=== PATIENT | male | born 1960 | race Caucasian/White ===

== ENCOUNTER → 2016-05-11 | Outpatient (CLI) | payer BC ==
[~2016-05-11] MED LIST: ALL300 PO; DILT120C41 PO; DILT240C74 PO; ERGO1CAP41 PO; HYG/25 PO; INSDGIPEN SQ; LISI1TAB3 PO; NVLGIPEN SC; OXYC-57 PO; POTA-327 PO; POTA10CA28 PO
--- NOTE | 2016-05-11 12:53 | DIAGNOSTIC IMAGING REPORT ---
KUB CLINICAL HISTORY: N20.1 Ureteral [id number] nephrocalcinosis COMPARISON STUDY: 05/23/2013. CT study dated 02/03/2016 FINDINGS: Multiple left renal mid to lower pole calcifications. This is similar to the patient's prior CT study. No significant right renal nephrocalcinosis. No significant pelvic or abdominal calcifications. Nonobstructive bowel pattern. IMPRESSION: Multiple mid to lower pole left renal calcifications unchanged from the patient's prior CT study. No new or interval finding. Electronically signed by: Mendez Vallejo M.D. 05/11/2016 12:52 PM Dictated Date/Time: 05/11/2016 12:50 PM
== END | disposition home or self-care (01) ==
LOC: C.RAD 12:17
PROVIDERS: ATTEND Urology
DX: N20.1 Calculus of ureter (principal)

== ENCOUNTER → 2016-05-18 | Outpatient (CLI) | payer BC ==
[2016-05-18 13:01] LABS: BASO % 0.3 %; BASO ABS # 0.02 K/uL (0-0.2); COMPLETE YES; EOS % 2.3 %; HEMATOCRIT 47.6 % (42-52); IG% 0.3 %; LYMPH % 29.3 %; MEAN CELL VOLUME 87.8 fL (80-100); MEAN CORPUSCULAR HEMOGLOBIN 30.8 pg (25-34); MEAN CORPUSCULAR HGB CONC 35.1 g/dl (32-36); MEAN PLATELET VOLUME 10.3 fL (7.4-10.4); MONO % 4.9 %; NEUT % 62.9 %; PLATELET COUNT 166 K/uL (130-400); RED BLOOD COUNT 5.42 M/uL (4.7-6.1); WHITE BLOOD COUNT 6.15 K/uL (4.8-10.8)
--- NOTE | 2016-05-18 13:07 | DIAGNOSTIC IMAGING REPORT ---
CHEST 2 VIEWS ROUTINE CLINICAL HISTORY: Preoperative evaluation. Nephrolithiasis. COMPARISON STUDY: Chest radiograph March 05, 2015. FINDINGS: Elevation of the left hemidiaphragm is unchanged. Mild to moderate cardiomegaly is unchanged. There is no evidence of pulmonary edema. No consolidation is identified to suggest pneumonia. There is no pneumothorax or pleural effusion. IMPRESSION: 1. No acute cardiopulmonary findings. 2. Stable cardiomegaly. Electronically signed by: Mihir Naranjo M.D. 05/18/2016 1:06 PM Dictated Date/Time: 05/18/2016 1:05 PM
[2016-05-18 13:37] LABS: BLOOD UREA NITROGEN 21 mg/dl (7-18); BUN/CREATININE RATIO 13.7 (10-20); CARBON DIOXIDE 25 mmol/L (21-32); CHLORIDE 108 mmol/L (98-107); POTASSIUM 3.8 mmol/L (3.5-5.1); SODIUM 142 mmol/L (136-145)
[2016-05-18 14:44] LABS: URINE APPEARANCE CLEAR (CLEAR); URINE BILIRUBIN NEG (NEG); URINE COLOR YELLOW; URINE EPITHELIAL CELL AUTO 0-5 /lpf (0-5); URINE NITRITE NEG (NEG); URINE SPECIFIC GRAVITY 1.016 (1.000-1.030); UROBILINOGEN NEG (NEG)
[2016-05-18 14:48] LABS: MANUAL MICROSCOPIC REQUIRED? NO; REVIEW REQ? NO
== END | disposition home or self-care (01) ==
LOC: C.RAD 12:15
PROVIDERS: ATTEND Urology
DX: N20.0 Calculus of kidney (principal); I51.7 Cardiomegaly

== ENCOUNTER → 2016-05-27 | Outpatient (CLI) | payer BC ==
--- NOTE | 2016-05-27 17:47 | DIAGNOSTIC IMAGING REPORT ---
KUB CLINICAL HISTORY: N20.0 nephrocalcinosis COMPARISON STUDY: 05/11/2016 FINDINGS: Multiple mid to lower pole left renal calcifications unchanged. Right kidney remains obscured. Mild levoscoliosis of the lumbar spine. Mild degenerative change of the hips bilaterally. IMPRESSION: Left renal nephrocalcinosis unchanged. The right kidney is obscured by overlying bowel content. Electronically signed by: Mendez Vallejo M.D. 05/27/2016 5:45 PM Dictated Date/Time: 05/27/2016 5:44 PM
== END | disposition home or self-care (01) ==
LOC: C.RAD 17:22
PROVIDERS: ATTEND Urology
DX: E83.59 Other disorders of calcium metabolism (principal); N29 Other disorders of kidney and ureter in diseases classified elsewhere

== ENCOUNTER → 2016-05-28 | Day surgery (SDC) | payer BC ==
[2016-05-18 15:02] VITALS: Ht 172.7 cm; Wt 109.1 kg
[~2016-05-28] VITALS: Ht 172.7 cm; Wt 109.1 kg
[~2016-05-28] MED LIST changes: +ATROPINE SULFATE 0.1 MG/ML 5ML SYR IV PRN; +CIPROFLOXACIN 400MG / D5W IV SCH; +FENTANYL CITRATE INJ 50 MCG/1 ML 2 ML VIAL IV PRN; +FENTANYL CITRATE INJ 50 MCG/1 ML 2 ML VIAL ONE; +LABETALOL HCL IV 5 MG/ML 20ML IV PRN; +LACTATED RINGER'S 1000ML 1,000 ML IV SCH; +LIDOCAINE HCL 2% 2 ML VIAL (20MG/ML) ONE; +ONDANSETRON INJ 2 MG/ML 2 ML VIAL IV PRN; +ONDANSETRON INJ 2 MG/ML 2 ML VIAL ONE; +PROPOFOL IV EMULSION 10 MG/ML 20 ML VIAL IV ONE
--- NOTE | 2016-05-28 07:03 | History & Physical Bridge Note ---
H&P Re-Evaluation Bridge Note: I have examined the patient, reviewed the History & Physical and in the interval since the performance of the History & Physical I have noted the following changes of clinical significance: No changes noted
--- NOTE | 2016-05-28 09:05 | [facility] Post Operative Brief Note ---
Immediate Operative Summary Operative Date May 28, 2016. Pre-Operative Diagnosis Left Renal Calculi Post-Operative Diagnosis Same Procedure(s) Performed Left Extracorporeal Shock Wave Lithotripsy - Renal Surgeon Dr. Alvarez Principal Account Clerk Surgeon(s) None Estimated Blood Loss 0 mL Findings multiple left renal stones Specimens None Disposition Recovery Room / PACU
--- NOTE | 2016-05-28 09:08 | Discharge Instructions-SurgCtr ---
Discharge Instructions Visit Reason for Visit: Stones Discharge Discharge Diagnosis / Problem: post op left renal stones Discharge Goals Goal(s): Improve function, Improve disease control Activity Recommendations Activity Limitations: as noted below (no driving on narcotics) Anesthesia . Post Anesthesia Instructions: If you have had General Anesthesia or IV Sedation: * Do not drive today. * Resume driving when surgeon permits. * Do not make important decisions or sign legal documents today. * Call surgeon for: 1. Temperature elevations greater than 101 degrees F. 2. Uncontrollable pain. 3. Excessive bleeding. 4. Persistent nausea and vomiting. 5. Medication intolerance (nausea, vomiting or rash). * For nausea and vomiting use only clear liquids such as: tea, soda, bouillon until nausea subsides, then gradually increase diet as tolerated. * If you have any concerns or questions, call your surgeon's office. If physician is unavailable and it is an emergency, call 911 or go to the nearest emergency room. . Diet Recommendations Home Diet: resume previous diet Procedures Procedures Performed: Left Extracorporeal Shock Wave Lithotripsy - Renal Pending Studies Studies pending at discharge: no Medical Emergencies . Who to Call and When: Medical Emergencies: If at any time you feel your situation is an emergency, please call 911 immediately. . Non-Emergent Contact . . "Provider Documentation" section prepared by Rom Alvarez. [place] Drug Monitoring Program Drug Monitoring Findings: reviewed
[2016-05-28 09:52] VITALS: TEMP 36.5
--- NOTE | 2016-05-28 09:59 | Anesthesia Progress Nt - [facility] ---
Anesthesia Post Op Note Date & Time May 28, 2016 at 09:58 Vital Signs Pain Intensity: 0 Vital Signs Past 12 Hours Date Time Temp Pulse Resp B/P Pulse Ox O2 Delivery O2 Flow Rate FiO2 05/28/16 09:49 70 16 94 05/28/16 09:49 70 16 05/28/16 09:48 147/96 05/28/16 09:44 75 14 05/28/16 09:44 76 14 92 05/28/16 09:43 153/102 05/28/16 09:42 78 11 94 05/28/16 09:42 71 11 05/28/16 09:40 36.7 72 16 146/93 95 Room Air 05/28/16 09:40 146/93 05/28/16 09:38 144/107 05/28/16 09:37 84 16 05/28/16 09:37 84 16 93 05/28/16 09:33 142/98 05/28/16 09:32 75 16 93 05/28/16 09:32 76 16 05/28/16 09:29 136/99 05/28/16 09:27 88 26 96 05/28/16 09:27 87 26 05/28/16 09:23 122/96 05/28/16 09:22 82 15 05/28/16 09:22 82 15 98 05/28/16 09:18 139/94 05/28/16 09:17 84 17 97 05/28/16 09:17 84 17 05/28/16 09:13 139/115 05/28/16 09:12 36.4 82 16 133/96 96 Diffusion Mask 6 05/28/16 09:12 91 14 97 05/28/16 09:12 90 14 05/28/16 07:20 36.4 75 18 193/112 95 Room Air Notes Mental Status: alert / awake / arousable, participated in evaluation Pt Amnestic to Procedure: Yes Nausea / Vomiting: adequately controlled Pain: adequately controlled Airway Patency, RR, SpO2: stable & adequate BP & HR: stable & adequate Hydration State: stable & adequate Anesthetic Complications: no major complications apparent
[2016-05-28 10:17] VITALS: BP 132/84; PULSE 76; O2SAT 95
--- NOTE | 2016-05-29 02:38 | OPERATIVE REPORT ---
DATE OF OPERATION: 05/28/2016 PREOPERATIVE DIAGNOSIS: Left renal stone. POSTOPERATIVE DIAGNOSIS: Same. HISTORY OF PRESENTATION: The patient is a 55-year-old male with left renal stone who presents now for ESWL. DESCRIPTION OF THE PROCEDURE: The patient was taken to the operating room where he was placed in the supine position. He had been given preoperative antibiotics and Venodyne stockings. The stones were visualized in 2 views and he received 2500 shocks up to level 5. At the end of the procedure he was transferred to the recovery room in stable condition. I attest to the content of the Intraoperative Record and any orders documented therein. Any exceptio ns are noted below.
== END | disposition home or self-care (01) ==
LOC: X.SURG 07:00
PROVIDERS: ATTEND Urology
DX: N20.0 Calculus of kidney (principal); Z87.442 Personal history of urinary calculi; I12.9 Hypertensive chronic kidney disease with stage 1 through stage 4 chronic kidney disease, or unspecified chronic kidney disease; N18.2 Chronic kidney disease, stage 2 (mild); N25.81 Secondary hyperparathyroidism of renal origin

== ENCOUNTER → 2016-06-08 | Outpatient (CLI) | payer BC ==
[~2016-06-08] MED LIST changes: -ATROPINE SULFATE 0.1 MG/ML 5ML SYR IV PRN; -CIPROFLOXACIN 400MG / D5W IV SCH; -FENTANYL CITRATE INJ 50 MCG/1 ML 2 ML VIAL IV PRN; -FENTANYL CITRATE INJ 50 MCG/1 ML 2 ML VIAL ONE; -LABETALOL HCL IV 5 MG/ML 20ML IV PRN; -LACTATED RINGER'S 1000ML 1,000 ML IV SCH; -LIDOCAINE HCL 2% 2 ML VIAL (20MG/ML) ONE; -ONDANSETRON INJ 2 MG/ML 2 ML VIAL IV PRN; -ONDANSETRON INJ 2 MG/ML 2 ML VIAL ONE; -PROPOFOL IV EMULSION 10 MG/ML 20 ML VIAL IV ONE
--- NOTE | 2016-06-08 08:58 | DIAGNOSTIC IMAGING REPORT ---
KUB CLINICAL HISTORY: Nephrolithiasis. Recent lithotripsy. FINDINGS: An AP abdominal radiograph is compared to study dated 05/27/16. The right renal shadow is largely obscured by overlying bowel gas. There are several small nonobstructing left renal calculi measuring up to 6 mm. The stone burden appears diminished as compared to the 05/27/2016 examination. No calcifications are clearly seen projecting over the ureters. Suture material is noted in the pelvis. There is no radiographic evidence of bowel obstruction. Mild lumbar sacral spondylosis and scoliosis is observed. IMPRESSION: 1. There are numerous small nonobstructing left renal calculi, with the stone burden diminished as compared to the 05/27/2016 examination. 2. No right renal calculi are identified and the right renal shadow was largely obscured by overlying bowel gas. Electronically signed by: Catalino Markham M.D. 06/08/2016 8:56 AM Dictated Date/Time: 06/08/2016 8:54 AM
[2016-06-08 09:36] LABS: HEMATOCRIT 48.5 % (42-52); MEAN CELL VOLUME 87.1 fL (80-100); MEAN CORPUSCULAR HEMOGLOBIN 30.2 pg (25-34); MEAN CORPUSCULAR HGB CONC 34.6 g/dl (32-36); MEAN PLATELET VOLUME 10.4 fL (7.4-10.4); PLATELET COUNT 156 K/uL (130-400); RED BLOOD COUNT 5.57 M/uL (4.7-6.1); WHITE BLOOD COUNT 6.44 K/uL (4.8-10.8)
[2016-06-08 09:37] LABS: URINE APPEARANCE CLEAR (CLEAR); URINE BILIRUBIN NEG (NEG); URINE COLOR YELLOW; URINE EPITHELIAL CELL AUTO 0-5 /lpf (0-5); URINE NITRITE NEG (NEG); URINE SPECIFIC GRAVITY 1.015 (1.000-1.030); UROBILINOGEN NEG (NEG)
[2016-06-08 09:42] LABS: MANUAL MICROSCOPIC REQUIRED? NO; REVIEW REQ? NO
[2016-06-08 09:48] LABS: ALT/SGPT 40 U/L (12-78); BLOOD UREA NITROGEN 30 mg/dl (7-18); BUN/CREATININE RATIO 18.7 (10-20); CALCIUM 9.7 mg/dl (8.5-10.1); CARBON DIOXIDE 23 mmol/L (21-32); CHLORIDE 104 mmol/L (98-107); GLUCOSE 125 mg/dl (70-99); MAGNESIUM 2.2 mg/dl (1.8-2.4); SODIUM 138 mmol/L (136-145); URIC ACID 6.2 mg/dl (2.6-7.2)
[2016-06-08 09:51] LABS: ALB/GLOB RATIO 1.2 (0.9-2); ALKALINE PHOSPHATASE 103 U/L (45-117); AST/SGOT 19 U/L (15-37)
[2016-06-08 09:58] LABS: URINE PROTIEN/CREAT RATIO 0.6 (0-0.2); URINE TOTAL PROTEIN 60.4 mg/dl (0-11.9)
--- NOTE | 2016-06-14 11:01 | CODING QUERY MEDICAL NECESSITY ---
SUPPORTING DIAGNOSIS NEEDED A supporting diagnosis is required for the test/procedure performed on this patient in order for us to be reimbursed by the patient's insurance. Please provide a supporting diagnosis for the following test/procedure listed below next to the test name along with your signature. *If there is no additional diagnosis for this patient that would support the following test/procedure please document that below next to the test/procedure. Test(s)/Procedure(s) that require a supporting diagnosis: * VITAMIN D 25-HYDROXY DIAGNOSIS: * DOS: 06/08/16 Provider Signature: Date: Thank you Feli Ryan Health Information Management Once completed, please kindly fax back to [phone] For questions please call [phone]
== END | disposition home or self-care (01) ==
LOC: C.RAD 08:15
PROVIDERS: ATTEND Urology
DX: N20.0 Calculus of kidney (principal); I12.9 Hypertensive chronic kidney disease with stage 1 through stage 4 chronic kidney disease, or unspecified chronic kidney disease; N18.2 Chronic kidney disease, stage 2 (mild); E55.9 Vitamin D deficiency, unspecified

== ENCOUNTER → 2016-10-11 | Outpatient (CLI) | payer BC ==
[2016-10-11 09:51] LABS: BLOOD UREA NITROGEN 20 mg/dl (7-18); BUN/CREATININE RATIO 11.5 (10-20); CALCIUM 9.3 mg/dl (8.5-10.1); CARBON DIOXIDE 27 mmol/L (21-32); CHLORIDE 107 mmol/L (98-107); GLUCOSE 210 mg/dl (70-99); POTASSIUM 3.9 mmol/L (3.5-5.1); SODIUM 142 mmol/L (136-145)
[2016-10-11 09:52] LABS: PHOSPHORUS 2.5 mg/dl (2.5-4.9); URIC ACID 8.2 mg/dl (2.6-7.2)
== END | disposition home or self-care (01) ==
LOC: C.LAB 07:53
PROVIDERS: ATTEND Internal Medicine Nephrology
DX: N18.2 Chronic kidney disease, stage 2 (mild) (principal); N20.0 Calculus of kidney; N25.81 Secondary hyperparathyroidism of renal origin

== ENCOUNTER 2016-11-18 13:53 | Inpatient (IN) | payer BC ==
[~2016-11-18] VITALS: Ht 172.7 cm; Wt 111.0 kg
[~2016-11-18 13:53] MED LIST changes: -DILT120C41 PO; -ERGO1CAP41 PO; -HYG/25 PO; -INSDGIPEN SQ; -NVLGIPEN SC; -POTA10CA28 PO
[2016-11-18] MEDS ORDERED: SODIUM CHLORIDE 0.9% 1000ML 1,000 ML IV STA (14:09)
[2016-11-18 14:24] LABS: URINE APPEARANCE CLEAR (CLEAR); URINE BILIRUBIN NEG (NEG); URINE COLOR YELLOW; URINE NITRITE NEG (NEG); URINE PH 5.5 (4.5-7.5); URINE SPECIFIC GRAVITY 1.035 (1.000-1.030); UROBILINOGEN NEG (NEG)
[2016-11-18] MEDS ORDERED: POTA10CA28 PO (14:26)
[2016-11-18] MEDS ORDERED: DILT120C41 PO (14:26)
[2016-11-18] MEDS ORDERED: ERGO1CAP41 PO (14:26)
[2016-11-18] MEDS ORDERED: HYG/25 PO (14:26)
[2016-11-18 14:27] LABS: BASO % 0.4 %; BASO ABS # 0.03 K/uL (0-0.2); COMPLETE YES; EOS % 1.5 %; IG% 0.2 %; LYMPH % 18.3 %; LYMPH ABS # 1.55 K/uL (1.2-3.4); MEAN CELL VOLUME 86.6 fL (80-100); MEAN CORPUSCULAR HEMOGLOBIN 30.5 pg (25-34); MEAN CORPUSCULAR HGB CONC 35.2 g/dl (32-36); MEAN PLATELET VOLUME 10.9 fL (7.4-10.4); NEUT % 73.6 %; PLATELET COUNT 229 K/uL (130-400); RED BLOOD COUNT 5.31 M/uL (4.7-6.1); WHITE BLOOD COUNT 8.47 K/uL (4.8-10.8)
[2016-11-18 14:30] LABS: MANUAL MICROSCOPIC REQUIRED? NO; REVIEW REQ? NO
[2016-11-18] MEDS ORDERED: DKA GOAL RANGE 150-250 mg/dl 1 EA ONE (14:30)
[2016-11-18 14:39] LABS: ISTAT CARBON DIOXIDE 22 mEq/l (24-31); ISTAT CHLORIDE 89 mEq/L (101-112); ISTAT CREATININE 2.3 mg/dl (0.6-1.3); ISTAT HEMATOCRIT 48 % (42-52); ISTAT HEMOGLOBIN 16.3 g/dl (14.0-18.0); ISTAT IONIZED CALCIUM 1.13 mmol/l (1.12-1.32); ISTAT SODIUM 126 mEq/L (135-144)
[2016-11-18 14:56] LABS: BETA-HYDROXYBUTYRATE 1.27 mg/dL (0.2-2.81); BUN/CREATININE RATIO 11.7 (10-20); CREATININE 2.9 mg/dl (0.60-1.40)
[2016-11-18 14:59] LABS: VEN BLD GAS O2 SATURATION 86.1 %; VEN BLOOD GAS BASE EXCESS -1.9 mEq/L
[2016-11-18] MEDS ORDERED: GLUCOSE 10 TABS/TUBE PO PRN (15:00)
[2016-11-18] MEDS ORDERED: GLUCOSE 40% GEL 15 GM TUBE PO PRN (15:00)
[2016-11-18] MEDS ORDERED: DEXTROSE 50% 50 ML SYR IV PRN (15:00)
[2016-11-18] MEDS ORDERED: INSULIN HUMAN REGULAR IV BOLUS 3 UNIT in SYRINGE 0 ML IV SCH (15:00)
[2016-11-18] MEDS ORDERED: GLUCAGON FOR INJ 1 MG VIAL SQ PRN (15:00)
[2016-11-18] MEDS: INSULIN REGULAR 250 UNITS in SODIUM CHLORIDE 0.9% 250ML 250 ML IV SCH ×5 (15:06→21:51)
[2016-11-18] MEDS ORDERED: INSULIN IV INFUSION PROTOCOL STA (16:25)
[2016-11-18] MEDS ORDERED: ONDANSETRON INJ 2 MG/ML 2 ML VIAL IV PRN (16:30)
[2016-11-18] MEDS ORDERED: ACETAMINOPHEN 325 MG TAB PO PRN (16:30)
[2016-11-18] MEDS ORDERED: HHS GOAL RANGE 250-350 mg/dl ONE (16:30)
[2016-11-18] MEDS ORDERED: MAGNESIUM HYDROXIDE SUSP 30 ML UDC PO PRN (16:30)
[2016-11-18] MEDS ORDERED: POLYETHYLENE (MIRALAX) 17 GM PACK PO PRN (16:30)
[2016-11-18] MEDS ORDERED: ALUMINUM/MAGNESIUM/SIMETH (MAALOX MAX) 30 ML UDC PO PRN (16:30)
[2016-11-18] MEDS ORDERED: MODERATE STRESS LEVEL ONE (16:30)
[2016-11-18] MEDS ORDERED: ZOLPIDEM TARTRATE 5 MG TAB PO PRN (16:30)
--- NOTE | 2016-11-18 16:46 | Medical Student: [facility] ---
Med Student History & Physical Date & Time of Service: Nov 18, 2016 at 15:49 Chief Complaint: Dizzy, Dry Mouth Primary Care Physician: Alex Sol D.O. History of Present Illness Source: patient Arsen Castro is a 56 yo male, with PMHx of HTN and recurrent kidney stones, who presented to the ED referred by his PCP for abnormal blood sugar/labs complaining of feeling "jittery," increased thirst/urination and dry mouth for 4 days. Patient reports associated symptoms of double/blurry vision, some tingling in both hands, intermittent palpitations at night, and lightheadedness upon standing during this same 4 day period. He notes decreased appetite and disinterest in sugary beverages. Patient states he has had loose stool since colon polyp removal in 2009, but for last 4 days stools have been more formed/ soft. Patient denies fever, chills, room spinning dizziness, chest pain, shortness of breath, flank pain, hematuria, abdominal pain, nausea, vomiting, diarrhea, or constipation. Past Medical/Surgical History Medical Problems: -HTN -Recurrent kidney stones (9 since 2008, some needing lithotripsy) -Colon polyps removed 2009 (family history of colon cancer) Family History Father: diabetes, cancer (bone) Mother: HTN, diabetes, cancer (colon) Social History Smoking Status: Never Smoker Alcohol Use: occasionally (1 drink 1-2x a month) Drug Use: none Marital Status: single Occupational Status: employed ([employer]) Allergies Coded Allergies: No Known Allergies (Unverified , 05/28/16) Medications Allopurinol (Allopurinol), 300 MG PO QAM Chlorthalidone (Hygroton), 25 MG PO DAILY Diltiazem Hcl (Dilt-Xr), 120 MG PO DAILY Ergocalciferol (Vitamin D 91867 Unit), 50,000 UNITS PO MONTHLY Lisinopril (Zestril), 30 MG PO QAM Potassium Chloride (Micro-K Ext Rel), 20 MEQ PO TID Review of Systems Constitutional: No fever, No chills, No sweats, No weight loss Eyes: + worsening of vision (blurry), + diplopia, No eye pain, No redness ENT: No hearing loss, No nasal symptoms, No sore throat Respiratory: No cough, No sputum, No shortness of breath Cardiovascular: + palpitations, No chest pain, No edema Abdomen: + problem reported (change in stool from loose (since colon resection ) to soft/formed), No pain, No nausea, No vomiting, No diarrhea, No constipation Musculoskeletal: No joint pain, No muscle pain, No swelling Genitourinary - Male: + urinary frequency, No dysuria, No urinary incontinence Neurologic: + numbness/tingling (tingling in hands), + problem reported ( lightheaded upon standing), No memory loss, No vertigo Psychiatric: No anxiety Endocrine: + excessive thirst, + excessive urination Hematologic / Lymphatic: No abnormal bleeding/bruising, No swollen lymph nodes Integumentary: No rash, No new/changing skin lesions Physical Exam Vital Signs (24 Hours) Date Time Temp Pulse Resp B/P (MAP) Pulse Ox O2 Delivery O2 Flow Rate FiO2 11/18/16 13:56 36.8 105 18 109/69 95 Room Air General Appearance: WD/WN, no apparent distress Head: normocephalic, atraumatic Eyes: normal inspection, PERRL, EOMI ENT: normal ENT inspection, hearing grossly normal, pharynx normal, + pertinent finding (right TM normal, left TM unable to visualize secondary to wax ) Neck: supple, no adenopathy Respiratory/Chest: chest non-tender, lungs clear, normal breath sounds, no respiratory distress, no accessory muscle use Cardiovascular: regular rate, rhythm, no edema, no murmur Abdomen/GI: normal bowel sounds, non tender, soft, no organomegaly Back: normal inspection, no muscle spasm, normal range of motion Extremities/Musculoskelatal: normal inspection, no calf tenderness, no pedal edema, normal range of motion, non-tender Neurologic/Psych: no motor/sensory deficits, alert, normal mood/affect, oriented x 3 Skin: normal color, warm/dry, no rash Lymphatic: no adenopathy Diagnostics Laboratory Results Results Past 24 Hours Test 11/18/16 14:03 11/18/16 14:10 11/18/16 14:23 11/18/16 14:43 Range/Units Bedside Glucose > 600 70-99 mg/dl White Blood Count 8.47 4.8-10.8 K/uL Red Blood Count 5.31 4.7-6.1 M/uL Hemoglobin 16.2 14.0-18.0 g/dL Hematocrit 46.0 42-52 % Mean Corpuscular Volume 86.6 80-100 fL Mean Corpuscular Hemoglobin 30.5 25-34 pg Mean Corpuscular Hemoglobin Concent 35.2 32-36 g/dl Platelet Count 229 130-400 K/uL Mean Platelet Volume 10.9 7.4-10.4 fL Neutrophils (%) (Auto) 73.6 % Lymphocytes (%) (Auto) 18.3 % Monocytes (%) (Auto) 6.0 % Eosinophils (%) (Auto) 1.5 % Basophils (%) (Auto) 0.4 % Neutrophils # (Auto) 6.23 1.4-6.5 K/uL Lymphocytes # (Auto) 1.55 1.2-3.4 K/uL Monocytes # (Auto) 0.51 0.11-0.59 K/uL Eosinophils # (Auto) 0.13 0-0.5 K/uL Basophils # (Auto) 0.03 0-0.2 K/uL RDW Standard Deviation 42.3 36.4-46.3 fL RDW Coefficient of Variation 13.4 11.5-14.5 % Immature Granulocyte % (Auto) 0.2 % Immature Granulocyte # (Auto) 0.02 0.00-0.02 K/uL Urine Color YELLOW Urine Appearance CLEAR CLEAR Urine pH 5.5 4.5-7.5 Urine Specific [place] 1.035 1.000-1.030 Urine Protein NEG NEG Urine Glucose (UA) 3+ NEG Urine Ketones NEG NEG Urine Occult Blood NEG NEG Urine Nitrite NEG NEG Urine Bilirubin NEG NEG Urine Urobilinogen NEG NEG Urine Leukocyte Esterase NEG NEG Sodium Level 125 136-145 mmol/L Potassium Level 4.0 3.5-5.1 mmol/L Chloride Level 89 98-107 mmol/L Carbon Dioxide Level 23 21-32 mmol/L Anion Gap 13.0 19.0 16-25 mmol/L Blood Urea Nitrogen 34 7-18 mg/dl Creatinine 2.90 0.60-1.40 mg/dl Est Creatinine Clear Calc Drug Dose 34.8 ml/min Estimated GFR () 27.0 Estimated GFR (Non- 23.3 BUN/Creatinine Ratio 11.7 10-20 Random Glucose 757 70-99 mg/dl Calcium Level 9.0 8.5-10.1 mg/dl Beta-Hydroxybutyric Acid 1.27 0.2-2.81 mg/dL Bedside Hemoglobin 16.3 14.0-18.0 g/dl Bedside Hematocrit 48 42-52 % Bedside Sodium 126 135-144 mEq/L Bedside Potassium 4.2 3.3-5.0 mEq/L Bedside Chloride 89 101-112 mEq/L Bedside Total CO2 22 24-31 mEq/l Bedside Blood Urea Nitrogen 34 7-18 mg/dl Bedside Creatinine 2.3 0.6-1.3 mg/dl Bedside Glucose (other) > 700 70-99 mg/dl Bedside Ionized Calcium (Mary) 1.13 1.12-1.32 mmol/l Venous Blood pH 7.41 7.36-7.41 Venous Blood Partial Pressure CO2 36 38.0-50.0 mmHg Venous Blood Partial Pressure O2 53 mmHg Venous Blood HCO3 22 mmol/L Venous Blood Oxygen Saturation 86.1 % Venous Blood Base Excess -1.9 mEq/L Impression Assessment and Plan Arsen Castro is a 56 yo male with PMHx of HTN, gout, and recurrent kidney stones , presented to the ED, referred from PCP, with elevated blood sugars in the 700s. Patient had symptoms of hyperglycemia (dry mouth, excessive thirst/ urination, tingling in fingers, blurry/double vision, lightheaded, palpitations at night). Patient will be admitted overnight for treatment of high blood sugars and to monitor acute renal injury. T2DM, new onset - Initial insulin injection of (Insulin Human Regular 3 unit/Syringe) followed by insulin drip (Insulin Human Regular 250 units/Sodium Chloride at 2.5ml/hr) started in ED. 10 units of Lantus given for basal insulin. - 1 bolus IV NS fluids with potassium (with 200ml KCl in fluids, discontinue home medication: Micro-K Ext Rel (Potassium Chloride) 10 Meq Capcr 20 Meq PO TID ) - Urinalysis to look for ketones/glucose in urine - Beta hydroxybutyrate level negative, making DKA less likely - Venous blood gas showed pCO2 36, pH 7.41, pO2 53, HCO3 22 - Consult endocrinology - Consult diabetes nurse educators - Monitor insulin levels overnight to determine senior care medication treatment plan Acute kidney injury - Monitor Cr (today 2.9), BUN, Cr/BUN ratio, FeNa, electrolytes - Urinalysis shows 1.035 specific gravity, indicating patient can still concentrate urine - 1 bolus IV fluids NS - Discontinue home medications that could further damage kidney (Zestril ( Lisinopril) 30 Mg Tab 30 Mg PO QAM, Allopurinol 300 Mg Tab 300 Mg PO QAM, [place] (Chlorthalidone) 25 Mg Tab 25 Mg PO DAILY) HTN, chronic - Monitor BPs while in hospital - Continue home medication (Dilt-Xr (Diltiazem Hcl) 120 Mg Cap 120 Mg PO DAILY) Level of Care Med/Surg Resuscitation Status FULL RESUSCITATION DVT Prophylaxis unfractionated heparin SQ
--- NOTE | 2016-11-18 16:53 | History and Physical ---
History & Physical Date & Time of Service: Nov 18, 2016 at 16:30 Chief Complaint: Dizzy, Dry Mouth Primary Care Physician: Alex Sol D.O. History of Present Illness Source: patient 56 y/o M Hx HTN - pt was at his primary MDs office one day prior. Routine labs revealed an elevated glucose and he was instructed to attend the hospital the following day. He admits to some polydipsia and polyuria but was otherwise asymptomatic and did not know he was diabetic. Initial glucose registered at over 700. Labs were also notable for MERCED. Past Medical/Surgical History Medical Problems: (1) Benign hypertension Status: Chronic (2) Colon Surgery Status: Resolved (3) Kidney stone Status: Chronic (4) Lithotripsy Status: Resolved 5) Gout Family History Patient reports no known family medical history. DM, colon CA Social History Does not drink or smoke Smoking Status: Never Smoker Drug Use: none Marital Status: single Occupational Status: employed Allergies Coded Allergies: No Known Allergies (Unverified , 05/28/16) Home Medications Scheduled Allopurinol (Allopurinol), 300 MG PO QAM Chlorthalidone (Hygroton), 25 MG PO DAILY Diltiazem Hcl (Dilt-Xr), 120 MG PO DAILY Ergocalciferol (Vitamin D 32017 Unit), 50,000 UNITS PO MONTHLY Lisinopril (Zestril), 30 MG PO QAM Potassium Chloride (Micro-K Ext Rel), 20 MEQ PO TID Review of Systems Constitutional: No fever, No chills, No sweats Eyes: No worsening of vision ENT: No hearing loss, No unusual epistaxis, No nasal symptoms Respiratory: No cough, No sputum, No wheezing Cardiovascular: No chest pain, No orthopnea, No PND Abdomen: No pain, No nausea, No vomiting Musculoskeletal: No joint pain Genitourinary - Male: No hematuria, No dysuria, No urinary frequency, No urinary urgency Neurologic: No memory loss, No paralysis, No weakness Psychiatric: No depression symptoms Endocrine: + excessive thirst, + excessive urination, No fatigue Hematologic / Lymphatic: No abnormal bleeding/bruising, No clotting problems Integumentary: No rash Allergic / Immunologic: No environmental allergies Physical Exam Vital Signs Date Time Temp Pulse Resp B/P (MAP) Pulse Ox O2 Delivery O2 Flow Rate FiO2 11/18/16 16:16 87 18 135/112 95 Room Air 11/18/16 13:56 36.8 105 18 109/69 95 Room Air General Appearance: WD/WN, no apparent distress Head: normocephalic, atraumatic Eyes: normal inspection ENT: normal ENT inspection, hearing grossly normal, TMs normal, pharynx normal Neck: supple, no adenopathy, thyroid normal, no JVD Respiratory/Chest: chest non-tender, lungs clear, normal breath sounds Cardiovascular: regular rate, rhythm, no edema, no gallop, no JVD, no murmur, normal peripheral pulses Abdomen/GI: normal bowel sounds, non tender, soft Back: normal inspection, no CVA tenderness Extremities/Musculoskelatal: normal inspection, no calf tenderness, normal capillary refill, no pedal edema, normal range of motion 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, no motor/sensory deficits, alert, normal mood/affect, normal reflexes, oriented x 3 Skin: normal color, warm/dry, no rash Diagnostics Laboratory Results Results Past 24 Hours Test 11/18/16 14:03 11/18/16 14:10 11/18/16 14:23 11/18/16 14:43 Range/Units Bedside Glucose > 600 70-99 mg/dl White Blood Count 8.47 4.8-10.8 K/uL Red Blood Count 5.31 4.7-6.1 M/uL Hemoglobin 16.2 14.0-18.0 g/dL Hematocrit 46.0 42-52 % Mean Corpuscular Volume 86.6 80-100 fL Mean Corpuscular Hemoglobin 30.5 25-34 pg Mean Corpuscular Hemoglobin Concent 35.2 32-36 g/dl Platelet Count 229 130-400 K/uL Mean Platelet Volume 10.9 7.4-10.4 fL Neutrophils (%) (Auto) 73.6 % Lymphocytes (%) (Auto) 18.3 % Monocytes (%) (Auto) 6.0 % Eosinophils (%) (Auto) 1.5 % Basophils (%) (Auto) 0.4 % Neutrophils # (Auto) 6.23 1.4-6.5 K/uL Lymphocytes # (Auto) 1.55 1.2-3.4 K/uL Monocytes # (Auto) 0.51 0.11-0.59 K/uL Eosinophils # (Auto) 0.13 0-0.5 K/uL Basophils # (Auto) 0.03 0-0.2 K/uL RDW Standard Deviation 42.3 36.4-46.3 fL RDW Coefficient of Variation 13.4 11.5-14.5 % Immature Granulocyte % (Auto) 0.2 % Immature Granulocyte # (Auto) 0.02 0.00-0.02 K/uL Urine Color YELLOW Urine Appearance CLEAR CLEAR Urine pH 5.5 4.5-7.5 Urine Specific [place] 1.035 1.000-1.030 Urine Protein NEG NEG Urine Glucose (UA) 3+ NEG Urine Ketones NEG NEG Urine Occult Blood NEG NEG Urine Nitrite NEG NEG Urine Bilirubin NEG NEG Urine Urobilinogen NEG NEG Urine Leukocyte Esterase NEG NEG Sodium Level 125 136-145 mmol/L Potassium Level 4.0 3.5-5.1 mmol/L Chloride Level 89 98-107 mmol/L Carbon Dioxide Level 23 21-32 mmol/L Anion Gap 13.0 19.0 16-25 mmol/L Blood Urea Nitrogen 34 7-18 mg/dl Creatinine 2.90 0.60-1.40 mg/dl Est Creatinine Clear Calc Drug Dose 34.8 ml/min Estimated GFR () 27.0 Estimated GFR (Non- 23.3 BUN/Creatinine Ratio 11.7 10-20 Random Glucose 757 70-99 mg/dl Calcium Level 9.0 8.5-10.1 mg/dl Beta-Hydroxybutyric Acid 1.27 0.2-2.81 mg/dL Bedside Hemoglobin 16.3 14.0-18.0 g/dl Bedside Hematocrit 48 42-52 % Bedside Sodium 126 135-144 mEq/L Bedside Potassium 4.2 3.3-5.0 mEq/L Bedside Chloride 89 101-112 mEq/L Bedside Total CO2 22 24-31 mEq/l Bedside Blood Urea Nitrogen 34 7-18 mg/dl Bedside Creatinine 2.3 0.6-1.3 mg/dl Bedside Glucose (other) > 700 70-99 mg/dl Bedside Ionized Calcium (Mary) 1.13 1.12-1.32 mmol/l Venous Blood pH 7.41 7.36-7.41 Venous Blood Partial Pressure CO2 36 38.0-50.0 mmHg Venous Blood Partial Pressure O2 53 mmHg Venous Blood HCO3 22 mmol/L Venous Blood Oxygen Saturation 86.1 % Venous Blood Base Excess -1.9 mEq/L Test 11/18/16 16:01 Range/Units Bedside Glucose 490 70-99 mg/dl Impression Assessment and Plan 56 y/o M Hx HTN, gout - pt was at his primary MDs office one day prior. Routine labs revealed an elevated glucose and he was instructed to attend the hospital the following day. He admits to some polydipsia and polyuria but was otherwise asymptomatic and did not know he was diabetic. Initial glucose registered at over 700. Labs were also notable for MERCED. 1) New onset DM - no acidosis or ketosis present - pt placed on an insulin drip and initial dose of Lantus provided. We will consult endocrinology to assist with a home regimen and for outpt f/u. Diabetic teaching and nutrition consult requested. Electrolytes will be trended 2) MERCED - aggressive IVF , trend BMP , urine Na and Creat requested. 3) HTN - we have held his diuretic and GENE due to MERCED - will cont Diltiazem and provide Hydralazine as needed. 4) Gout - Allopurinol held due to MERCED - no current flare. Full code - Heparin prophylaxis Total time for this admit including review of labs, meds, records - discussion with pt and ER attending - 35 min Level of Care Med/Surg Resuscitation Status FULL RESUSCITATION VTE Prophylaxis VTE Risk Assessment Done? Y/N: Yes Risk Level: Low Given or contraindicated: Unfractionated heparin SQ
--- NOTE | 2016-11-18 17:57 | EMERGENCY ROOM VISIT NOTE ---
History Report prepared by Yvonne: Genoveva Tapia Under the Supervision of: Dr. Nikko Collins M.D. First contact with patient: 14:09 Chief Complaint: HYPERGLYCEMIA Stated Complaint: DIZZY, DRY MOUTH Nursing Triage Summary: Pt sent for BSG of 741. Dizziness, dry mouth for a couple days. Had labwork done yesterday. Denies pain. History of Present Illness 1 The patient is a 56 year old male who presents to the Emergency Room with complaints of constant hyperglycemia beginning RN FIELD. The patient states that he had been feeling dizzy for the past 5 days. He also reports a dry mouth, increased thirst, and increased urination. He saw his PCP for these symptoms and had blood work done yesterday. This blood work revealed a BSG of 741. The patient was called this morning and advised to come to the ED for further evaluation. He denies chest pain, shortness of breath, abdominal pain, nausea, and vomiting. He denies any personal history of DM. He does have a history of HTN. Source of History: patient Onset: RN FIELD Position: other (global) Symptom Intensity: BSG 741 Quality: other (hyperglycemia) Timing: constant Associated Symptoms: + urinary symptoms (increased urination), No chest pain , No SOB, No nausea, No vomiting, No abdominal pain Note: Pt notes dizziness, dry mouth, and increased thirst. Review of Systems See HPI for pertinent positives & negatives. A total of 10 systems reviewed and were otherwise negative. Past Medical & Surgical Medical Problems: (1) Benign hypertension (2) Colon Surgery (3) Hyperglycemia (4) Kidney stone (5) Lithotripsy (6) New onset type 2 diabetes mellitus Family History Patient reports no known family medical history. Social History Smoking Status: Never Smoker Alcohol Use: none Drug Use: none Marital Status: single Housing Status: lives alone Occupation Status: employed Current/Historical Medications Scheduled Allopurinol (Allopurinol), 300 MG PO QAM Chlorthalidone (Hygroton), 25 MG PO DAILY Diltiazem Hcl (Dilt-Xr), 120 MG PO DAILY Ergocalciferol (Vitamin D 36064 Unit), 50,000 UNITS PO MONTHLY Lisinopril (Zestril), 30 MG PO QAM Potassium Chloride (Micro-K Ext Rel), 20 MEQ PO TID Allergies Coded Allergies: No Known Allergies (Unverified , 05/28/16) Physical Exam Vital Signs Date Time Temp Pulse Resp B/P (MAP) Pulse Ox O2 Delivery O2 Flow Rate FiO2 11/18/16 17:33 82 18 129/77 95 Room Air 11/18/16 16:16 87 18 135/112 95 Room Air 11/18/16 13:56 36.8 105 18 109/69 95 Room Air Physical Exam Constitutional: Vital signs reviewed. Eyes: Pupils are equal round reactive to light. Conjunctiva are noninjected. ENT: Pharynx is clear without erythema or exudate. Mucous membranes are dry. Neck supple without meningeal signs. Respiratory: Clear to auscultation bilaterally. Breath sounds are equal bilaterally. Cardiovascular: Regular rate and rhythm. No rubs or gallops. GI: Soft, nondistended and nontender. Bowel sounds are present. Musculoskeletal: No peripheral edema. No lower extremity tenderness. Integumentary: No cyanosis. Neurological: The patient is awake and alert. No focal deficits. Psychiatric: Normal affect. Medical Decision & Procedures Laboratory Results 11/18/16 14:10 Red Blood Count 5.31, Mean Corpuscular Volume 86.6, Mean Corpuscular Hemoglobin 30.5, Mean Corpuscular Hemoglobin Concent 35.2, Mean Platelet Volume 10.9, Neutrophils (%) (Auto) 73.6, Lymphocytes (%) (Auto) 18.3, Monocytes (%) (Auto) 6.0, Eosinophils (%) (Auto) 1.5, Basophils (%) (Auto) 0.4, Neutrophils # (Auto) 6.23, Lymphocytes # (Auto) 1.55, Monocytes # (Auto) 0.51, Eosinophils # (Auto) 0.13, Basophils # (Auto) 0.03 11/18/16 14:10 Test 11/18/16 14:10 11/18/16 14:23 11/18/16 14:43 11/18/16 17:13 White Blood Count 8.47 K/uL (4.8-10.8) Red Blood Count 5.31 M/uL (4.7-6.1) Hemoglobin 16.2 g/dL (14.0-18.0) Hematocrit 46.0 % (42-52) Mean Corpuscular Volume 86.6 fL (80-100) Mean Corpuscular Hemoglobin 30.5 pg (25-34) Mean Corpuscular Hemoglobin Concent 35.2 g/dl (32-36) Platelet Count 229 K/uL (130-400) Mean Platelet Volume 10.9 fL (7.4-10.4) Neutrophils (%) (Auto) 73.6 % Lymphocytes (%) (Auto) 18.3 % Monocytes (%) (Auto) 6.0 % Eosinophils (%) (Auto) 1.5 % Basophils (%) (Auto) 0.4 % Neutrophils # (Auto) 6.23 K/uL (1.4-6.5) Lymphocytes # (Auto) 1.55 K/uL (1.2-3.4) Monocytes # (Auto) 0.51 K/uL (0.11-0.59) Eosinophils # (Auto) 0.13 K/uL (0-0.5) Basophils # (Auto) 0.03 K/uL (0-0.2) RDW Standard Deviation 42.3 fL (36.4-46.3) RDW Coefficient of Variation 13.4 % (11.5-14.5) Immature Granulocyte % (Auto) 0.2 % Immature Granulocyte # (Auto) 0.02 K/uL (0.00-0.02) Urine Color YELLOW Urine Appearance CLEAR (CLEAR) Urine pH 5.5 (4.5-7.5) Urine Specific [place] 1.035 (1.000-1.030) Urine Protein NEG (NEG) Urine Glucose (UA) 3+ (NEG) Urine Ketones NEG (NEG) Urine Occult Blood NEG (NEG) Urine Nitrite NEG (NEG) Urine Bilirubin NEG (NEG) Urine Urobilinogen NEG (NEG) Urine Leukocyte Esterase NEG (NEG) Est Creatinine Clear Calc Drug Dose 34.8 ml/min Estimated GFR () 27.0 Estimated GFR (Non- 23.3 BUN/Creatinine Ratio 11.7 (10-20) Calcium Level 9.0 mg/dl (8.5-10.1) Beta-Hydroxybutyric Acid 1.27 mg/dL (0.2-2.81) Bedside Hemoglobin 16.3 g/dl (14.0-18.0) Bedside Hematocrit 48 % (42-52) Bedside Sodium 126 mEq/L (135-144) Bedside Potassium 4.2 mEq/L (3.3-5.0) Bedside Chloride 89 mEq/L (101-112) Bedside Total CO2 22 mEq/l (24-31) Anion Gap 19.0 mmol/L (16-25) Bedside Blood Urea Nitrogen 34 mg/dl (7-18) Bedside Creatinine 2.3 mg/dl (0.6-1.3) Bedside Glucose (other) > 700 mg/dl (70-99) Bedside Ionized Calcium (Mary) 1.13 mmol/l (1.12-1.32) Venous Blood pH 7.41 (7.36-7.41) Venous Blood Partial Pressure CO2 36 mmHg (38.0-50.0) Venous Blood Partial Pressure O2 53 mmHg Venous Blood HCO3 22 mmol/L Venous Blood Oxygen Saturation 86.1 % Venous Blood Base Excess -1.9 mEq/L Bedside Glucose 402 mg/dl (70-99) Laboratory results as reviewed by me. Medications Administered Medications (Trade) Dose Ordered Sig/Rosalina Route Start Time Stop Time Status Last Admin Dose Admin Sodium Chloride 1,000 ml @ 999 mls/hr Q1H1M STAT IV 11/18/16 14:09 11/18/16 15:09 DC 11/18/16 14:10 999 MLS/HR Insulin Human Regular 3 unit/ Syringe 3 ml @ 1 mls/min TODAY@1500 IV 11/18/16 15:00 11/18/16 15:02 DC 11/18/16 15:04 1 MLS/MIN Insulin Human Regular 250 units/ Sodium Chloride 252.5 ml @ 0 mls/hr DAILY@1130 IV 11/18/16 15:00 11/18/16 23:59 11/18/16 17:26 3.4 MLS/HR ED Course 1408: The patient was evaluated in room A3. A complete history and physical exam was performed. 1409: NSS 1000 ml @ 999 mls/hr IV 1430: Insulin Protocol 1500: Glucagon 1 mg SQ - PRN, Dextrose 50 ml IV - PRN, Glucose 1 tabs PO - PRN, Glucose 40% Gel PO - PRN, Insulin Human Regular 350 units/Sodium Chloride IV, Insulin Human Regular 3 unit IV 1504: I spoke with Dr. Chen. We discussed the patients case. The patient will be evaluated by the [facility] for further management. 1507: I reassessed the patient at this time. He is feeling better and resting comfortably. I discussed the results and treatment plan with the patient. I answered all pertaining questions that he had. He expressed understanding and verbalized agreement. Medical Decision This is a 56-year-old male who presents with hyperglycemia. Differential diagnosis includes new onset diabetes, diabetic ketoacidosis, renal failure, hyperkalemia, dehydration. I did perform a limited focused review of portions of the patient's old chart on the electronic medical record. The patient has had no recent pertinent visits to this hospital. I did evaluate the patient as noted above. IV access was established. His bedside blood sugar was over 700.He was started on IV fluids. I also started him on insulin drip. I did order and personally review the patient's urinalysis as described above. I did order and review the patient's blood work as noted in the electronic medical record. He does have hyperkalemia. He is not acidotic. He has pseudohyponatremia. His creatinine is elevated. I did discuss the case with the hospitalist and adult protective caseworker. Medication Reconcilliation Current Medication List: was personally reviewed by me Blood Pressure Screening Patient's blood pressure: Normal blood pressure Consults Time Called: 1500 Consulting Physician: Dr. Chen Returned Call: [address] Chen. We discussed the patients case. The patient will be evaluated by the [facility] for further management. Impression Primary Impression: Diabetes mellitus, new onset Additional Impressions: Hyperglycemia Acute renal failure Scribe Attestation The scribe's documentation has been prepared under my direct and personally reviewed by me in its entirety. I confirm that the note above accurately reflects all work, treatment, procedures, and medical decision making performed by me. Departure Information Dispostion Being Evaluated By Hospitalist Referrals Alex Sol D.O. (PCP) Patient Instructions My [facility] Problem Qualifiers Additional Impressions: Acute renal failure Acute renal failure type: unspecified Qualified Codes: N17.9 - Acute kidney failure, unspecified
[2016-11-18 19:10] VITALS: BP 120/81; PULSE 76; TEMP 36.7; O2SAT 95; BMI 37.2
[2016-11-18 19:14] LABS: PROTHROMBIN TIME (PATIENT) 10.2 SECONDS (9.0-12.0)
[2016-11-18] MEDS: INSULIN ASPART 100 UNITS/ML 3 ML PEN SC SCH ×2 (19:20→21:31)
[2016-11-18] MEDS: NSS + 20MEQ KCL 1000ML 1,000 ML IV SCH (19:21)
[2016-11-18 20:41] LABS: BUN/CREATININE RATIO 13.3 (10-20); CALCIUM 8.8 mg/dl (8.5-10.1); CREATININE 2.4 mg/dl (0.60-1.40); MAGNESIUM 2.6 mg/dl (1.8-2.4); PHOSPHORUS 3.5 mg/dl (2.5-4.9); POTASSIUM 3.8 mmol/L (3.5-5.1)
[2016-11-18 20:54] LABS: BETA-HYDROXYBUTYRATE 0.99 mg/dL (0.2-2.81)
[2016-11-18] MEDS: INSULIN GLARGINE SOLOSTAR 100 UNITS/ML 3 ML PEN SQ SCH (21:30)
[2016-11-18] MEDS: HEPARIN SOD 5000 UNIT/0.5 ML CARP SQ SCH (21:31)
[2016-11-18] MEDS ORDERED: NURSING VERBAL MED ORDER ONE (22:45)
[2016-11-18 23:46] VITALS: BP 109/74; PULSE 75; TEMP 36.6; O2SAT 98
[2016-11-19 00:11] LABS: BUN/CREATININE RATIO 14.2 (10-20); CALCIUM 8.7 mg/dl (8.5-10.1); CREATININE 2.2 mg/dl (0.60-1.40); POTASSIUM 3.8 mmol/L (3.5-5.1)
[2016-11-19] MEDS: NSS + 20MEQ KCL 1000ML 1,000 ML IV SCH ×2 (02:39→08:06)
[2016-11-19 04:20] LABS: BUN/CREATININE RATIO 16.5 (10-20); CALCIUM 8.3 mg/dl (8.5-10.1); CREATININE 1.8 mg/dl (0.60-1.40); MAGNESIUM 2.4 mg/dl (1.8-2.4); PHOSPHORUS 3.2 mg/dl (2.5-4.9); POTASSIUM 3.5 mmol/L (3.5-5.1)
[2016-11-19] MEDS: HEPARIN SOD 5000 UNIT/0.5 ML CARP SQ SCH ×3 (06:07→21:12)
[2016-11-19 07:15] VITALS: BP 114/84; PULSE 68; TEMP 36.6; O2SAT 97
[2016-11-19] MEDS: DILTIAZEM HCL 120 MG ER CAP PO SCH (08:06)
[2016-11-19 08:30] VITALS: O2SAT 95
[2016-11-19] MEDS: INSULIN ASPART 100 UNITS/ML 3 ML PEN SC SCH ×4 (09:10→21:11)
[2016-11-19 09:38] LABS: CHOLESTEROL/HDL RATIO 5.6
[2016-11-19 09:56] LABS: ESTIMATED AVERAGE GLUCOSE 309 mg/dl; HA1C FLAG Normal (Normal)
[2016-11-19 12:37] VITALS: Ht 172.7 cm; Wt 111.0 kg
[2016-11-19 15:34] VITALS: BP 121/84; PULSE 77; TEMP 36.9; O2SAT 97
--- NOTE | 2016-11-19 16:11 | Progress Note ---
Subjective Date of Service: Nov 19, 2016. Subjective Pt evaluation today including: conversation w/ patient, chart review, conversation w/ planning consultant Pt is feeling much improved. No further lightheadedness or increased thirst. He has only felt unwell for the last few days. He states he was never told he had elevated BS in the past. Pt denies fever, SOB, chest pain, abd pain, n/v/c/ d, LE pain or swelling. Pt states he does eat processed foods, lots of potatoes and meat--beef specifically, his main beverage of choice is GiveGab iced tea. He does walk to work some days, which is about a mile round trip, however this will change in the winter. He works for [employer] and has access to the gym, but does not use it. Problem List Medical Problems: (1) Acute renal failure Status: Acute (2) Diabetes mellitus, new onset Status: Acute (3) Renal failure Status: Acute (4) Syncope Status: Acute Review of Systems All Other Systems: Reviewed and Negative Objective Vital Signs Date Time Temp Pulse Resp B/P (MAP) Pulse Ox O2 Delivery O2 Flow Rate FiO2 11/19/16 15:34 36.9 77 18 121/84 (96) 97 Room Air 11/19/16 08:30 95 Room Air 11/19/16 07:15 36.6 68 18 114/84 (94) 97 11/19/16 00:00 Room Air 11/18/16 23:46 36.6 75 18 109/74 (86) 98 Room Air 11/18/16 19:10 36.7 76 16 120/81 95 Room Air 11/18/16 18:03 76 18 129/70 95 Room Air 11/18/16 18:00 36.8 82 18 129/77 95 11/18/16 17:33 82 18 129/77 95 Room Air 11/18/16 16:16 87 18 135/112 95 Room Air Physical Exam General Appearance: no apparent distress, + obese Eyes: normal inspection, EOMI ENT: hearing grossly normal Neck: supple Respiratory/Chest: normal breath sounds, no respiratory distress Cardiovascular: regular rate, rhythm, no edema Abdomen: non tender, soft Extremities: non-tender, no pedal edema Neurologic/Psychiatric: alert, normal mood/affect Skin: normal color, warm/dry Laboratory Results Last 24 Hours Test 11/18/16 17:13 11/18/16 18:15 11/18/16 18:47 11/18/16 19:07 Bedside Glucose 402 mg/dl 353 mg/dl 293 mg/dl Prothrombin Time 10.2 SECONDS Prothromb Time International Ratio 1.0 Test 11/18/16 19:58 11/18/16 20:27 11/18/16 21:24 11/18/16 22:21 Sodium Level 134 mmol/L Potassium Level 3.8 mmol/L Chloride Level 99 mmol/L Carbon Dioxide Level 25 mmol/L Anion Gap 10.0 mmol/L Blood Urea Nitrogen 32 mg/dl Creatinine 2.40 mg/dl Est Creatinine Clear Calc Drug Dose 42.0 ml/min Estimated GFR () 33.9 Estimated GFR (Non- 29.3 BUN/Creatinine Ratio 13.3 Random Glucose 309 mg/dl Calcium Level 8.8 mg/dl Phosphorus Level 3.5 mg/dl Magnesium Level 2.6 mg/dl Beta-Hydroxybutyric Acid 0.99 mg/dL Bedside Glucose 300 mg/dl 225 mg/dl 200 mg/dl Test 11/18/16 23:47 11/19/16 03:51 11/19/16 07:24 11/19/16 08:53 Sodium Level 136 mmol/L 137 mmol/L Potassium Level 3.8 mmol/L 3.5 mmol/L Chloride Level 102 mmol/L 105 mmol/L Carbon Dioxide Level 25 mmol/L 25 mmol/L Anion Gap 9.0 mmol/L 7.0 mmol/L Blood Urea Nitrogen 31 mg/dl 30 mg/dl Creatinine 2.20 mg/dl 1.80 mg/dl Est Creatinine Clear Calc Drug Dose 45.8 ml/min 56.0 ml/min Estimated GFR () 37.7 48.0 Estimated GFR (Non- 32.5 41.4 BUN/Creatinine Ratio 14.2 16.5 Random Glucose 226 mg/dl 239 mg/dl Calcium Level 8.7 mg/dl 8.3 mg/dl Phosphorus Level 3.2 mg/dl Magnesium Level 2.4 mg/dl Bedside Glucose 262 mg/dl Estimated Average Glucose 309 mg/dl Hemoglobin A1c 12.4 % Triglycerides Level 529 mg/dl Cholesterol Level 158 mg/dl HDL Cholesterol 28 mg/dl LDL Cholesterol, Calculated mg/dl VLDL Cholesterol, Calculated mg/dl Cholesterol/HDL Ratio 5.6 Test 11/19/16 11:19 Bedside Glucose 240 mg/dl Assessment and Plan 56 y/o M Hx HTN, gout - pt was at his primary MDs office one day prior. Routine labs revealed an elevated glucose and he was instructed to attend the hospital the following day. He admits to some polydipsia and polyuria but was otherwise asymptomatic and did not know he was diabetic. Initial glucose registered at over 700. Labs were also notable for MERCED. New onset DM - no acidosis or ketosis present - pt placed on an insulin drip and initial dose of Lantus provided on admission Now on SSI + lantus 10 units HS and will calculate further lantus dosing based on SSI needs Diabetic teaching and nutrition consult requested Ongoing management will be somewhat limited due to pt's hx of CKD due to renal stones Metformin and newer injectables are not an option due to this Discussed with pt and advised that likely he will be started on lantus A1c is 12.4 and will likely respond better with lantus due to that Daniel discussion about prognosis with pt and the fact that given such sudden onset, he is likely able to reverse his DM with diet, exercise, and weight loss. He states he would like to pursue this angle. Given handouts on Mediterranean diet and had a lengthy discussion about nutrition and exercise changes moving forward. MERCED - with hx of CKD II and varying cr levels aggressive IVF , trend BMP , urine Na and Creat requested Hypertriglyceridemia: cannot calculate LDL Would likely benefit from a statin in the future, but will hold for now given renal function Could also likely benefit from omega 3 fish oil HTN - we have held his diuretic and GENE due to MERCED - will cont Diltiazem and provide Hydralazine as needed Resume as able Gout - Allopurinol held due to MERCED - no current flare. Full code - Heparin prophylaxis
[2016-11-19 20:00] VITALS: O2SAT 97
[2016-11-19] MEDS: INSULIN GLARGINE SOLOSTAR 100 UNITS/ML 3 ML PEN SQ SCH (21:12)
[2016-11-19 23:52] VITALS: BP 144/92; PULSE 77; TEMP 36.7; O2SAT 97
[2016-11-20] VITALS: O2SAT 97
[2016-11-20] MEDS: HEPARIN SOD 5000 UNIT/0.5 ML CARP SQ SCH (05:59)
[2016-11-20 07:33] VITALS: BP 147/93; PULSE 65; TEMP 36.6; O2SAT 96
[2016-11-20] MEDS: DILTIAZEM HCL 120 MG ER CAP PO SCH (07:54)
[2016-11-20 08:30] VITALS: O2SAT 95
[2016-11-20] MEDS: INSULIN ASPART 100 UNITS/ML 3 ML PEN SC SCH ×2 (09:12→12:42)
[2016-11-20] MEDS ORDERED: NVLGIPEN SC (10:53)
[2016-11-20] MEDS ORDERED: INSDGIPEN SQ (10:53)
--- NOTE | 2016-11-20 10:57 | Discharge Instructions ---
Discharge Instructions Date of Service Nov 20, 2016. Admission Reason for Admission: Hyperglycemia, New Onest Type 2 Diabetes Mellitus Discharge Discharge Diagnosis / Problem: New onset type 2 diabetes Discharge Goals Goal(s): Decrease discomfort, Improve function, Increase independence, Improve disease control, Improve nutritional status, Learn about illness, Diagnostic testing, Prevent Disease Progression, Specific goals Activity Recommendations Activity Limitations: resume your previous activity . Instructions / Follow-Up Instructions / Follow-Up Please follow with PCP within 7days and repeat a BMP in 2 days 11/22/16. Please send results to patient PCP Dr Sweta Johnson) Current Hospital Diet Patient's current hospital diet: AHA Diet (Heart Healthy), Diabetes Type 2 Diet Discharge Diet Recommended Diet: AHA Diet (Heart Healthy), Diabetes Type 2 Diet Procedures Procedures Performed: none Pending Studies Studies pending at discharge: no Laboratory Results Hemoglobin A1c Test 11/19/16 08:53 Range/Units Estimated Average Glucose 309 mg/dl Hemoglobin A1c 12.4 H 4.5-5.6 % Lipid Panel Test 11/19/16 08:53 Range/Units Triglycerides Level 529 H 0-150 mg/dl Cholesterol Level 158 0-200 mg/dl HDL Cholesterol 28 mg/dl Cholesterol/HDL Ratio 5.6 LDL Cholesterol, Calculated mg/dl Medical Emergencies . Who to Call and When: Medical Emergencies: If at any time you feel your situation is an emergency, please call 911 immediately. . Non-Emergent Contact Non-Emergency issues call your: Primary Care Provider Call Non-Emergent contact if: you have any medication questions . . "Provider Documentation" section prepared by Carlos South . VTE Core Measure Inpt VTE Proph given/why not?: Unfractionated heparin SQ
--- NOTE | 2016-11-20 11:16 | Discharge Summary ---
Discharge Summary Date of Service Nov 20, 2016. Discharge Summary Admission Date: Nov 18, 2016 at 16:21 Discharge Date: Nov 20, 2016 Discharge Disposition: Home Principal Diagnosis: New onset type 2 DM Problems/Secondary Diagnoses: MERCED on CKD Procedures: none Consultations: none Medication Reconciliation New Medications: Insulin Aspart (Novolog Flexpen) 100 Units/Ml Inj 5 UNITS SC TIDM for hyperglycemia for 30 Days, #1 EA 1 Refill Novalog nutritional 5 units three times with meals plus correctional scale as below. If Blood Sugars less than 140 : 0 unit If Blood sugars 141-180 : 1 unit If blood suagar 181-220 : 2 unit If Blood Sugar 221-260 : 3 units If Blood sugars 261-320 : 4 units If blood sugars 321-360 : 5 units If Blood sugars 361-420 : 6 units If blood sugar greater than 421 give 7 units and call PCP or go to Er Insulin Glargine (Lantus Solostar) 100 Unit/Ml Inj 10 UNITS SQ HS for hyperglycemia for 30 Days, #1 1 Refill Continued Medications: Allopurinol (Allopurinol) 300 Mg Tab 300 MG PO QAM Chlorthalidone (Hygroton) 25 Mg Tab 25 MG PO DAILY Diltiazem Hcl (Dilt-Xr) 120 Mg Cap 120 MG PO DAILY Ergocalciferol (Vitamin D 71941 Unit) 50,000 Unit Cap 17116 UNITS PO MONTHLY Potassium Chloride (Micro-K Ext Rel) 10 Meq Capcr 20 MEQ PO TID, CAP Discontinued Medications: Lisinopril (Zestril) 30 Mg Tab 30 MG PO QAM Referrals At Discharge Follow up Referrals: Family Practice Referral - Within 1 Week with Alex Sol D.O. Discharge Exam Review of Systems: Constitutional: No fever, No chills, No sweats, No weakness Respiratory: No cough, No sputum, No wheezing, No shortness of breath, No dyspnea on exertion, No dyspnea at rest Cardiovascular: No chest pain, No edema Abdomen: No pain, No nausea, No vomiting, No diarrhea Musculoskeletal: No joint pain, No muscle pain Neurologic: No memory loss, No paralysis, No weakness Endocrine: No fatigue, No excessive thirst Integumentary: No rash Physical Exam: General Appearance: WD/WN, no apparent distress, + obese Neck: supple, no adenopathy Respiratory/Chest: chest non-tender, lungs clear, normal breath sounds, no respiratory distress Cardiovascular: regular rate, rhythm, no edema, no gallop, no JVD Abdomen / GI: normal bowel sounds, non tender, soft, no organomegaly, no pulsatile mass Extremities: normal inspection, no calf tenderness, no pedal edema, normal range of motion Neurologic/Psychiatric: alert, normal mood/affect, normal reflexes, oriented x 3 Skin: no rash Lymphatic: no adenopathy Hospital Course 56 y/o M Hx HTN, gout - pt was at his primary MDs office one day prior. Routine labs revealed an elevated glucose and he was instructed to attend the hospital the following day. He admits to some polydipsia and polyuria but was otherwise asymptomatic and did not know he was diabetic. Initial glucose registered at over 700. Labs were also notable for MERCED. New onset DM - no acidosis or ketosis present - pt placed on an insulin drip and initial dose of Lantus provided on admission Now on SSI + lantus 10 units HS and will calculate further lantus dosing based on SSI needs Diabetic teaching and nutrition consult requested Ongoing management will be somewhat limited due to pt's hx of CKD due to renal stones Metformin and newer injectables are not an option due to this Discussed with pt and advised that likely he will be started on lantus A1c is 12.4 and will likely respond better with lantus due to that Daniel discussion about prognosis with pt and the fact that given such sudden onset, he is likely able to reverse his DM with diet, exercise, and weight loss. He states he would like to pursue this angle. Given handouts on Mediterranean diet and had a lengthy discussion about nutrition and exercise changes moving forward. 11/20/16 New onset Type 2 diabetes: Pt was started on long acting insulin and FBG trended downward, however pt requires nutritional insulin to cover his meal as well as correctional insulin scale. We advise pt to inject lantus 10 units sc Hs, as well Novolog 5 units TID with meals, with correctional (sliding scale). Pt was given a hand written correctional scale. Metformin is not option in setting of MERCED on CKD, current creatinine is 1.8 advise to repeat BMP in 2 days. However GLP agonist such as Victoza will be a good option since its also has Cardiovascular benefit as well as weight loss, and no renal dosage adjustment needed. MERCED - with hx of CKD II and varying cr levels aggressive IVF , trend BMP , urine Na and Creat requested Hypertriglyceridemia: cannot calculate LDL Would likely benefit from a statin in the future, but will hold for now given renal function Could also likely benefit from omega 3 fish oil HTN - we have held his diuretic and GENE due to MERCED - will cont Diltiazem and provide Hydralazine as needed Resume as able Gout - Allopurinol held due to MERCED - no current flare. Total Time Spent: Greater than 30 minutes This includes examination of the patient, discharge planning, medication reconciliation, and communication with other providers. Discharge Instructions Please refer to the electronic Patient Visit Report (Discharge Instructions) for additional information. Follow-Up With In 1 week BMP on 11/22/16 to see the trend of creatinine Additional Copies To Alex Sol D.O.
[2016-11-20 11:34] VITALS: BP 147/93; PULSE 65; TEMP 36.6; O2SAT 95
== END 2016-11-20 13:00 | disposition home or self-care (01) | DRG 638 ==
LOC: C.EDB 13:54 → C.4E 16:21 → CANRESERV 16:50 → ENRESERV 16:50
PROVIDERS: ADMIT Internal Medicine; ATTEND Internal Medicine
DX: E11.65 Type 2 diabetes mellitus with hyperglycemia (principal); N17.9 Acute kidney failure, unspecified; N18.2 Chronic kidney disease, stage 2 (mild); E78.1 Pure hyperglyceridemia; I12.9 Hypertensive chronic kidney disease with stage 1 through stage 4 chronic kidney disease, or unspecified chronic kidney disease; M10.9 Gout, unspecified; E66.9 Obesity, unspecified; Z68.37 Body mass index [BMI] 37.0-37.9, adult; Z83.3 Family history of diabetes mellitus; Z80.0 Family history of malignant neoplasm of digestive organs

== ENCOUNTER → 2017-03-15 | Outpatient (CLI) | payer BC ==
[~2017-03-15] MED LIST changes: +DILT120C41 PO; -DILT240C74 PO; +ERGO500011 PO; +HYG/25 PO; +INSDGIPEN SQ; -LISI1TAB3 PO; +NVLGIPEN SC; -OXYC-57 PO; -POTA-327 PO; +POTA10CA28 PO
[2017-03-15 10:12] LABS: BLOOD UREA NITROGEN 18 mg/dl (7-18); CALCIUM 9.3 mg/dl (8.5-10.1); CARBON DIOXIDE 27 mmol/L (21-32); CHLORIDE 109 mmol/L (98-107); CREATININE 1.48 mg/dl (0.60-1.40); GLUCOSE 87 mg/dl (70-99); PHOSPHORUS 2.7 mg/dl (2.5-4.9); POTASSIUM 3.8 mmol/L (3.5-5.1); SODIUM 141 mmol/L (136-145)
== END | disposition home or self-care (01) ==
LOC: C.LAB1850 06:49
PROVIDERS: ATTEND Internal Medicine Nephrology
DX: N20.0 Calculus of kidney (principal); I10 Essential (primary) hypertension; N25.81 Secondary hyperparathyroidism of renal origin; N18.3 Chronic kidney disease, stage 3 (moderate)

== ENCOUNTER → 2017-03-18 | Outpatient (CLI) | payer BC ==
[2017-03-18 09:36] LABS: HEMATOCRIT 50.7 % (42-52); MEAN CELL VOLUME 89.9 fL (80-100); MEAN CORPUSCULAR HEMOGLOBIN 30.3 pg (25-34); MEAN CORPUSCULAR HGB CONC 33.7 g/dl (32-36); MEAN PLATELET VOLUME 10.9 fL (7.4-10.4); PLATELET COUNT 146 K/uL (130-400); RED BLOOD COUNT 5.64 M/uL (4.7-6.1); WHITE BLOOD COUNT 4.57 K/uL (4.8-10.8)
[2017-03-18 09:58] LABS: ALT/SGPT 37 U/L (12-78); AST/SGOT 17 U/L (15-37); BLOOD UREA NITROGEN 18 mg/dl (7-18); BUN/CREATININE RATIO 11.9 (10-20); CALCIUM 9.3 mg/dl (8.5-10.1); CARBON DIOXIDE 27 mmol/L (21-32); CHLORIDE 111 mmol/L (98-107); CREATININE 1.49 mg/dl (0.60-1.40); GLUCOSE 85 mg/dl (70-99); POTASSIUM 3.8 mmol/L (3.5-5.1); SODIUM 143 mmol/L (136-145)
[2017-03-18 10:00] LABS: ALB/GLOB RATIO 1.3 (0.9-2); ALKALINE PHOSPHATASE 80 U/L (45-117); ESTIMATED AVERAGE GLUCOSE 120 mg/dl; HA1C FLAG Normal (Normal)
[2017-03-18 10:14] LABS: RATIO 44.4 mcg/mg (0-30.0)
--- NOTE | 2017-03-31 14:16 | CODING QUERY NO DIAGNOSIS ---
TREATMENT RENDERED WITHOUT A DIAGNOSIS To promote full compliance with coding requirements relating to patient care, physician participation is requested in all cases of back closer uncertainty. Please assist us with providing a diagnosis/symptom for the test(s) below: A diagnosis/symptom was not documented on your Order. A valid diagnosis/symptom is required to bill all insurances. Please remember that we are unable to code a diagnosis of rule out, probable, possible, questionable, or suspected. Tests that require a diagnosis for date of service 03/18/17: * MICROALBUM/CREAT RATION RANDOM DIAGNOSIS: * HEMOGLOBIN A1C DIAGNOSIS: * COMPREHENSIVE METABOLIC PANEL DIAGNOSIS: * CBC W/O DIFF DIAGNOSIS: Provider Signature: Date: Thank you Damari Johnson Health Information Management Once completed, please kindly fax back to [phone] For questions please call [phone]
== END | disposition home or self-care (01) ==
LOC: C.LAB1850 06:51
PROVIDERS: ATTEND Family Medicine
DX: E11.22 Type 2 diabetes mellitus with diabetic chronic kidney disease (principal); N18.9 Chronic kidney disease, unspecified

== ENCOUNTER → 2017-07-30 | Outpatient (CLI) | payer OTHER ==
[2017-07-30 09:50] LABS: HEMATOCRIT 50.5 % (42-52); HEMOGLOBIN 17.2 g/dL (14.0-18.0); MEAN CELL VOLUME 87.7 fL (80-100); MEAN CORPUSCULAR HEMOGLOBIN 29.9 pg (25-34); MEAN CORPUSCULAR HGB CONC 34.1 g/dl (32-36); PLATELET COUNT 147 K/uL (130-400); RED CELL DISTRIBUTION WIDTH CV 13.4 % (11.5-14.5); WHITE BLOOD COUNT 5.86 K/uL (4.8-10.8)
[2017-07-30 10:24] LABS: BLOOD UREA NITROGEN 13 mg/dl (7-18); CALCIUM 9.3 mg/dl (8.5-10.1); CARBON DIOXIDE 29 mmol/L (21-32); GLUCOSE 98 mg/dl (70-99); POTASSIUM 3.5 mmol/L (3.5-5.1); SODIUM 142 mmol/L (136-145)
[2017-07-30 10:25] LABS: PHOSPHORUS 2.9 mg/dl (2.5-4.9)
== END ==
LOC: C.LAB 09:12
PROVIDERS: ATTEND Internal Medicine Nephrology
DX: N20.0 Calculus of kidney (principal); I12.9 Hypertensive chronic kidney disease with stage 1 through stage 4 chronic kidney disease, or unspecified chronic kidney disease; N25.81 Secondary hyperparathyroidism of renal origin; N18.3 Chronic kidney disease, stage 3 (moderate)

== ENCOUNTER 2018-08-23 11:52 | Inpatient (IN) ==
--- OUTSIDE RECORDS SUMMARY | 2018-08-23 11:56 | External Medical Summary | Continuity of Care Document ---
:1960 Author Name Amaris Cole, Provider Address Unavailable Unavailable , Care Team Providers Name Role Phone Gissell Cole, Josesito Melgar Unavailable [email or web address] [email or web address] Unavailable Unavailable Unavailable Unavailable Unavailable Problems Renal Insufficiency (593.9) Ureteral stone (592.1) (N20.1) Hypertension (401.9) (I10) Chronic renal failure, stage 3 (moderate) (585.3) (N18.3) Nephrolithiasis (592.0) (N20.0) Secondary hyperparathyroidism (588.81) (N25.81) Hypokalemia (276.8) (E87.6) Allergies and Adverse Reactions No Known Drug Allergies (Allergy) Medications Potassium Citrate ER 15 MEQ (1620 MG) Or al Tablet Extended Release; TAKE 1 TABLET 3 times daily Douglas Borrero Start: 09-Dec-2017 Quantity: 90 Refills: 5 Chlorthalidone 25 MG Oral Tablet; Take one tablet each morning. Douglas Borrero Start: 01-Aug-2017 Quantity: 30 Refills: 5 Dilt-XR 240 MG Oral Capsule Extended Rel ease 24 Hour; take 1 capsule by mouth once daily Refills: 0 Vitamin D (Ergocalciferol) 99919 UNIT Or al Capsule; take 1 capsule by mouth MONTHLY Douglas Borrero Start: 27-Nov-2014 Quantity: 12 Refills: 0 Procedures History of Renal Lithotripsy Status: Com pleted History of Colon Surgery Status: Complet ed Immunizations Immunizations not documented Family History Unknown Family Member Family history of Colon Cancer (V16.0) Status: Active C omments: Family History Father No pertinent family history (V49.89) (Z78.9) Status: Active Social History - Smoking Status Never smoker Plan of Treatment Planned Encounters Appointment; Josesito Borrero M.D. Start: 28-Aug-2018 15:00 Request Planned Observations Planned Goals not documented Results No Known Results Results not documented Encounters Appointment; Josesito Borrero M.D. 15-Mar-2018 13:45 Encounter Diagnosis: Problem not documented Appointment; Josesito Borrero M.D. 09-Dec-2017 14:15 Encounter Diagnosis: Problem not documented Appointment; Josesito Borrero M.D. 01-Aug-2017 15:15 Encounter Diagnosis: Problem not documented Appointment; Josesito Borrero M.D. 17-Mar-2017 15:30 Encounter Diagnosis: Problem not documented Appointment; Josesito Borrero M.D. 11-Feb-2017 14:45 Encounter Diagnosis: Problem not documented Appointment; Josesito Borrero M.D. 15-Oct-2016 8:45 Encounter Diagnosis: Problem not documented Appointment; Josesito Borrero M.D. 28-Aug-2018 15:00 Encounter Diagnosis: Problem not documented
[2018-08-23 12:57] LABS: Hematocrit (blood only) 49.4 % (42-52); Hemoglobin 17.3 g/dL (14.0-18.0); Mean Corpuscular Volume 86.8 fL (80-100); Mean Platelet Volume 10.5 fL (7.4-10.4); Platelet Count 155 K/uL (130-400); RDW Coefficient of Variation 13.2 % (11.5-14.5); RDW Standard Deviation 41.6 fL (36.4-46.3); Red Blood Count 5.69 M/uL (4.7-6.1); White Blood Count 8.83 K/uL (4.8-10.8)
--- NOTE | 2018-08-23 13:04 | XRay Report ---
XR chest 1V portable CLINICAL HISTORY: CHEST HEAVINESS dyspnea COMPARISON STUDY: 03/05/2015 FINDINGS: The bones soft tissues and hemidiaphragms are normal. The cardiomediastinal silhouette is n ormal. The lungs are clear. The pulmonary vasculature is normal. IMPRESSION: Negative chest. The above report was generated using voice recognition software. It may contain grammatical, syntax or spelling errors. Electronically signed by: Mendez Vallejo M.D. 08/23/2018 1:02 PM
[2018-08-23 13:05] LABS: Calcium 9.1 mg/dl (8.5-10.1); Creatinine Clr Calc Pharmacy 39.3 ml/min; Est GFR (African American) 41.2; Est GFR (Non-African American) 35.6; Potassium 2.9 mmol/L (3.5-5.1)
--- NOTE | 2018-08-23 13:21 | Emergency Department Note ---
History of Present Illness General Chief complaint: Cardiac Assessment Time Seen by Provider: 08/23/18 12:31 History of Present Illness Patient is a 57-year-old male with past medical history significant for hyper tension who was referred to the emergency department from his primary care provider's office for evaluation of chest discomfort and apparent EKG changes. Patient reports that yesterday around 1:00 in the afternoon, he began to feel like his heart was beating irregularly and heavy, and he had a funny sensation in his chest. He denies that it was frankly painful, but states that it was heaviness. It was fairly persistent for about an hour while he was seated in the meeting. There is no associated shortness of breath, dizziness, lightheadedness sweats or nausea. No heartburn or indigestion. He states that it went away slightly, but remained persistent throughout the entire evening, kept him from sleeping overnight, and was still persistent when he woke up this morning. He went to the [facility] and saw Dr. Sol. He had an EKG performed and was referred to the emergency department. He is still symptomatic, stating that he still has some pressure heaviness in his chest and that his "heartbeat is heavy." He did not take any medication or perform any interventions for his symptoms. He says his pain is a 0/10. He has a history of hypertension, but has been out of his diltiazem for about 1 to 2 months, has been taking chlorthalidone. He was admitted for hyperglycemia and diagnosed with diabetes in November 2016, but states that he was able to turn this around with dietary changes, and is no longer on any insulin or oral glycemic agents. He has never had pain similar to this previously. He has never undergone a cardiac work-up. He reports that he exercises 3 times a week at a gym, and works out with a assistive technology trainer. He has lost 30 pounds in the last year. He does not get any pain with exertion. There is no family history of heart diseas e or early [place]. Home Medications Home Medications Medication Instructions Recorded Confirmed Type diltiazem HCl [DILT-XR] 240 mg PO DAILY 08/23/18 08/23/18 History Allergies Allergy/AdvReac Type Severity Reaction Status Date / Time No Known Allergies Allergy Mild Unverified 08/23/18 12:51 Past Med/Surg History Medical History Colon cancer (Resolved) Diabetes mellitus type 2, diet-controlled (Chronic) Gout (Chronic) Chronic kidney disease (Chronic) Dyslipidemia (Chronic) Kidney stones (Chronic) Hypertension (Chronic) Hyperglycemia (Resolved) Surgical History H/O total colectomy (Resolved) History of lithotripsy (Resolved) Social History Preferred Language: Pashto [employer] Required: No Beliefs That Will Affect Care: None Current Living Situation: Alone current occupational status: employed Other Information That Helps Us Care for You: No Feels Safe at Home: No Is there a partner from a previous relationship who is making you feel unsafe now?: No Any Concerns about Your Family Situation: No Would You Like to Speak to Someone About Your Situation: No Safety Concerns: Feels Safe At This Time Smoking Status: Never smoker Review of Systems A total of 10 systems reviewed and were otherwise negative Physical Exam Vital Signs Vital Signs - 24 hr 08/23/18 11:59 08/23/18 13:35 08/23/18 14:59 Temperature 36.6 C Temperature Source Oral Sepsis Recent Fever Within 48 Hours No Sepsis New/Unexplained Change in Mental Status No Sepsis Action Taken by Nursing No Action Required Pulse Rate 88 Pulse Rate [Apical] 78 82 Respiratory Rate 20 16 16 Blood Pressure 160/99 H Blood Pressure [Right Arm] 146/98 H 139/84 Blood Pressure Mean 119 Blood Pressure Mean [Right Arm] 114 102 Pulse Oximetry 96 Oxygen Delivery Method Room Air CONSTITUTIONAL: Patient is a pleasant, well-appearing 57-year-old male who is awake and alert and in no acute distress. EYES: Pupils equal, round, reactive to light and accommodation. EOMs intact without nystagmus. Sclera are anicteric. ENT: Tympanic membranes intact, with normal landmarks. External canals are clear. Oral and nasopharynx are clear. Mucous membranes are moist, no lesions, tongue and gums appear normal. NECK: No bruits auscultated. Supple without lymphadenopathy. No thyromegaly. No meningeal signs. Full active range of motion without discomfort. CARDIOVASCULAR: Regular rate and rhythm, with normal S1 and S2, no murmur or gallop or rub is heard. No carotid bruits auscultated. No JVD. Peripheral pulses easy to palpable. RESPIRATORY: Breath sounds equal and clear to auscultation without wheezes, rales, or rhonchi heard. Full and equal chest expansion without accessory muscle use or retractions. GI: Bowel sounds are present. Abdomen is soft, nontender, nondistended. No organomegaly. No pulsatile masses. No guarding or rebound. MUSCULOSKELETAL: Full range of motion of extremities x 4 with good strength. No cyanosis, edema, joint tenderness or swelling. No deformity. INTEGUMENTARY: No lesions or rash, normal skin turgor. NEUROLOGICAL: Alert, oriented, and cooperative. Cranial nerves, sensation and strength grossly intact. Pupils round, equal, and react to light, EOMs are full. LYMPH: No lymphadenopathy. Course The patient was seen and assessed as above. Old records were reviewed. EKG from his primary care provider's office which accompany him were also reviewed. Repeat EKG was performed here in the emergency department noted sinus rhythm with first-degree AV block, DE interval 230 ms. Nonspecific T wave abnormality, with flattened T waves in the lateral leads, but no corby T wave inversions, no ST segment elevation. The patient was placed on a surveillance system monitor. IV access was obtained. Chest x-ray was performed. CBC with differential, BMP, CK, CK-MB and troponin were collected. I was contacted by nursing staff that the patient's troponin came back significantly elevated at 79. Patient was immediately reviewed with Dr. yao. EKG and laboratory studies were discussed with her. Cardiology consultation was placed with Dr. Aquino, who recommended aspirin, and heparinization, and nitroglycerin to see if the patient's symptoms could be completely resolved. He also ordered a bedside transthoracic echo, with plans to assess the patient in the emergency department. The patient's chest x-ray was reviewed and was unremarkable. Laboratory studies noted a white count of 8800, H&H is 17 and 49, platelet count 155,000. Coags are normal. He is hypokalemic with a potassium of 2.9. Slight elevation of his creatinine from baseline at 2.03. He does have an element of chronic kidney disease, baseline creatinine tends to run around 1.5. His total CK was also elevated at 1363 CK-MB 101.2. The patient was reviewed with the [facility], Dr. Pimentel for admission. Dr. Aquino presented to the emergency department and assessed the patient. He asked that the patient be given additional sublingual nitroglycerin and Nitropaste be placed. These orders were placed by Dr. Yao. As the patient continued to have persistent symptoms despite nitroglycerin, ultimately the decision was made by Dr. Aquino to take him to the [facility]. Please refer to his cardiology consultation for further information. After the [facility], he was admitted to the medical service for further care and management. The patient remained stable while in the emergency department. Administered Medications Atorvastatin Calcium (Lipitor) 80 mg PO QAM JANETH Stop: 09/22/18 15:59 Last Admin: 08/23/18 18:56 Dose: 80 mg Documented by: [id number] Potassium Chloride/Sodium Chloride (Normal Saline W/20 Meq Kcl) 20 meq in 1,000 mls @ 100 mls/hr IV .Q10H JANETH Stop: 09/22/18 16:29 Last Admin: 08/23/18 17:00 Dose: 100 mls/hr Documented by: [id number] Insulin Aspart (Novolog Flexpen) 0 units SC ACHS JANETH Stop: 09/22/18 16:29 Last Admin: 08/23/18 18:57 Dose: Not Given Documented by: [id number] Cosigned by: [id number] Discontinued Medications Aspirin (Aspirin Chew) 324 mg PO NOW STA Stop: 08/23/18 13:47 Last Admin: 08/23/18 13:57 Dose: 324 mg Documented by: [id number] Fentanyl Citrate (Fentanyl Citrate) Confirm Administered Dose 100 mcg .ROUTE .STK-MED ONE Stop: 08/23/18 16:13 Last Increment: 08/23/18 16:59 Dose: 50 mcg Documented by: [id number] Heparin Sodium (Porcine) (Heparin Iv Bolus) Confirm Administered Dose 10,000 units .ROUTE .STK-MED ONE Stop: 08/23/18 14:57 Last Admin: 08/23/18 15:01 Dose: 4,000 units Documented by: [id number] Cosigned by: [id number] Heparin Sodium/Dextrose () 1 ea IV NOW STA Stop: 08/23/18 13:58 Last Admin: 08/23/18 15:03 Dose: Not Given Documented by: [id number] Heparin Sodium/Dextrose (Heparin Sodium/Dextrose) Confirm Administered Dose 25,000 units IV .STK-MED ONE Stop: 08/23/18 14:57 Last Admin: 08/23/18 15:02 Dose: 850 units Documented by: [id number] Cosigned by: [id number] Heparin Sodium/Dextrose () 1 ea IV Q15M JANETH; Protocol Stop: 08/23/18 17:12 Last Admin: 08/23/18 19:19 Dose: Not Given Documented by: [id number] Admin: 08/23/18 19:19 Dose: Not Given Documented by: [id number] Heparin Sodium/Sodium Chloride (Heparin/Nss 1000 Unit/500ml Flush Bag) Confirm Administered Dose 3,000 units IV .STK-MED ONE Stop: 08/23/18 16:12 Last Admin: 08/23/18 16:50 Dose: 3,000 units Documented by: [id number] Sodium Chloride (Nss 1000ml) 1,000 mls @ 999 mls/hr IV .Q1H1M [facility] Stop: 08/23/18 14:48 Last Infusion: 08/23/18 15:01 Dose: 0 mls/hr Documented by: [id number] Admin: 08/23/18 13:57 Dose: 999 mls/hr Documented by: [id number] Potassium Chloride (K Peter / Wtr) 10 meq in 100 mls @ 100 mls/hr IV Q1H [facility] Stop: 08/23/18 16:44 Last Admin: 08/23/18 18:51 Dose: Not Given Documented by: [id number] Infusion: 08/23/18 18:47 Dose: 0 mls/hr Documented by: [id number] Admin: 08/23/18 15:28 Dose: 100 mls/hr Documented by: [id number] Midazolam HCl (Versed) Confirm Administered Dose 2 mg .ROUTE .STK-MED ONE Stop: 08/23/18 16:13 Last Admin: 08/23/18 16:59 Dose: 2 mg Documented by: [id number] Midazolam HCl (Versed) Confirm Administered Dose 2 mg .ROUTE .STK-MED ONE Stop: 08/23/18 16:45 Last Increment: 08/23/18 17:00 Dose: 1 mg Documented by: [id number] Nicardipine HCl (Cardene) Confirm Administered Dose 25 mg .ROUTE .STK-MED ONE Stop: 08/23/18 16:12 Last Admin: 08/23/18 16:50 Dose: 25 mg Documented by: [id number] Nitroglycerin (Nitrostat) 0.4 mg SL NOW STA Stop: 08/23/18 13:47 Last Admin: 08/23/18 13:57 Dose: 0.4 mg Documented by: [id number] Nitroglycerin (Nitro-Bid 2%) 1 inch EXT NOW STA Stop: 08/23/18 14:57 Last Admin: 08/23/18 15:28 Dose: 1 inch Documented by: [id number] Nitroglycerin/Dextrose (Nitroglycerin/D5w 100 Mcg/Ml 20ml Syringe) Confirm Administered Dose 2,000 mcg .ROUTE .STK-MED ONE Stop: 08/23/18 16:13 Last Admin: 08/23/18 16:51 Dose: 2,000 mcg Documented by: [id number] Ticagrelor (Brilinta) 180 mg PO ONE ONE Stop: 08/23/18 16:20 Last Admin: 08/23/18 16:51 Dose: 180 mg Documented by: [id number] Ticagrelor (Brilinta) Confirm Administered Dose 180 mg PO .STK-MED ONE Stop: 08/23/18 16:37 Last Admin: 08/23/18 18:58 Dose: 180 mg Documented by: [id number] Medical Decision Making Differential Diagnosis Differential diagnosis includes acute myocardial infarction, acute coronary syndrome, myocarditis, pericarditis, pericardial effusions/tamponade, esophageal perforation, pulmonary embolism, pneumonia, pneumothorax, cardiomyopathy, congestive heart failure, anemia, COPD/asthma exacerbation, musculoskeletal, anxiety, costochondritis, among others. Medical Records Attestation: I reviewed the patient's medical records. Home Medications Current Medication List: was personally reviewed by me Laboratory Data Attestation: I reviewed the patient's lab results. Result diagrams: 08/23/18 12:11 08/23/18 12:11 Lab Results 08/23/18 08/23/18 08/23/18 Range/Units 12:11 12:11 12:11 WBC 8.83 (4.8-10.8) K/uL RBC 5.69 (4.7-6.1) M/uL Hgb 17.3 (14.0-18.0) g/dL Hct 49.4 (42-52) % MCV 86.8 (80-100) fL MCH 30.4 (25-34) pg MCHC 35.0 (32-36) g/dL RDW Std Deviation 41.6 (36.4-46.3) fL RDW Coeff of Karla 13.2 (11.5-14.5) % Plt Count 155 (130-400) K/uL MPV 10.5 H (7.4-10.4) fL PT 10.3 (9.0-12.0) Seconds INR 1.0 (0.9-1.1) APTT 26.2 (21.0-31.0) Seconds PTT Ratio 1.0 Sodium 138 (136-145) mmol/L Potassium 2.9 L (3.5-5.1) mmol/L Chloride 103 (98-107) mmol/L Carbon Dioxide 27 (21-32) mmol/L Anion Gap 8.0 (3-11) BUN 33 H (7-18) mg/dl Creatinine 2.03 H (0.6-1.4) mg/dl Est Cr Clr Drug Dosing 39.3 ml/min Est GFR ( Amer) 41.2 Est GFR (Non-Af Amer) 35.6 BUN/Creatinine Ratio 16.0 (10-20) Glucose 97 (70-99) mg/dl Calcium 9.1 (8.5-10.1) mg/dl Total Creatine Kinase 1363 H (39-308) U/L CK-MB (CK-2) 101.2 H (0.5-3.6) ng/ml CK/CKMB % Calc 7.4 H (0-3.0) Troponin I 79.000 H* (0-0.045) ng/ml Imaging Data Attestation: I personally reviewed and interpreted this imaging study as follows: Radiologist's Impression: XR chest 1V portable CLINICAL HISTORY: CHEST HEAVINESS dyspnea COMPARISON STUDY: 03/05/2015 FINDINGS: The bones soft tissues and hemidiaphragms are normal. The cardiomediastinal silhouette is normal. The lungs are clear. The pulmonary vasculature is normal. IMPRESSION: Negative chest. ECG Data Attestation: I personally reviewed and interpreted this ECG as follows: Indication: chest pain Rate (beats per minute): 76 Rhythm: normal sinus Findings: + other (Nonspecific T wave abnormality in the lateral leads.) and + 1st degree AV block; no acute ischemic change Comparison ECG Date: from (05/18/2016) Change: no significant change Blood Pressure Blood Pressure Findings: Elevated blood pressure Blood Pressure Disposition: further management by hospitalist MDM Narrative See ED course. Impression & Plan Non-ST elevated myocardial infarction (non-STEMI) Critical Care Time I have personally spent greater than 30 minutes of critical care time in the direct management of this patient. This includes bedside care, interpretation of diagnostic studies, and testing, discussion with consultants, patient, and family members, and other required patient management activities. This 30 mi nutes is in excess of all separately billable procedures. Critical Care Time: Yes Total Critical Care Time: 35 Discharge Plan Visit Data *Final* Discharge Date/Time: 08/23/18 16:22 Chief Complaint: Cardiac Assessment ED Provider: Lori Yao ED Midlevel Provider: Siri Benjamin Discharge Problem: Non-ST elevated myocardial infarction (non-STEMI) Patient Disposition: Admitted As Inpatient Discharge Instructions Interventions: ED Discharge Assessment Last Done: 08/23/18 16:22
[2018-08-23 13:33] LABS: Creatine Kinase MB 101.2 ng/ml (0.5-3.6)
[2018-08-23] MEDS ORDERED: ASPIRIN 81 MG CHEW PO STA (13:46)
[2018-08-23] MEDS ORDERED: NITROGLYCERIN SL 0.4 MG/TAB TAB SL STA (13:46)
[2018-08-23] MEDS ORDERED: SODIUM CHLORIDE 0.9% 1000ML 1,000 ML IV SCH ×2 (13:48→15:00)
[2018-08-23] MEDS ORDERED: Heparin IV Low Dose WITH Bolus IV STA (13:57)
[2018-08-23 14:13] LABS: Partial Thromboplastin Time 26.2 Seconds (21.0-31.0); Prothrombin Time 10.3 Seconds (9.0-12.0)
[2018-08-23] MEDS ORDERED: HEPARIN SOD (PORCINE) 1000 UNIT/ML 10 ML VIAL ONE (14:56)
[2018-08-23] MEDS ORDERED: HEPARIN 25000 UNIT/500 ML D5W IV ONE (14:56)
[2018-08-23] MEDS ORDERED: NITROGLYCERIN 2% OINTMENT 30GM TUBE EXT STA (14:56)
[2018-08-23] MEDS ORDERED: ALUMINUM/MAGNESIUM SUSP 30 ML UDC PO PRN (15:06)
[2018-08-23] MEDS ORDERED: DEXTROSE 50% 50 ML SYRINGE IV PRN (15:06)
[2018-08-23] MEDS ORDERED: GLUCOSE 10 TABS/TUBE PO PRN (15:06)
[2018-08-23] MEDS ORDERED: POLYETHYLENE (MIRALAX) 17 GM PACK PO PRN (15:06)
[2018-08-23] MEDS ORDERED: MoRPHine SULFATE 2 MG/ML CARP IV PRN (15:06)
[2018-08-23] MEDS ORDERED: ACETAMINOPHEN 325 MG TAB PO PRN (15:06)
[2018-08-23] MEDS ORDERED: MAGNESIUM HYDROXIDE SUSP 30 ML UDC PO PRN (15:06)
[2018-08-23] MEDS ORDERED: ONDANSETRON INJ 2 MG/ML 2 ML VIAL IV PRN (15:06)
[2018-08-23] MEDS ORDERED: GLUCOSE 40% GEL 15 GM TUBE PO PRN (15:06)
[2018-08-23] MEDS ORDERED: GLUCAGON FOR INJ 1 MG VIAL SQ PRN (15:06)
[2018-08-23] MEDS ORDERED: CARBOHYDRATES FOR HYPOGLYCEMIA PO PRN (15:06)
[2018-08-23] MEDS ORDERED: NITROGLYCERIN SL 0.4 MG/TAB TAB SL PRN (15:06)
[2018-08-23] MEDS: POTASSIUM CHLORIDE / WTR 10 MEQ/100 ML PLCT IV SCH ×2 (15:28→18:51)
[2018-08-23] MEDS ORDERED: HydrALAZINE HCL 20 MG/ML VIAL IV PRN (16:06)
--- NOTE | 2018-08-23 16:07 | History & Physical Report ---
Date of Service August 23, 2018 Assessment & Plan (1) NSTEMI (non-ST elevated myocardial infarction): 57 yo M with pMHx HTN, HLD, diet controlled DM, and colon cancer s/p total colectomy in 2009 referred to ED by PCP for CP and t wave inversion on EKG, and admitted with NSTEMI and elevated troponin 79.0 NSTEMI Cardiology consulted in ED, recs appreciated. - Monitor in telemetry - Serial troponin q6h - Check A1c and fasting lipids - Initiate mx: aspirin, atorvastatin, metoprolol, Brillinta, heparin drip. Lisinopril not initiated in view of creatinine - Formal echo not ordered at present, as beside echo was performed by Dr. Aquino in ED - Nitro SL, nitro paste, IV morphine and EKG PRN chest pain - For cardiac catheterization Elevated serum creatinine on bkgd of CKD III Follows Dr. Borrero as outpatient. Baseline creatinine ~1.5, admission creatinine 2.03 - IVF NSS with KCl 20mEq @ 100cc/hr - Hold/avoid nephrotoxic meds - Check BMP in AM Hypokalemia Possibly related to chlorthalidone use vs chronic GI loss 2/2 colectomy with intermittent diarrheal episodes - Check magnesium level now - Replete (2 K riders in ED + IVF with KCl overnight) and check BMP in AM HTN - Stop home meds chlorthalidone 25mg daily (possible cause of increased creatinine) and diltiazem XR 240mg daily - Metoprolol 12.5mg ordered BID - will consider titration in AM if vitals remain adequate. - PRN IV hydralazine if BP >165/100mmHg for now, hold for HR <60mmHg HLD Nov 2017: chol 178, LDL 114, HDL 44, TG 101 - Will initiate high dose atorvastatin 80mg tonight - Will check fasting lipids in AM DMII, diet controlled Jan 2018: A1c 5.2, not on medications, very active with recent intentional 20lb weight loss over last year - Will check A1c - BSG ac/hs with ISS while in hospital VTE ppx - currently anticoagulated as above Status: FULL CODE (2) Elevated serum creatinine: (3) Hypokalemia: (4) Chronic kidney disease: (5) Hypertension: (6) Dyslipidemia: (7) Diabetes mellitus type 2, diet-controlled: History of Present Illness Chief Complaint: Chest heaviness Primary Care Provider: Alex Sol, DO 57 yo M with pMHx HTN, HLD, diet controlled DM, and colon cancer s/p total colectomy in 2009 referred to ED by PCP for CP and t wave inversion on EKG, and found to have elevated troponin 79.0 Patient notes he was at a meeting at work yesterday at 1pm when the pain started. Describes the pain as a heaviness and thumping (NOT pain) in the sternal region without radiation into the neck, jaw or back. He denies associated dyspnea, nausea, diaphoresis, dizziness, headache, but rates the intolerability as 8/10. Symptoms subsided to 3-4/10, but did not resolve in ~1hour. As they did not match symptoms of UT as googled, patient did not act on symptoms - he denies any acute (or chronic) OTC analgesic use. Patient tolerated dinner, and did not note exacerbation of symptoms with position or ambulation, but notes poor sleep due to persistent chest discomfort. At baseline, patient is very active and frequents the gym 3x/week, and has never had similar symptoms. He denies syncope or presyncopal episodes, PND, orthopnea, history of GERD, or decrease in exercise tolerance. In fact, he has been exerciseing/doing more and has had intentional weight loss of 20lb over the last year. Of note, patient is only on 2 antihypertensives meds, chlorthalidone and diltiazem - he had run out of the diltiazem and was only taking the chlorthalidone over the last month. Up until yesterday, patient has been in good health and denies recent URI sx, reports good water intake, denies constitutional symptoms, abdominal pain, urinary symptoms, or changes in skin/rashes. In the ED, the patient received ASA 325mg, NG x 2 (which completely resolved cardiac symptoms), IVF NSS 1L, K rider x 2. Cardiology was consulted and performed bedside echo. PMHx: HTN, diet controlled DM, CKDIII, HLD, PSHx: Total colectomy 2009, multiple lithotripsy for kidney stones, hernia repair FHx: HTN and colon cancer in mom, and renal cancer in dad. He denies FHx of UT/CVA. SHx: Lives alone. No kids. Never smoker. Rare EtOH use. No recreational drug use. Allergies Allergy/AdvReac Type Severity Reaction Status Date / Time No Known Allergies Allergy Mild Unverified 08/23/18 12:51 Home Medications Home Medications Medication Instructions Recorded Confirmed Type diltiazem HCl [DILT-XR] 240 mg PO DAILY 08/23/18 08/23/18 History Past Med/Surg History Medical History Colon cancer (Resolved) Diabetes mellitus type 2, diet-controlled (Chronic) Gout (Chronic) Chronic kidney disease (Chronic) Dyslipidemia (Chronic) Kidney stones (Chronic) Hypertension (Chronic) Hyperglycemia (Resolved) Surgical History H/O total colectomy (Resolved) History of lithotripsy (Resolved) Social History Preferred Language: Greenlandic 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 Required: No Beliefs That Will Affect Care: None Current Living Situation: Alone current occupational status: employed Other Information That Helps Us Care for You: No Feels Safe at Home: No Is there a partner from a previous relationship who is making you feel unsafe now?: No Any Concerns about Your Family Situation: No Would You Like to Speak to Someone About Your Situation: No Safety Concerns: Feels Safe At This Time Smoking Status: Never smoker Review of Systems Review of Systems: All systems reviewed & are unremarkable except as noted in HPI & below Physical Exam Constitutional: WD/WN, vitals as above average body habitus; no acute distress and not ill appearing Eyes: no conjunctival abnormality and no scleral abnormality ENMT: external ear and nose normal, oropharynx normal Neck: trachea midline, no thyromegaly Respiratory: normal respiratory effort, lungs clear to auscultation no cough Auscultation: no crackles and no wheezes Cardiovascular: RRR, no murmur, no edema Heart Sounds: normal S1 and normal S2; no murmur Vessels: normal peripheral pulses; no JVD and no carotid bruit Extremities: normal capillary refill; no calf tenderness, no edema and no varicosities Chest (Breasts): Chest: normal inspection of chest Gastrointestinal (Abdomen): normal bowel sounds, soft, nontender, no hepatosplenomegaly Percussion/Palpation: no guarding and abdomen not rigid Musculoskeletal: Head/Neck/Chest: normocephalic, head atraumatic and neck supple Extremities: extremities normal to inspection Skin: no rashes, warm and dry Neurologic: normal touch/pain/proprioception, CN's II-XI intact bilaterally and moves all extremities; no focal motor deficits Psychiatric: A+Ox3, euthymic affect Insight: good insight Lymphatic: no cervical lymphadenopathy Results & Data Vital Signs (Past 12 Hours) Vital Signs Temp Pulse Pulse Resp BP BP Pulse Ox 08/23/18 14:59 82 16 139/84 08/23/18 13:35 78 16 146/98 H 08/23/18 11:59 36.6 C 88 20 160/99 H 96 Laboratory Results Laboratory Results - last 24 hr 08/23/18 08/23/18 08/23/18 12:11 12:11 12:11 WBC 8.83 RBC 5.69 Hgb 17.3 Hct 49.4 MCV 86.8 MCH 30.4 MCHC 35.0 RDW Std Deviation 41.6 RDW Coeff of Karla 13.2 Plt Count 155 MPV 10.5 H PT 10.3 INR 1.0 APTT 26.2 PTT Ratio 1.0 Sodium 138 Potassium 2.9 L Chloride 103 Carbon Dioxide 27 Anion Gap 8.0 BUN 33 H Creatinine 2.03 H Est Cr Clr Drug Dosing 39.3 Est GFR ( Amer) 41.2 Est GFR (Non-Af Amer) 35.6 BUN/Creatinine Ratio 16.0 Glucose 97 Calcium 9.1 Magnesium Total Creatine Kinase 1363 H CK-MB (CK-2) 101.2 H CK/CKMB % Calc 7.4 H Troponin I 79.000 H* 08/23/18 15:27 WBC RBC Hgb Hct MCV MCH MCHC RDW Std Deviation RDW Coeff of Karla Plt Count MPV PT INR APTT PTT Ratio Sodium Potassium Chloride Carbon Dioxide Anion Gap BUN Creatinine Est Cr Clr Drug Dosing Est GFR ( Amer) Est GFR (Non-Af Amer) BUN/Creatinine Ratio Glucose Calcium Magnesium 1.8 Total Creatine Kinase CK-MB (CK-2) CK/CKMB % Calc Troponin I 61.600 H* Code Status & VTE Plan Code Status FULL CODE VTE Prophylaxis Plan VTE Prophylaxis will be ordered: Yes Supervising Physician Co-Signing Physician Notes I personally examined the patient and verified all villarreal points of history and exam, discussed case, and agree with decision making with Dr Leos. Patient seen post cath, feeling good no chest pressure. Cath noted. Vitals noted, in general he is awake and alert pleasant no distress. HEENT normocephalic atraumatic mucous membranes moist. Breathing is unlabored no accessory muscle use good effort. Skin shows no rashes no pallor or icterus. MIappears to have had a non-ST elevation UT probably yesterday when he was feeling his chest pressure. Fortunately does not appear to have ongoing damage. Post-cath. Med management, secondary risk reduction. Resident Activity Tracking Resident Involvement: Resident Care Provided Care Provided: Adult Hospital Medicine
[2018-08-23] MEDS ORDERED: NiCARDipine HCL INJ 2.5 MG/ML 10 ML AMP ONE (16:11)
[2018-08-23] MEDS ORDERED: MIDAZOLAM HCL 1 MG/ML 2ML VIAL ONE ×2 (16:12→16:44)
[2018-08-23] MEDS ORDERED: NITROGLYCERIN/D5W 100MCG/ML 20ML SYR ONE (16:12)
[2018-08-23] MEDS ORDERED: fentaNYL citrate 100 MCG/2 ML VIAL ONE (16:12)
[2018-08-23 16:13] LABS: Magnesium 1.8 mg/dl (1.8-2.4); Troponin I 61.6 ng/ml (0-0.045)
--- NOTE | 2018-08-23 16:14 | Pre Anesthesia Assessment ---
Date of Service August 23, 2018 Pre Sedation Assessment Vital Signs Temp Pulse Pulse Resp BP BP Pulse Ox 08/23/18 14:59 82 16 139/84 08/23/18 13:35 78 16 146/98 H 08/23/18 11:59 36.6 C 88 20 160/99 H 96 Cardiovascular RRR, no murmur, no edema Respiratory normal respiratory effort, lungs clear to auscultation Pre-Sedation Airway Assessment Smoking Status: Never smoker Mallampati Class: III ASA: ASA3 NPO Status Date of Last Intake of Fluids: 08/23/18 Time of Last Intake of Fluids: 08:00 Date of Last Intake of Solid Food: 08/23/18 Time of Last Intake of Solid Foods: 08:00 Procedure Planning Contraindications for Sedation: none Current Medications Reviewed: Yes Notes The planned sedation has been discussed with the patient. Informed Consent was obtained. I have identified the patient, determined the appropriateness of sedation and have assessed the patient immediately prior to the procedure. All medicine(s) and interventions are by my order.
[2018-08-23] MEDS ORDERED: TICAGRELOR 90 MG TAB PO ONE (16:19)
--- NOTE | 2018-08-23 16:21 | Cardiology Consultation ---
Date of Consultation August 23, 2018 Assessment & Plan (1) NSTEMI (non-ST elevated myocardial infarction): Presented with significantly elevated troponin with wall motion abnormalities suggesting circumflex territory. He was having ongoing symptoms that were improving with nitroglycerin. Given ongoing symptoms, significantly elevated troponin, and risk factors for coronary artery disease and wall motion abnormalities on echo, the decision was made to take him to the cardiac catheterization lab on more of an urgent basis for concern of an occluded circumflex or branch vessel. Risks and benefits were discussed with him in detail. He was made aware that CT surgery is not available at this facility. He was agreeable to undergo cardiac catheterization. Recommended aspirin 325 mg, Brilinta 180 mg x1, high-intensity statin therapy, oral beta-yonatan therapy, nitroglycerin paste, and high-intensity statin therapy. (2) Chronic kidney disease: Given chronic kidney disease with evidence of acute worsening since last labs a few months ago, recommend normal saline 150 mL for 5 hours following cardiac catheterization. Fluids were also recommended in the emergency department in anticipation of coronary angiography. Will try to conserve co ntrast. He was made aware of increased risk of worsening renal function, including the potential need for dialysis if significant injury. Monitor renal function. Replete electrolytes as appropriate. Chlorthalidone has been placed on hold by admitting service. (3) Left ventricular hypertrophy: Severe left ventricular hypertrophy on echo. Aggressive blood pressure control recommended. If renal function improves to his baseline, consider GENE- inhibitor given LVH and NY. (4) Angina at rest: Coronary angiography as above. Optimize medical therapy as above. (5) Hypertension: Blood pressure elevated in the ER. Diltiazem can be replaced by beta- yonatna therapy. Consider GENE-inhibitor given NY, LVH, and hypertension, if renal function allows. Chlorthalidone being held by primary service given worsening renal function. Disposition: Cardiology will continue to follow. Highly complex medical issues. Plan of care communicated with primary hospitalist service, Dr. Leos and Dr. Ennis. Patient care also discussed with Dr. Tucker of the emergency department. Thank you for allowing me to participate in the care of your patient. Please call for any other questions or concerns. Sincerely, Herminio Aquino M.D. History of Present Illness Reason for Consultation: NSTEMI Requesting Physician: Dr. Tucker Attending Physician: Mark Ennis, DO History of Present Illness Mr. Castro is a very pleasant 57-year-old gentleman with a history significant for chronic kidney disease followed by Dr. Borrero, hypertension, and diet- controlled type 2 diabetes. He was referred to the emergency department from his PCPs office, Dr. Sol, due to chest pain. Yesterday at approximately 1:00 p.m. while walking at work to a meeting he developed substernal chest tightness that did not radiate. There is no associated shortness of breath, diaphoresis, or other associated symptom. This lasted for approximately 1 hour before resolving but then he had a residual sensation in his substernal area that he describes as a pounding sensation or as though his heart is working harder. He states that he never had pain but rather tightness and then this pounding/working hard sensation. This sensation has persisted since yesterday afternoon. When he arrived to the ER, he had an ECG, which demonstrated sinus rhythm with first-degree AV block and inferolateral T- wave abnormality. ECG was then repeated and demonstrated inferolateral T-wave inversion. He continued to have this sensation when I arrived at the bedside. Nitroglycerin 0.4 mg was requested and it improved his Symptoms, but they persisted. further nitroglycerin and nitroglycerin paste was requested. Metoprolol p.o. was requested. Aspirin and heparin was requested. He denied any further tightness. He denies shortness of breath, syncope, near- syncope, palpitations, edema, bleeding, such as melena, hematochezia, hematuria. He has not had any recent fever, chill, diarrhea, abdominal pain, nausea, vomiting, or other symptoms. He admits that he has not had any anginal symptoms prior to yesterday. Review of systems: As above. Review of systems otherwise negative/unremarkable. Social history: Denies tobacco or drug abuse. Rare alcohol. He lives alone. He has not been . No children. His next of kin is a cousin. He has no siblings. Both parents have . He works at [employer]. He is unaccompanied. Family history: No known premature CAD. There is a family history of cancer. Allergies Allergy/AdvReac Type Severity Reaction Status Date / Time No Known Allergies Allergy Mild Unverified 08/23/18 12:51 Home Medications Home Medications Medication Instructions Recorded Confirmed Type diltiazem HCl [DILT-XR] 240 mg PO DAILY 08/23/18 08/23/18 History Patient History Medical History Colon cancer (Resolved) Diabetes mellitus type 2, diet-controlled Gout (Chronic) Chronic kidney disease (Chronic) Dyslipidemia (Chronic) Kidney stones (Chronic) Hypertension (Chronic) Hyperglycemia (Resolved) Surgical History H/O total colectomy History of lithotripsy (Resolved) Social History Current Living Situation: Alone current occupational status: employed Feels Safe at Home: Yes Smoking Status: Never smoker Physical Exam Physical Exam: Gen.: No acute distress. Alert and oriented. HEENT: Anicteric sclera. Neck: No JVD. No bruits. Normal carotid upstrokes bilaterally. Cardiac: PMI was nondisplaced. No ventricular heave. Regular rate and rhythm. Normal S1-S2. No murmurs, rubs, or gallops. Pulmonary: Clear to auscultation bilaterally without wheezes, rales, or rhonchi. Abdomen: Soft, nontender, nondistended, with normoactive bowel sounds. No bruits noted. Extremities: 2+ radial pulses bilaterally. 2+ posterior tibialis pulses bilaterally. No edema or cyanosis. No palpable cords. Psychiatric: Affect appears appropriate. Chest: Nontender. Results & Data Vital Signs (Past 12 Hours) Vital Signs Temp Pulse Pulse Resp BP BP Pulse Ox 08/23/18 14:59 82 16 139/84 08/23/18 13:35 78 16 146/98 H 08/23/18 11:59 36.6 C 88 20 160/99 H 96 Laboratory Results Laboratory Results - last 24 hr 08/23/18 08/23/18 08/23/18 12:11 12:11 12:11 WBC 8.83 RBC 5.69 Hgb 17.3 Hct 49.4 MCV 86.8 MCH 30.4 MCHC 35.0 RDW Std Deviation 41.6 RDW Coeff of Karla 13.2 Plt Count 155 MPV 10.5 H PT 10.3 INR 1.0 APTT 26.2 PTT Ratio 1.0 Sodium 138 Potassium 2.9 L Chloride 103 Carbon Dioxide 27 Anion Gap 8.0 BUN 33 H Creatinine 2.03 H Est Cr Clr Drug Dosing 39.3 Est GFR ( Amer) 41.2 Est GFR (Non-Af Amer) 35.6 BUN/Creatinine Ratio 16.0 Glucose 97 Calcium 9.1 Magnesium Total Creatine Kinase 1363 H CK-MB (CK-2) 101.2 H CK/CKMB % Calc 7.4 H Troponin I 79.000 H* 08/23/18 15:27 WBC RBC Hgb Hct MCV MCH MCHC RDW Std Deviation RDW Coeff of Karla Plt Count MPV PT INR APTT PTT Ratio Sodium Potassium Chloride Carbon Dioxide Anion Gap BUN Creatinine Est Cr Clr Drug Dosing Est GFR ( Amer) Est GFR (Non-Af Amer) BUN/Creatinine Ratio Glucose Calcium Magnesium 1.8 Total Creatine Kinase CK-MB (CK-2) CK/CKMB % Calc Troponin I 61.600 H* Diagnostic Findings ECGs personally reviewed as noted above in HPI. Echo 08/23/2018 personally reviewed: Normal LV systolic function. Inferolateral hypokinesis. Mild MR. Mild left atrial dilation. Normal RVSP. Medications Administered Current Inpatient Medications Acetaminophen (Tylenol) 650 mg PO Q4H PRN PRN Reason: Pain or Fever Stop: 09/22/18 15:05 Al Hydrox/Mg Hydrox/Simethicone (Maalox) 15 ml PO Q4H PRN PRN Reason: Dyspepsia Stop: 09/22/18 15:05 Aspirin (Ecotrin Ectab) 81 mg PO QAM [facility] Stop: 09/23/18 08:59 Atorvastatin Calcium (Lipitor) [facility] [place] Stop: 09/22/18 15:59 Dextrose (Dextrose 50%) 25 - 50 ml IV UD PRN; Protocol PRN Reason: Hypoglycemia Protocol Stop: 09/22/18 15:05 Glucagon (Glucagen) 1 mg SQ UD PRN; Protocol PRN Reason: Hypoglycemia Protocol Stop: 09/22/18 15:05 Glucose (Dex4 Glucose) 4 - 8 tabs PO UD PRN; Protocol PRN Reason: Hypoglycemia Protocol Stop: 09/22/18 15:05 Glucose (Glucose 40%) 15 - 30 gm PO UD PRN; Protocol PRN Reason: Hypoglycemia Protocol Stop: 09/22/18 15:05 Heparin Sodium/Dextrose () 1 ea IV Q15M JANETH; Protocol Stop: 08/23/18 17:12 Hydralazine HCl (Hydralazine Hcl) 10 mg IV Q8H PRN PRN Reason: HTN >165/100mmHg Stop: 09/22/18 16:05 Potassium Chloride (K Peter / Wtr) 10 meq in 100 mls @ 100 mls/hr IV Q1H JANETH Stop: 08/23/18 16:44 Last Admin: 08/23/18 15:28 Dose: 100 mls/hr Documented by: Sodium Chloride (Nss 1000ml) 1,000 mls @ 250 mls/hr IV .Q4H JANETH Stop: 09/22/18 14:59 Potassium Chloride/Sodium Chloride (Normal Saline W/20 Meq Kcl) 20 meq in 1,000 mls @ 100 mls/hr IV .Q10H JANETH Stop: 09/22/18 16:29 Insulin Aspart (Novolog Flexpen) 0 units SC ACHS JANETH Stop: 09/22/18 16:29 Magnesium Hydroxide (Milk Of Magnesia) 30 ml PO Q12H PRN PRN Reason: Constipation Stop: 09/22/18 15:05 Miscellaneous (Carbohydrates For Hypoglycemia) 15 - 30 gm PO UD PRN PRN Reason: Hypoglycemia Treatment Stop: 09/22/18 15:05 Morphine Sulfate (Morphine Sulfate) 2 mg IV Q30M PRN PRN Reason: Chest Pain Stop: 09/06/18 15:05 Nitroglycerin (Nitro-Bid 2%) 1 inch EXT Q6 JANETH Stop: 09/23/18 00:00 Nitroglycerin (Nitrostat) 0.4 mg SL UD PRN PRN Reason: Chest Pain Stop: 09/22/18 15:05 Ondansetron HCl (Zofran) 4 mg IV Q6H PRN PRN Reason: Nausea Stop: 09/22/18 15:05 Polyethylene Glycol (Miralax Powder Packet) 17 gm PO DAILY PRN PRN Reason: Constipation Stop: 09/22/18 15:05
[2018-08-23] MEDS: NSS + 20MEQ KCL 20 MEQ/1,000 ML BAG IV SCH (17:00)
--- NOTE | 2018-08-23 17:07 | Post Operative Brief Note ---
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 Dominant RCA. Faint left to left collaterals suggesting occluded OM branch but origin of the vessel not visualized. See cath report for full details after formal review. Complications none
--- NOTE | 2018-08-23 17:40 | Post Anesthesia Assessment ---
Date of Service August 23, 2018 Post Sedation Assessment Vital Signs Temp Pulse Pulse Resp BP BP Pulse Ox 08/23/18 14:59 82 16 139/84 08/23/18 13:35 78 16 146/98 H 08/23/18 11:59 36.6 C 88 20 160/99 H 96 Recovery Score Activity: Moves 4 extremities Respiration: Deep Breath/Cough Circulation: +/-20% PreAnes Value Consciousness: Fully Awake Post Sedation Plan On clinical assessment, the patient appears to have tolerated the sedation without complications. Patient is recovering as anticipated. Patient will continue to be monitored by nursing and may be discharged when sedation discharge criteria are met per below protocol. Upon Completions of procedure and additional 15 minutes continue every 5 minute vital signs and the P.A.R. score; then discharge to a Phase I or Fast Track to Phase II per the following guidelines: * Discharge Patient to appropriate Phase II area if PAR is 8 or greater or return to pre- procedure baseline. The post - procedure orders will be as directed. * If PAR score is less than 8 or not return to pre-procedure baseline then berenice ent will follow Phase I monitoring till PAR is reached for Phase II. The Phase I may be done in procedure room or may call to secure a Phase I area. * If naloxone or flumazenil are used for reversal, hold in Phase I for continued monitoring from when last reversal dose was given for a minimum of 60 minutes or longer pending the nurse and/or physician discretion of patient condition before discharge to Phase II. Please call the Sedation Physician to re-evaluate and complete post-note for discharge to Phase II area. Do NOT discharge from procedure sedation or Phase 1 until post- sedation e valuation note is complete by procedure /sedation MD Sedation Discharge Instructions to be given to the patient at discharge to home.
--- NOTE | 2018-08-23 17:50 | Cardiac Catheterization ---
Cardiac Cath Procedure Full Procedure Date August 23, 2018 Pre-Procedure Diagnosis Pre-Procedure Diagnosis: Non STEMI and Acute Coronary Syndrome AUC Score AUC Score: 9 Post-Procedure Diagnosis Post-Procedure Diagnosis: Moderate CAD and Normal Intracardiac Pressures Procedure(s) Performed Procedure(s) Performed: Coronary Angiography and Left Heart Cath Linen Tech Jose A Aquino MD Date Pitter(s) Lian Diaz Estimated Blood Loss Estimated Blood Loss: < 25 ml Medication(s) Medication(s): Fentanyl, Heparin, Lidocaine 1%, Nicardipine and Versed Summary of Findings Coronary angiography: 1. Left main coronary artery: The LMCA is large in caliber. No significant CAD. 2. Left anterior descending: The LAD is a large caliber vessel that extends to the apex. Mid LAD tapers to approximately 50% narrowing just proximal to origin of D2. Distal LAD 20%. CAITLIN 3 flow. Large D1 without significant CAD. Medium caliber D2 with focal mild dilation in the mid segment. 3. Circumflex: Large caliber vessel proximally to mid vessel and then distally extends as a small caliber vessel. Very large caliber OM1 with proximal 50% stenosis. Medium caliber OM2 with proximal 20% stenosis. CAITLIN 3 flow. Faint [id number] collateral, possibly to occluded marginal branch. 4. Right coronary artery: The RCA is a very large caliber, dominant vessel. It originates superiorly and anteriorly. Distal RCA 30%. Large PDA and large branching PL branch without significant CAD. Left heart catheterization: 1. Left ventriculography was not performed. 2. No significant aortic stenosis. 3. Normal LVEDP; 12mmHg. 4. Tracings are difficult due to frequent ventricular ectopy. Sedation start time: 4:37 p.m. Sedation end time: 5:04 p.m. Impression: 1. Possible occluded marginal branch given faint [id number] collaterals. 2. Otherwise, mild and moderate nonobstructive CAD involving the LAD, circumflex, and RCA systems. 3. Normal LVEDP. 4. No aortic stenosis. Plan: 1. Optimize medical therapy including daily aspirin 81 mg daily, Plavix 75 mg daily for 1 year if no contraindications, beta-yonatan, high-intensity statin therapy. 2. Consider GENE-inhibitor if renal function allows. 3. Monitor renal function closely. 4. Cardiac rehab. 5. Monitor on telemetry. Hemodynamics Rest Ao:: 120/73 Final Ao: 117/70 LV: 112/0/12 Recommendations Recommendations: Medical Therapy and/or Counseling Specimens Specimens: None Radiation Exposure (mGy) 1461 mGy. Fluoro time 6.5 min. 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 Cardiac Status Clinical evaluation leading to the procedure CAD Presenation: Non STEMI and Unstable angina Anginal Classification: CCS IV Heart Failure: No Cardiogenic Shock within 24 Hours: No Cardiac Arrest within 24 Hours: No Imaging Studies Past 6 Months: Yes Stress Studies Past 6 Months: No Standard Exercise Test: No Stress Echocardiogram: No Stress Testing w/SPECT MPI: No Cardiac CTA: No Coronary Anatomy Dominant: Right Left Main (% Stenosis): Normal LAD (% Stenosis): Mid (50%) and Distal (20%) D1 (% Stenosis): Normal D2 (% Stenosis): Mid (mild focal dilation) Circumflex (% Stenosis): Normal OM1 (% Stenosis): Proximal (50%) OM2 (% Stenosis): Proximal (20%) RCA (% Stenosis): Distal (30%) R PDA (% Stenosis): Normal R PL1 (% Stenosis): Normal Left Ventricular Angiography EF (%): n/a Diagnostic Physicians Name: Jose A Aquino MD Status: Urgent Closure Device Percutaneous Entry Location: Radial Closure Device: Radial Band Recommendations: Medical Therapy and/or Counseling
[2018-08-23] MEDS: ATORVASTATIN 40 MG TAB PO SCH (18:56)
[2018-08-23] MEDS: INSULIN ASPART 100 UNITS/ML 3 ML PEN SC SCH ×2 (18:57→21:28)
[2018-08-23] MEDS: TICAGRELOR 90 MG TAB PO ONE ×2 (18:58→19:43)
[2018-08-23] MEDS: Heparin IV Standard *NO* Bolus IV SCH ×4 (19:19→19:44)
[2018-08-23] MEDS: METOPROLOL TARTRATE 25 MG TAB PO SCH (21:46)
[2018-08-24] MEDS: NITROGLYCERIN 2% OINTMENT 30GM TUBE EXT SCH ×5 (01:11→23:59)
[2018-08-24] MEDS: NSS + 20MEQ KCL 20 MEQ/1,000 ML BAG IV SCH ×3 (03:11→21:39)
[2018-08-24 03:19] LABS: Basophils # (auto) 0.01 K/uL (0-0.2); Basophils % (auto) 0.1 %; Eosinophils # (auto) 0.11 K/uL (0-0.5); Eosinophils % (auto) 1.6 %; Hematocrit (blood only) 43.9 % (42-52); Hemoglobin 15.2 g/dL (14.0-18.0); Immature Granulocytes # (auto) 0.02 K/uL (0.00-0.02); Immature Granulocytes % (auto) 0.3 %; Lymphocytes # (auto) 1.27 K/uL (1.2-3.4); Mean Corpuscular Hgb Conc 34.6 g/dL (32-36); Mean Corpuscular Volume 86.2 fL (80-100); Monocytes # (auto) 0.56 K/uL (0.11-0.59); Monocytes % (auto) 8.4 %; Neutrophils # (auto) 4.71 K/uL (1.4-6.5); Neutrophils % (auto) 70.6 %; Platelet Count 142 K/uL (130-400); RDW Coefficient of Variation 13.3 % (11.5-14.5); Red Blood Count 5.09 M/uL (4.7-6.1); White Blood Count 6.68 K/uL (4.8-10.8)
[2018-08-24 03:44] LABS: BUN Creatinine Ratio 15.9 (10-20); Calcium 8.6 mg/dl (8.5-10.1); Est GFR (African American) 64.6; Est GFR (Non-African American) 55.8; Potassium 2.9 mmol/L (3.5-5.1)
[2018-08-24 03:51] LABS: Troponin I 27.3 ng/ml (0-0.045)
[2018-08-24] MEDS ORDERED: POTASSIUM CITRATE 10 MEQ TAB PO ONE (05:55)
[2018-08-24 06:00] LABS: Estimated Average Glucose 111 mg/dl; Hemoglobin A1C 5.5 % (4.5-5.6)
[2018-08-24] MEDS: INSULIN ASPART 100 UNITS/ML 3 ML PEN SC SCH ×4 (07:53→21:46)
[2018-08-24] MEDS: METOPROLOL TARTRATE 25 MG TAB PO SCH ×2 (08:34→21:35)
[2018-08-24] MEDS: LISINOPRIL 10 MG TAB PO SCH (08:35)
[2018-08-24] MEDS: ATORVASTATIN 40 MG TAB PO SCH (08:35)
[2018-08-24] MEDS: ASPIRIN 81 MG ECTAB PO SCH (08:35)
[2018-08-24] MEDS ORDERED: TICAGRELOR 90 MG TAB PO SCH (09:00)
[2018-08-24] MEDS: Heparin Adult STANDARD Wt-Based Dextrose 5% 25,000 units/500 mL IV SCH (09:59)
[2018-08-24] MEDS: CLOPIDOGREL BISULFATE 75 MG TAB PO SCH (09:59)
[2018-08-24] MEDS ORDERED: HEPARIN IV BOLUS 6,000 UNITS in SYRINGE 0 ML IV ONE (10:15)
--- NOTE | 2018-08-24 10:59 | Family Medicine Progress Note ---
Date of Service August 24, 2018 Assessment & Plan (1) NSTEMI (non-ST elevated myocardial infarction): 57 yo M with pMHx HTN, HLD, diet controlled DM, and colon cancer s/p total colectomy in 2009 referred to ED by PCP for CP and t wave inversion on EKG, and admitted with NSTEMI and elevated troponin 79.0 NSTEMI Cardiology consulted in ED, recs appreciated. - Beside echo was performed by Dr. Aquino in ED: regional wall motion abnormality, ++LVH - Cardiac cath revealed non-obstructive CAD, nl LVEDP, no - Monitor in telemetry for total of 48 hours with heparin drip - Nitro SL, nitro paste, IV morphine and EKG PRN chest pain - Serial troponins downtrended - A1c of 5.5, fasting lipids: Tri 112, Tchol 145 LDL 77, HDL 46 - Med mgmt: aspirin 81, plavix 75 x 1 year, atorvastatin 80, metoprolol succ 50qAM, lisinopril 10 (with now improved creatinine) - Discussed Mediterranean diet, cardiac rehab - If no CP on exertion, may be DCd on 08/25 after 48 hours on heparin Elevated serum creatinine on bkgd of CKD III Follows Dr. Borrero as outpatient. Baseline creatinine ~1.5, admission creatinine 2.03 -After IVF, Cr returned to below baseline at 1.4. -Continue to monitor, on outpatient as well. Hypokalemia Possibly related to chlorthalidone use vs chronic GI loss 2/2 colectomy with intermittent diarrheal episodes - Magnesium level of 1.8; given one time supplement for goal >2.0 - Replete prn, monitor as outpatient with goal >4.0 HTN - Stop home meds (chlorthalidone 25mg daily and diltiazem XR 240mg daily) - Metoprolol succinate 50mg qAM - PRN IV hydralazine if BP >165/100mmHg for now, hold for HR <60mmHg HLD Nov 2017: chol 178, LDL 114, HDL 44, TG 101 This visit: chol 145, LDL 77, HDL 46, TG 112 - Initiated high dose atorvastatin 80mg DMII, diet controlled Jan 2018: A1c 5.2, not on medications, very active with recent intentional 20lb weight loss over last year - A1C this visit: 5.5. - BSG ac/hs with ISS while in hospital VTE ppx - Heparin drip x 24 more hours Status: FULL CODE (2) Elevated serum creatinine: (3) Hypokalemia: (4) Chronic kidney disease: (5) Hypertension: (6) Dyslipidemia: (7) Diabetes mellitus type 2, diet-controlled: Supervising Physician Co-Signing Physician Notes I personally examined the patient and verified all villarreal points of history and exam, discussed case, and agree with decision making with Dr Stafford. Feeling good. No chest pain. Vitals noted, in general he is awake and alert pleasant no distress. HEENT normocephalic atraumatic mucous membranes moist. Breathing unlabored no accessory muscle use good effort. Skin shows no rashes no pallor or icterus. NSTEMIsecondary risk reduction, med management, discussed meds and lifestyle change. Stable. Continue to follow into tomorrow. Hopefully home tomorrow. Subjective patient in good spirits this am. Eager to treat condition. Denies CP, diaphoresis, n/v, no new bleeding, no ankle swelling. Review of Systems Review of Systems: All systems reviewed & are unremarkable except as noted in HPI & below Constitutional: no fever, no chills, no fatigue and no weakness Respiratory: no cough, no chest congestion, no dyspnea and no dyspnea on exertion Cardiovascular: no chest pain, no chest pain at rest, no radiating jaw, neck or arm pain, no dyspnea, no orthopnea, no palpitations, no lightheadedness and no edema Gastrointestinal: no abdominal pain, no nausea and no vomiting Integumentary: no bleeding lesions Neurologic: no tingling and no numbness Physical Exam Constitutional: WD/WN, vitals as above average body habitus; no acute distress and not ill appearing Eyes: no conjunctival abnormality and no scleral abnormality Neck: trachea midline, no thyromegaly Respiratory: normal respiratory effort, lungs clear to auscultation no cough Auscultation: no crackles and no wheezes Cardiovascular: RRR, no murmur, no edema Heart Sounds: normal S1 and normal S2; no murmur Vessels: normal peripheral pulses; no JVD and no carotid bruit Extremities: normal capillary refill; no calf tenderness, no edema and no varicosities Chest (Breasts): Chest: normal inspection of chest Gastrointestinal (Abdomen): normal bowel sounds, soft, nontender, no hepatosplenomegaly Percussion/Palpation: no guarding and abdomen not rigid Musculoskeletal: Head/Neck/Chest: normocephalic and head atraumatic Extremities: extremities normal to inspection Skin: no rashes, warm and dry Neurologic: CN's II-XI intact bilaterally and moves all extremities; no focal motor deficits Psychiatric: A+Ox3, euthymic affect Insight: good insight Results & Data Vital Signs (Past 12 Hours) Vital Signs Temp Pulse Pulse Resp BP BP Pulse Ox 08/24/18 08:00 69 08/24/18 07:20 36.9 C 61 20 142/80 H 95 08/24/18 03:17 36.6 C 65 16 124/78 95 08/23/18 23:48 36.8 C 58 L 18 136/82 95 Laboratory Results 08/24/18 08/24/18 08/24/18 Range/Units 07:13 06:42 02:58 WBC (4.8-10.8) K/uL RBC (4.7-6.1) M/uL Hgb (14.0-18.0) g/dL Hct (42-52) % MCV (80-100) fL MCH (25-34) pg MCHC (32-36) g/dL RDW Std Deviation (36.4-46.3) fL RDW Coeff of Karla (11.5-14.5) % Plt Count (130-400) K/uL MPV (7.4-10.4) fL Immature Gran % (Auto) % Neut % (Auto) % Lymph % (Auto) % [place] % (Auto) % Eos % (Auto) % Baso % (Auto) % Immature Gran # (Auto) (0.00-0.02) K/uL Neut # (Auto) (1.4-6.5) K/uL Lymph # (Auto) (1.2-3.4) K/uL [place] # (Auto) (0.11-0.59) K/uL Eos # (Auto) (0-0.5) K/uL Baso # (Auto) (0-0.2) K/uL PT (9.0-12.0) Seconds INR (0.9-1.1) APTT (21.0-31.0) Seconds PTT Ratio Activ Coag Time Kaolin (94-140) SECONDS Sodium (136-145) mmol/L Potassium (3.5-5.1) mmol/L Chloride (98-107) mmol/L Carbon Dioxide (21-32) mmol/L Anion Gap (3-11) BUN (7-18) mg/dl Creatinine (0.6-1.4) mg/dl Est Cr Clr Drug Dosing ml/min Est GFR ( Amer) Est GFR (Non-Af Amer) BUN/Creatinine Ratio (10-20) Glucose (70-99) mg/dl POC Glucose 105 H (70-99) Estimat Average Glucose 111 mg/dl Hemoglobin A1c 5.5 (4.5-5.6) % Calcium (8.5-10.1) mg/dl Magnesium (1.8-2.4) mg/dl Total Creatine Kinase (39-308) U/L CK-MB (CK-2) (0.5-3.6) ng/ml CK/CKMB % Calc (0-3.0) Troponin I 21.800 H* (0-0.045) ng/ml Triglycerides (0-150) mg/dl Cholesterol (0-200) mg/dl LDL Cholesterol, Calc mg/dl VLDL Cholesterol, Calc mg/dl HDL Cholesterol mg/dl Cholesterol/HDL Ratio Hepatitis C Ab Screen (Neg) 08/24/18 08/24/18 08/23/18 Range/Units 02:58 02:58 21:20 WBC 6.68 (4.8-10.8) K/uL RBC 5.09 (4.7-6.1) M/uL Hgb 15.2 (14.0-18.0) g/dL Hct 43.9 (42-52) % MCV 86.2 (80-100) fL MCH 29.9 (25-34) pg MCHC 34.6 (32-36) g/dL RDW Std Deviation 42.0 (36.4-46.3) fL RDW Coeff of Karla 13.3 (11.5-14.5) % Plt Count 142 (130-400) K/uL MPV 10.0 (7.4-10.4) fL Immature Gran % (Auto) 0.3 % Neut % (Auto) 70.6 % Lymph % (Auto) 19.0 % [place] % (Auto) 8.4 % Eos % (Auto) 1.6 % Baso % (Auto) 0.1 % Immature Gran # (Auto) 0.02 (0.00-0.02) K/uL Neut # (Auto) 4.71 (1.4-6.5) K/uL Lymph # (Auto) 1.27 (1.2-3.4) K/uL [place] # (Auto) 0.56 (0.11-0.59) K/uL Eos # (Auto) 0.11 (0-0.5) K/uL Baso # (Auto) 0.01 (0-0.2) K/uL PT (9.0-12.0) Seconds INR (0.9-1.1) APTT (21.0-31.0) Seconds PTT Ratio Activ Coag Time Kaolin (94-140) SECONDS Sodium 140 (136-145) mmol/L Potassium 2.9 L (3.5-5.1) mmol/L Chloride 107 (98-107) mmol/L Carbon Dioxide 27 (21-32) mmol/L Anion Gap 6.0 (3-11) BUN 22 H (7-18) mg/dl Creatinine 1.40 D (0.6-1.4) mg/dl Est Cr Clr Drug Dosing 57.0 ml/min Est GFR ( Amer) 64.6 Est GFR (Non-Af Amer) 55.8 BUN/Creatinine Ratio 15.9 (10-20) Glucose 99 (70-99) mg/dl POC Glucose (70-99) Estimat Average Glucose mg/dl Hemoglobin A1c (4.5-5.6) % Calcium 8.6 (8.5-10.1) mg/dl Magnesium (1.8-2.4) mg/dl Total Creatine Kinase (39-308) U/L CK-MB (CK-2) (0.5-3.6) ng/ml CK/CKMB % Calc (0-3.0) Troponin I 27.300 H* (0-0.045) ng/ml Triglycerides 112 (0-150) mg/dl Cholesterol 145 (0-200) mg/dl LDL Cholesterol, Calc 77 mg/dl VLDL Cholesterol, Calc 22 mg/dl HDL Cholesterol 46 mg/dl Cholesterol/HDL Ratio 3 Hepatitis C Ab Screen Neg (Neg) 08/23/18 08/23/18 08/23/18 Range/Units 21:20 20:01 18:01 WBC (4.8-10.8) K/uL RBC (4.7-6.1) M/uL Hgb (14.0-18.0) g/dL Hct (42-52) % MCV (80-100) fL MCH (25-34) pg MCHC (32-36) g/dL RDW Std Deviation (36.4-46.3) fL RDW Coeff of Karla (11.5-14.5) % Plt Count (130-400) K/uL MPV (7.4-10.4) fL Immature Gran % (Auto) % Neut % (Auto) % Lymph % (Auto) % [place] % (Auto) % Eos % (Auto) % Baso % (Auto) % Immature Gran # (Auto) (0.00-0.02) K/uL Neut # (Auto) (1.4-6.5) K/uL Lymph # (Auto) (1.2-3.4) K/uL [place] # (Auto) (0.11-0.59) K/uL Eos # (Auto) (0-0.5) K/uL Baso # (Auto) (0-0.2) K/uL PT (9.0-12.0) Seconds INR (0.9-1.1) APTT (21.0-31.0) Seconds PTT Ratio Activ Coag Time Kaolin (94-140) SECONDS Sodium (136-145) mmol/L Potassium (3.5-5.1) mmol/L Chloride (98-107) mmol/L Carbon Dioxide (21-32) mmol/L Anion Gap (3-11) BUN (7-18) mg/dl Creatinine (0.6-1.4) mg/dl Est Cr Clr Drug Dosing ml/min Est GFR ( Amer) Est GFR (Non-Af Amer) BUN/Creatinine Ratio (10-20) Glucose (70-99) mg/dl POC Glucose 126 H 97 (70-99) Estimat Average Glucose mg/dl Hemoglobin A1c (4.5-5.6) % Calcium (8.5-10.1) mg/dl Magnesium (1.8-2.4) mg/dl Total Creatine Kinase (39-308) U/L CK-MB (CK-2) (0.5-3.6) ng/ml CK/CKMB % Calc (0-3.0) Troponin I 34.400 H* (0-0.045) ng/ml Triglycerides (0-150) mg/dl Cholesterol (0-200) mg/dl LDL Cholesterol, Calc mg/dl VLDL Cholesterol, Calc mg/dl HDL Cholesterol mg/dl Cholesterol/HDL Ratio Hepatitis C Ab Screen (Neg) 08/23/18 08/23/18 08/23/18 Range/Units 16:46 15:27 12:11 WBC (4.8-10.8) K/uL RBC (4.7-6.1) M/uL Hgb (14.0-18.0) g/dL Hct (42-52) % MCV (80-100) fL MCH (25-34) pg MCHC (32-36) g/dL RDW Std Deviation (36.4-46.3) fL RDW Coeff of Karla (11.5-14.5) % Plt Count (130-400) K/uL MPV (7.4-10.4) fL Immature Gran % (Auto) % Neut % (Auto) % Lymph % (Auto) % [place] % (Auto) % Eos % (Auto) % Baso % (Auto) % Immature Gran # (Auto) (0.00-0.02) K/uL Neut # (Auto) (1.4-6.5) K/uL Lymph # (Auto) (1.2-3.4) K/uL [place] # (Auto) (0.11-0.59) K/uL Eos # (Auto) (0-0.5) K/uL Baso # (Auto) (0-0.2) K/uL PT 10.3 (9.0-12.0) Seconds INR 1.0 (0.9-1.1) APTT 26.2 (21.0-31.0) Seconds PTT Ratio 1.0 Activ Coag Time Kaolin 147 H (94-140) SECONDS Sodium (136-145) mmol/L Potassium (3.5-5.1) mmol/L Chloride (98-107) mmol/L Carbon Dioxide (21-32) mmol/L Anion Gap (3-11) BUN (7-18) mg/dl Creatinine (0.6-1.4) mg/dl Est Cr Clr Drug Dosing ml/min Est GFR ( Amer) Est GFR (Non-Af Amer) BUN/Creatinine Ratio (10-20) Glucose (70-99) mg/dl POC Glucose (70-99) Estimat Average Glucose mg/dl Hemoglobin A1c (4.5-5.6) % Calcium (8.5-10.1) mg/dl Magnesium 1.8 (1.8-2.4) mg/dl Total Creatine Kinase (39-308) U/L CK-MB (CK-2) (0.5-3.6) ng/ml CK/CKMB % Calc (0-3.0) Troponin I 61.600 H* (0-0.045) ng/ml Triglycerides (0-150) mg/dl Cholesterol (0-200) mg/dl LDL Cholesterol, Calc mg/dl VLDL Cholesterol, Calc mg/dl HDL Cholesterol mg/dl Cholesterol/HDL Ratio Hepatitis C Ab Screen (Neg) 08/23/18 08/23/18 Range/Units 12:11 12:11 WBC 8.83 (4.8-10.8) K/uL RBC 5.69 (4.7-6.1) M/uL Hgb 17.3 (14.0-18.0) g/dL Hct 49.4 (42-52) % MCV 86.8 (80-100) fL MCH 30.4 (25-34) pg MCHC 35.0 (32-36) g/dL RDW Std Deviation 41.6 (36.4-46.3) fL RDW Coeff of Karla 13.2 (11.5-14.5) % Plt Count 155 (130-400) K/uL MPV 10.5 H (7.4-10.4) fL Immature Gran % (Auto) % Neut % (Auto) % Lymph % (Auto) % [place] % (Auto) % Eos % (Auto) % Baso % (Auto) % Immature Gran # (Auto) (0.00-0.02) K/uL Neut # (Auto) (1.4-6.5) K/uL Lymph # (Auto) (1.2-3.4) K/uL [place] # (Auto) (0.11-0.59) K/uL Eos # (Auto) (0-0.5) K/uL Baso # (Auto) (0-0.2) K/uL PT (9.0-12.0) Seconds INR (0.9-1.1) APTT (21.0-31.0) Seconds PTT Ratio Activ Coag Time Kaolin (94-140) SECONDS Sodium 138 (136-145) mmol/L Potassium 2.9 L (3.5-5.1) mmol/L Chloride 103 (98-107) mmol/L Carbon Dioxide 27 (21-32) mmol/L Anion Gap 8.0 (3-11) BUN 33 H (7-18) mg/dl Creatinine 2.03 H (0.6-1.4) mg/dl Est Cr Clr Drug Dosing 39.3 ml/min Est GFR ( Amer) 41.2 Est GFR (Non-Af Amer) 35.6 BUN/Creatinine Ratio 16.0 (10-20) Glucose 97 (70-99) mg/dl POC Glucose (70-99) Estimat Average Glucose mg/dl Hemoglobin A1c (4.5-5.6) % Calcium 9.1 (8.5-10.1) mg/dl Magnesium (1.8-2.4) mg/dl Total Creatine Kinase 1363 H (39-308) U/L CK-MB (CK-2) 101.2 H (0.5-3.6) ng/ml CK/CKMB % Calc 7.4 H (0-3.0) Troponin I 79.000 H* (0-0.045) ng/ml Triglycerides (0-150) mg/dl Cholesterol (0-200) mg/dl LDL Cholesterol, Calc mg/dl VLDL Cholesterol, Calc mg/dl HDL Cholesterol mg/dl Cholesterol/HDL Ratio Hepatitis C Ab Screen (Neg) Medications Administered Current Inpatient Medications Acetaminophen (Tylenol) 650 mg PO Q4H PRN PRN Reason: Pain or Fever Stop: 09/22/18 15:05 Al Hydrox/Mg Hydrox/Simethicone (Maalox) 15 ml PO Q4H PRN PRN Reason: Dyspepsia Stop: 09/22/18 15:05 Aspirin (Ecotrin Ectab) 81 mg PO [facility] Stop: 09/23/18 08:59 Last Admin: 08/24/18 08:35 Dose: 81 mg Documented by: Atorvastatin Calcium (Lipitor) 80 mg PO [facility] Stop: 09/22/18 15:59 Last Admin: 08/24/18 08:35 Dose: 80 mg Documented by: Clopidogrel Bisulfate (Plavix) 75 mg PO [facility] Stop: 09/23/18 08:59 Last Admin: 08/24/18 09:59 Dose: 75 mg Documented by: Dextrose (Dextrose 50%) 25 - 50 ml IV UD PRN; Protocol PRN Reason: Hypoglycemia Protocol Stop: 09/22/18 15:05 Glucagon (Glucagen) 1 mg SQ UD PRN; Protocol PRN Reason: Hypoglycemia Protocol Stop: 09/22/18 15:05 Glucose (Dex4 Glucose) 4 - 8 tabs PO UD PRN; Protocol PRN Reason: Hypoglycemia Protocol Stop: 09/22/18 15:05 Glucose (Glucose 40%) 15 - 30 gm PO UD PRN; Protocol PRN Reason: Hypoglycemia Protocol Stop: 09/22/18 15:05 Hydralazine HCl (Hydralazine Hcl) 10 mg IV Q8H PRN PRN Reason: HTN >165/100mmHg Stop: 09/22/18 16:05 Potassium Chloride/Sodium Chloride (Normal Saline W/20 Meq Kcl) 20 meq in 1,000 mls @ 100 mls/hr IV .Q10H [facility] Stop: 09/22/18 16:29 Last Admin: 08/24/18 03:11 Dose: 100 mls/hr Documented by: Heparin Sodium/Dextrose (Heparin Sodium/Dextrose) 25,000 units in 500 mls @ 26 mls/hr IV .[id number] [facility]; Protocol Stop: 09/23/18 09:59 Last Admin: 08/24/18 09:59 Dose: 1,300 units/hr, 26 mls/hr Documented by: Insulin Aspart (Novolog Flexpen) [facility] Stop: 09/22/18 16:29 Last Admin: 08/24/18 07:53 Dose: Not Given Documented by: Lisinopril (Zestril) 10 mg PO [facility] Stop: 09/23/18 08:59 Last Admin: 08/24/18 08:35 Dose: 10 mg Documented by: Magnesium Hydroxide (Milk Of Magnesia) 30 ml PO Q12H PRN PRN Reason: Constipation Stop: 09/22/18 15:05 Metoprolol Tartrate (Lopressor) 12.5 mg PO BID [facility] Stop: 09/22/18 20:59 Last Admin: 08/24/18 08:34 Dose: 12.5 mg Documented by: Miscellaneous (Carbohydrates For Hypoglycemia) 15 - 30 gm PO UD PRN PRN Reason: Hypoglycemia Treatment Stop: 09/22/18 15:05 Morphine Sulfate (Morphine Sulfate) 2 mg IV Q30M PRN PRN Reason: Chest Pain Stop: 09/06/18 15:05 Nitroglycerin (Nitro-Bid 2%) 1 inch EXT Q6 [facility] Stop: 09/23/18 00:00 Last Admin: 08/24/18 06:07 Dose: 1 inch Documented by: Nitroglycerin (Nitrostat) 0.4 mg SL UD PRN PRN Reason: Chest Pain Stop: 09/22/18 15:05 Ondansetron HCl (Zofran) 4 mg IV Q6H PRN PRN Reason: Nausea Stop: 09/22/18 15:05 Polyethylene Glycol (Miralax Powder Packet) 17 gm PO DAILY PRN PRN Reason: Constipation Stop: 09/22/18 15:05 Resident Activity Tracking Resident Involvement: Resident Care Provided Care Provided: Adult Hospital Medicine
--- NOTE | 2018-08-24 13:50 | Cardiology Progress Note ---
Date of Service August 24, 2018 Assessment & Plan (1) NSTEMI (non-ST elevated myocardial infarction): There was no residual severe stenosis requiring PCI yesterday during cardiac catheterization. There were some faint [id number]-[id number] collaterals, suggesting occluded marginal branch. He has not had any further anginal symptoms. Continue medical therapy. Heparin drip until discharged as part of medical therapy. Will change Brilinta to Plavix 75 mg daily. Continue aspirin 81 mg daily. Continue Plavix 75 mg daily for 1 year if no contraindication. Continue beta-yonatan and high-intensity statin therapy. Continue GENE- inhibitor. Cardiac rehabilitation recommended and discussed with him today. (2) CAD (coronary artery disease), [place] coronary artery: Residual CAD was nonobstructive. There were eyso-li-xovi collaterals that were of small/faint as noted above. Continue medical therapy as outlined above. (3) Chronic kidney disease: Creatinine has improved following hydration. Continue to follow with Nephrology. (4) Left ventricular hypertrophy: Severe left ventricular hypertrophy on echo. Blood pressure has been better controlled. Continue GENE-inhibitor. Continue beta-yonatan. (5) Angina at rest: Resolved. Continue medical therapy. (6) Hypertension: Blood pressure has mostly been normotensive since admission. Continue GENE-inhibitor and beta-yonatan. Disposition: Would recommend hospitalization for a total of 48 hours from presentation as he was still symptomatic at that time. If no adverse events, would be okay from a cardiology perspective to discharge tomorrow on metoprolol, aspirin 81 mg daily, Plavix 75 mg daily, GENE-inhibitor, high-intensity statin therapy, and p.r.n. nitroglycerin. Cardiac rehabilitation recommended. Follow- up in the cardiology office in the next 1-2 weeks. Patient care discussed with primary service, Dr. March. Subjective He has not had any further chest discomfort. He denies syncope, near-syncope, shortness of breath, palpitations, edema, or bleeding. His right radial cath site has not had any issues and is not painful. Review of systems: As above. Physical Exam Physical Exam: Gen.: No acute distress. Alert and oriented. HEENT: Anicteric sclera. Neck: No JVD. Cardiac: Regular. Normal S1-S2. No murmurs, rubs, or gallops. Pulmonary: Clear to auscultation bilaterally without wheezes, rales, or rhonchi. Abdomen: Soft, nontender, nondistended, with normoactive bowel sounds. No bruits noted. Extremities: Right radial cath site is clean, dry, and intact without erythema or discharge. 2+ right radial pulse. No edema or cyanosis. Psychiatric: Affect appears appropriate. Results & Data Vital Signs (Past 12 Hours) Vital Signs Temp Pulse Pulse Resp BP BP Pulse Ox 08/24/18 11:21 36.8 C 65 18 130/85 96 08/24/18 08:00 69 08/24/18 07:20 36.9 C 61 20 142/80 H 95 08/24/18 03:17 36.6 C 65 16 124/78 95 Laboratory Results Laboratory Results - last 24 hr 08/23/18 08/23/18 08/23/18 12:11 15:27 16:46 WBC RBC Hgb Hct MCV MCH MCHC RDW Std Deviation RDW Coeff of Karla Plt Count MPV Immature Gran % (Auto) Neut % (Auto) Lymph % (Auto) [place] % (Auto) Eos % (Auto) Baso % (Auto) Immature Gran # (Auto) Neut # (Auto) Lymph # (Auto) [place] # (Auto) Eos # (Auto) Baso # (Auto) PT 10.3 INR 1.0 APTT 26.2 PTT Ratio 1.0 Activ Coag Time Kaolin 147 H Sodium Potassium Chloride Carbon Dioxide Anion Gap BUN Creatinine Est Cr Clr Drug Dosing Est GFR ( Amer) Est GFR (Non-Af Amer) BUN/Creatinine Ratio Glucose POC Glucose Estimat Average Glucose Hemoglobin A1c Calcium Magnesium 1.8 Troponin I 61.600 H* Triglycerides Cholesterol LDL Cholesterol, Calc VLDL Cholesterol, Calc HDL Cholesterol Cholesterol/HDL Ratio Hepatitis C Ab Screen 08/23/18 08/23/18 08/23/18 18:01 20:01 21:20 WBC RBC Hgb Hct MCV MCH MCHC RDW Std Deviation RDW Coeff of Karla Plt Count MPV Immature Gran % (Auto) Neut % (Auto) Lymph % (Auto) [place] % (Auto) Eos % (Auto) Baso % (Auto) Immature Gran # (Auto) Neut # (Auto) Lymph # (Auto) [place] # (Auto) Eos # (Auto) Baso # (Auto) PT INR APTT PTT Ratio Activ Coag Time Kaolin Sodium Potassium Chloride Carbon Dioxide Anion Gap BUN Creatinine Est Cr Clr Drug Dosing Est GFR ( Amer) Est GFR (Non-Af Amer) BUN/Creatinine Ratio Glucose POC Glucose 97 126 H Estimat Average Glucose Hemoglobin A1c Calcium Magnesium Troponin I 34.400 H* Triglycerides Cholesterol LDL Cholesterol, Calc VLDL Cholesterol, Calc HDL Cholesterol Cholesterol/HDL Ratio Hepatitis C Ab Screen 08/23/18 08/24/18 08/24/18 21:20 02:58 02:58 WBC 6.68 RBC 5.09 Hgb 15.2 Hct 43.9 MCV 86.2 MCH 29.9 MCHC 34.6 RDW Std Deviation 42.0 RDW Coeff of Karla 13.3 Plt Count 142 MPV 10.0 Immature Gran % (Auto) 0.3 Neut % (Auto) 70.6 Lymph % (Auto) 19.0 [place] % (Auto) 8.4 Eos % (Auto) 1.6 Baso % (Auto) 0.1 Immature Gran # (Auto) 0.02 Neut # (Auto) 4.71 Lymph # (Auto) 1.27 [place] # (Auto) 0.56 Eos # (Auto) 0.11 Baso # (Auto) 0.01 PT INR APTT PTT Ratio Activ Coag Time Kaolin Sodium 140 Potassium 2.9 L Chloride 107 Carbon Dioxide 27 Anion Gap 6.0 BUN 22 H Creatinine 1.40 D Est Cr Clr Drug Dosing 57.0 Est GFR ( Amer) 64.6 Est GFR (Non-Af Amer) 55.8 BUN/Creatinine Ratio 15.9 Glucose 99 POC Glucose Estimat Average Glucose Hemoglobin A1c Calcium 8.6 Magnesium Troponin I 27.300 H* Triglycerides 112 Cholesterol 145 LDL Cholesterol, Calc 77 VLDL Cholesterol, Calc 22 HDL Cholesterol 46 Cholesterol/HDL Ratio 3 Hepatitis C Ab Screen Neg 08/24/18 08/24/18 08/24/18 02:58 06:42 07:13 WBC RBC Hgb Hct MCV MCH MCHC RDW Std Deviation RDW Coeff of Karla Plt Count MPV Immature Gran % (Auto) Neut % (Auto) Lymph % (Auto) [place] % (Auto) Eos % (Auto) Baso % (Auto) Immature Gran # (Auto) Neut # (Auto) Lymph # (Auto) [place] # (Auto) Eos # (Auto) Baso # (Auto) PT INR APTT PTT Ratio Activ Coag Time Kaolin Sodium Potassium Chloride Carbon Dioxide Anion Gap BUN Creatinine Est Cr Clr Drug Dosing Est GFR ( Amer) Est GFR (Non-Af Amer) BUN/Creatinine Ratio Glucose POC Glucose 105 H Estimat Average Glucose 111 Hemoglobin A1c 5.5 Calcium Magnesium Troponin I 21.800 H* Triglycerides Cholesterol LDL Cholesterol, Calc VLDL Cholesterol, Calc HDL Cholesterol Cholesterol/HDL Ratio Hepatitis C Ab Screen 08/24/18 11:05 WBC RBC Hgb Hct MCV MCH MCHC RDW Std Deviation RDW Coeff of Karla Plt Count MPV Immature Gran % (Auto) Neut % (Auto) Lymph % (Auto) [place] % (Auto) Eos % (Auto) Baso % (Auto) Immature Gran # (Auto) Neut # (Auto) Lymph # (Auto) [place] # (Auto) Eos # (Auto) Baso # (Auto) PT INR APTT PTT Ratio Activ Coag Time Kaolin Sodium Potassium Chloride Carbon Dioxide Anion Gap BUN Creatinine Est Cr Clr Drug Dosing Est GFR ( Amer) Est GFR (Non-Af Amer) BUN/Creatinine Ratio Glucose POC Glucose 119 H Estimat Average Glucose Hemoglobin A1c Calcium Magnesium Troponin I Triglycerides Cholesterol LDL Cholesterol, Calc VLDL Cholesterol, Calc HDL Cholesterol Cholesterol/HDL Ratio Hepatitis C Ab Screen Diagnostic Findings Telemetry personally reviewed: Sinus rhythm. ECG personally reviewed: ECG 08/24/2018: Sinus rhythm 64 bpm. First-degree AV block. Inferolateral T- wave abnormality. LVH. Cardiac catheterization 08/23/2018: 1. Left main coronary artery: The LMCA is large in caliber. No significant CAD. 2. Left anterior descending: The LAD is a large caliber vessel that extends to the apex. Mid LAD tapers to approximately 50% narrowing just proximal to origin of D2. Distal LAD 20%. CAITLIN 3 flow. Large D1 without significant CAD. Medium caliber D2 with focal mild dilation in the mid segment. 3. Circumflex: Large caliber vessel proximally to mid vessel and then distally extends as a small caliber vessel. Very large caliber OM1 with proximal 50% stenosis. Medium caliber OM2 with proximal 20% stenosis. CAITLIN 3 flow. Faint gysw-ys-lvhr collateral, possibly to occluded marginal branch. 4. Right coronary artery: The RCA is a very large caliber, dominant vessel. It originates superiorly and anteriorly. Distal RCA 30%. Large PDA and large branching PL branch without significant CAD. Medications Administered Current Inpatient Medications Acetaminophen (Tylenol) 650 mg PO Q4H PRN PRN Reason: Pain or Fever Stop: 09/22/18 15:05 Al Hydrox/Mg Hydrox/Simethicone (Maalox) 15 ml PO Q4H PRN PRN Reason: Dyspepsia Stop: 09/22/18 15:05 Aspirin (Ecotrin Ectab) 81 mg PO [facility] Stop: 09/23/18 08:59 Last Admin: 08/24/18 08:35 Dose: 81 mg Documented by: Atorvastatin Calcium (Lipitor) 80 mg PO [facility] Stop: 09/22/18 15:59 Last Admin: 08/24/18 08:35 Dose: 80 mg Documented by: Clopidogrel Bisulfate (Plavix) 75 mg PO [facility] Stop: 09/23/18 08:59 Last Admin: 08/24/18 09:59 Dose: 75 mg Documented by: Dextrose (Dextrose 50%) 25 - 50 ml IV UD PRN; Protocol PRN Reason: Hypoglycemia Protocol Stop: 09/22/18 15:05 Glucagon (Glucagen) 1 mg SQ UD PRN; Protocol PRN Reason: Hypoglycemia Protocol Stop: 09/22/18 15:05 Glucose (Dex4 Glucose) 4 - 8 tabs PO UD PRN; Protocol PRN Reason: Hypoglycemia Protocol Stop: 09/22/18 15:05 Glucose (Glucose 40%) 15 - 30 gm PO UD PRN; Protocol PRN Reason: Hypoglycemia Protocol Stop: 09/22/18 15:05 Hydralazine HCl (Hydralazine Hcl) 10 mg IV Q8H PRN PRN Reason: HTN >165/100mmHg Stop: 09/22/18 16:05 Potassium Chloride/Sodium Chloride (Normal Saline W/20 Meq Kcl) 20 meq in 1,000 mls @ 100 mls/hr IV .Q10H [facility] Stop: 09/22/18 16:29 Last Admin: 08/24/18 12:12 Dose: 100 mls/hr Documented by: Heparin Sodium/Dextrose (Heparin Sodium/Dextrose) 25,000 units in 500 mls @ 26 mls/hr IV .[id number] [facility]; Protocol Stop: 09/23/18 09:59 Last Admin: 08/24/18 09:59 Dose: 1,300 units/hr, 26 mls/hr Documented by: Insulin Aspart (Novolog Flexpen) 0 units SC [facility] Stop: 09/22/18 16:29 Last Admin: 08/24/18 12:25 Dose: 2 units Documented by: Lisinopril (Zestril) 10 mg PO QAM [facility] Stop: 09/23/18 08:59 Last Admin: 08/24/18 08:35 Dose: 10 mg Documented by: Magnesium Hydroxide (Milk Of Magnesia) 30 ml PO Q12H PRN PRN Reason: Constipation Stop: 09/22/18 15:05 Metoprolol Tartrate (Lopressor) 12.5 mg PO BID [facility] Stop: 09/22/18 20:59 Last Admin: 08/24/18 08:34 Dose: 12.5 mg Documented by: Miscellaneous (Carbohydrates For Hypoglycemia) 15 - 30 gm PO UD PRN PRN Reason: Hypoglycemia Treatment Stop: 09/22/18 15:05 Morphine Sulfate (Morphine Sulfate) 2 mg IV Q30M PRN PRN Reason: Chest Pain Stop: 09/06/18 15:05 Nitroglycerin (Nitro-Bid 2%) 1 inch EXT Q6 [facility] Stop: 09/23/18 00:00 Last Admin: 08/24/18 12:16 Dose: 1 inch Documented by: Nitroglycerin (Nitrostat) 0.4 mg SL UD PRN PRN Reason: Chest Pain Stop: 09/22/18 15:05 Ondansetron HCl (Zofran) 4 mg IV Q6H PRN PRN Reason: Nausea Stop: 09/22/18 15:05 Polyethylene Glycol (Miralax Powder Packet) 17 gm PO DAILY PRN PRN Reason: Constipation Stop: 09/22/18 15:05
[2018-08-24] MEDS ORDERED: POTASSIUM CHLORIDE 20 MEQ TABCR PO STA (15:15)
[2018-08-24] MEDS ORDERED: MAGNESIUM OXIDE 400 MG TAB PO ONE (15:20)
[2018-08-24 16:37] LABS: Partial Thromboplastin Ratio 1.6; Partial Thromboplastin Time 42.7 Seconds (21.0-31.0)
[2018-08-24] MEDS ORDERED: HEPARIN SOD (PORCINE) 1000 UNIT/ML 10 ML VIAL IV ONE (18:20)
[2018-08-24] MEDS ORDERED: HEPARIN IV BOLUS 3,000 UNITS in SYRINGE 0 ML IV ONE (18:45)
[2018-08-25] MEDS: Heparin Adult STANDARD Wt-Based Dextrose 5% 25,000 units/500 mL IV SCH (01:19)
[2018-08-25 02:01] LABS: Partial Thromboplastin Ratio 1.9
[2018-08-25 02:07] LABS: Partial Thromboplastin Time 52.1 Seconds (21.0-31.0)
[2018-08-25] MEDS: NITROGLYCERIN 2% OINTMENT 30GM TUBE EXT SCH (05:34)
[2018-08-25 06:03] LABS: Partial Thromboplastin Ratio 1.8
[2018-08-25 06:05] LABS: Partial Thromboplastin Time 49.2 Seconds (21.0-31.0)
[2018-08-25 06:34] LABS: BUN Creatinine Ratio 12.5 (10-20); Calcium 8.5 mg/dl (8.5-10.1); Creatinine Clr Calc Pharmacy 67.8 ml/min; Est GFR (African American) 66.9; Est GFR (Non-African American) 57.8; Potassium 3.6 mmol/L (3.5-5.1)
[2018-08-25] MEDS: NSS + 20MEQ KCL 20 MEQ/1,000 ML BAG IV SCH (07:41)
[2018-08-25] MEDS: ASPIRIN 81 MG ECTAB PO SCH (08:05)
[2018-08-25] MEDS: INSULIN ASPART 100 UNITS/ML 3 ML PEN SC SCH (08:06)
[2018-08-25] MEDS: ATORVASTATIN 40 MG TAB PO SCH (08:06)
[2018-08-25] MEDS: LISINOPRIL 10 MG TAB PO SCH (08:06)
[2018-08-25] MEDS: CLOPIDOGREL BISULFATE 75 MG TAB PO SCH (08:06)
[2018-08-25] MEDS ORDERED: METOPROLOL SUCC 50MG EXT REL TAB PO SCH (09:00)
--- NOTE | 2018-08-25 11:26 | Discharge Summary ---
Date of Service August 25, 2018 Admission HPI Per Admitting Provider 57 yo M with pMHx HTN, HLD, diet controlled DM, and colon cancer s/p total colectomy in 2009 referred to ED by PCP for CP and t wave inversion on EKG, and found to have elevated troponin 79.0 Patient notes he was at a meeting at work yesterday at 1pm when the pain started. Describes the pain as a heaviness and thumping (NOT pain) in the sternal region without radiation into the neck, jaw or back. He denies associated dyspnea, nausea, diaphoresis, dizziness, headache, but rates the intolerability as 8/10. Symptoms subsided to 3-4/10, but did not resolve in ~1hour. As they did not match symptoms of AK as googled, patient did not act on symptoms - he denies any acute (or chronic) OTC analgesic use. Patient tolerated dinner, and did not note exacerbation of symptoms with position or ambulation, but notes poor sleep due to persistent chest discomfort. At baseline, patient is very active and frequents the gym 3x/week, and has never had similar symptoms. He denies syncope or presyncopal episodes, PND, orthopnea, history of GERD, or decrease in exercise tolerance. In fact, he has been exerciseing/doing more and has had intentional weight loss of 20lb over the last year. Of note, patient is only on 2 antihypertensives meds, chlorthalidone and diltiazem - he had run out of the diltiazem and was only taking the chlorthalidone over the last month. Up until yesterday, patient has been in good health and denies recent URI sx, reports good water intake, denies constitutional symptoms, abdominal pain, urinary symptoms, or changes in skin/rashes. In the ED, the patient received ASA 325mg, NG x 2 (which completely resolved cardiac symptoms), IVF NSS 1L, K rider x 2. Cardiology was consulted and performed bedside echo. PMHx: HTN, diet controlled DM, CKDIII, HLD, PSHx: Total colectomy 2009, multiple lithotripsy for kidney stones, hernia repair FHx: HTN and colon cancer in mom, and renal cancer in dad. He denies FHx of AK/CVA. SHx: Lives alone. No kids. Never smoker. Rare EtOH use. No recreational drug use. Principal Diagnosis NSTEMI Discharge Exam Constitutional WD/WN, vitals as above average body habitus; no acute distress and not ill appearing Eyes no conjunctival abnormality and no scleral abnormality ENMT external ear and nose normal, oropharynx normal Neck trachea midline, no thyromegaly Respiratory normal respiratory effort, lungs clear to auscultation no cough Auscultation: no crackles and no wheezes Cardiovascular RRR, no murmur, no edema Heart Sounds: normal S1 and normal S2; no murmur Vessels: normal peripheral pulses; no JVD and no carotid bruit Extremities: normal capillary refill; no calf tenderness, no edema and no varicosities Chest (Breasts) Chest: normal inspection of chest Gastrointestinal (Abdomen) normal bowel sounds, soft, nontender, no hepatosplenomegaly Percussion/Palpation: no guarding and abdomen not rigid Musculoskeletal Head/Neck/Chest: normocephalic, head atraumatic and neck supple Extremities: extremities normal to inspection Skin no rashes, warm and dry Neurologic normal touch/pain/proprioception, CN's II-XI intact bilaterally and moves all extremities; no focal motor deficits Psychiatric A+Ox3, euthymic affect Insight: good insight Lymphatic no cervical lymphadenopathy Discharge Data Allergies Allergy/AdvReac Type Severity Reaction Status Date / Time No Known Allergies Allergy Mild Unverified 08/23/18 12:51 Consultations 08/23/18 14:31 ED Decision to Admit Stat 08/23/18 15:06 Consult Cardiology Routine 08/23/18 15:09 Consult Case Management - Discharge Planning Routine 08/23/18 17:09 Consult Cardiac Rehabilitation Routine Procedures Performed Operation Date: 08/23/18 16:00 Actual Procedures p Cath, Left with Cors and Vent - Jose A Aquino MD s Cineradiography w/Routine Exam - Jose A Aquino MD Ordered Studies 08/23/18 16:15 CL Cath Imgs for PACS use only Urgent Hospital Course (1) NSTEMI (non-ST elevated myocardial infarction): 57 yo M with pMHx HTN, HLD, diet controlled DM, and colon cancer s/p total colectomy in 2009 referred to ED by PCP for CP and t wave inversion on EKG, and admitted with NSTEMI and elevated troponin 79.0 NSTEMI Echo regional wall motion abnormality, ++LVH Cardiac cath revealed non-obstructive CAD, nl LVEDP, no Discharged with once daily meds: aspirin 81mg, clopidogrel 75mg x 1 year, atorvastatin 80mg, metoprolol succ 50mg, lisinopril 10mg, and PRN nitro SL Recommend cardiac rehab Elevated serum creatinine on bkgd of CKD III Baseline creatinine ~1.5, admission creatinine 2.03 Resolved to baseline with IVF Hypokalemia Possibly related to chlorthalidone use vs chronic GI loss 2/2 colectomy with i ntermittent diarrheal episodes - Check BMP to monitor with goal >4.0 HTN - Stop home meds (chlorthalidone 25mg daily and diltiazem XR 240mg daily) - Titrate metoprolol and lisinopril as appropriate HLD Nov 2017: chol 178, LDL 114, HDL 44, TG 101 This visit: chol 145, LDL 77, HDL 46, TG 112 - Initiated high dose atorvastatin 80mg DMII, diet controlled A1C this visit: 5.5. - Mediteranian diet discussed Status: FULL CODE (2) Elevated serum creatinine: (3) Hypokalemia: (4) Chronic kidney disease: (5) Hypertension: (6) Dyslipidemia: (7) Diabetes mellitus type 2, diet-controlled: Total Time Total Time Spent Total Time Spent (In Minutes): Less than 30 Discharge Plan Discharge Items Patient Disposition: Home - Self-Care Reason For Visit: NSTEMI Discharge Diagnosis: Heart attack Condition: Good Discharge Goals: Improve disease control and Improve function Activity: Per 'Additional Instructions' section Non-emergency contact: Primary Care Provider and Transmitter Chief Call non-emergency contact if: you have any medication questions and your symptoms worsen Follow-up/Referrals: Jose A Aquino MD [Physician] - 09/11/18 11:00 am (Please, follow up at [facility] Cardiology Office with Dr. Herminio Aquino on TuesdaySeptember 11 at 11:00 am. *The office is located in [address] of [facility]. This is the big building located next to this hospital. If you need to change this appointment, call the office at [phone].) Alex Sol, [Primary Care Provider] - 08/28/18 12:50 pm (NOTE THE LOCATION OF THE PHYSICIAN'S OFFICE Please, follow up with Dr. Sol's associate, Dr. Uziel Conner, on TuesdayAugust 28 at 12:50 pm. THE OFFICE IS LOCATED IN THE [facility]. THE ADDRESS IS [address] [place] [address] [place]. If you need to change this appointment, call the office at [phone].) Diet: Carb Consistent or DM2 and Heart Healthy Addtl Provider Instructions: After a heart attack, we do everything we can to avoid a second one. This includes medications and lifestyle modifications: Medications: 1) Baby aspirin 81mg daily - let your PCP know if you have any tummy pain or dark stools as aspirin can sometimes irritate some people's stomach. 2) Clopidogrel (Plavix) 75 mg daily - the hope will be to discontinue this after 1 year, as long as there is no reason to stop sooner or prolong usage. 3) Metoprolol succinate 50mg daily and lisinopril 10mg daily for blood pressure control - stop your previous medications (diltiazem and chlorthalidone) - follow up with your PCP/tour operator to help determine if medication doses need to be adjusted. 4) Atorvastatin 80mg daily - this is for plaque stabilization and risk optimization 5) Sublingual nitroglycerin - Take for recurrent chest discomfort symptoms, can take a second dose in 5min, and if still no resolution of symptoms, or even if symptoms resolves, recommend seeking medical attention if noticing increased need for this med Lifestyle: 1) Diet - recommend Mediterranean diet, as discussed. Lots of vegetables, limit processed foods/refined sugars 2) Exercise - Take it easy for the next week or so, participate in cardiac rehabilitation before resuming your previous exercise regimen Follow ups with your PCP and cardiology as arranged for you. Follow with nephrology also recommended non-urgently. Thank you for allowing us to participate in your care. ACTIVITY RECOMMENDATIONS: Excess manipulation of the wrist should be avoided for the next 24-48 hours. * No lifting over 2 pounds (approximately a 1/2 gallon of milk) with the utilized arm for 24 hours. * No strenuous activity such as bowling or tennis for 3 days. * Keep the site of the procedure covered with a bandage for 24 hours. *You may shower the day after the procedure. Do not take a tub bath or submerge the puncture site in water for the next 3 days. *Do not operate any motorized equipment for 3 days. SPECIAL CARE INSTRUCTIONS: The site may be slightly bruised and sore following your procedure. Should any of the following occur, contact the Dr. who performed your procedure. 1. Redness/inflammation, swelling, chills, or fever, or colored drainage at procedure site within 3-7 days after your procedure. 2. Coldness, discoloration, ongoing numbness, severe pain, or swelling. Expect mild tingling of hand and tenderness at the puncture site for up to three days. If this persists beyond three days, or other symptoms develop, notify the Dr. who performed your procedure. BLEEDING: If the procedure site on your wrist begins to bleed, do not panic 1. Place 1 or 2 fingers firmly just slightly above the insertion site to stop the bleeding. You may be able to feel your pulse as you hold pressure. 2. Lift your finger after 5 minutes to see if the bleeding has stopped. 3. Once the bleeding has stopped, gently wipe the wrist area clean with a bandage. * If the bleeding from your wrist does not stop after 10 minutes, or if there is a large amount of bleeding or spurting, call 911 (do not drive yourself to the hospital). SKIN IRRITATION: * You may experience some redness and/or swelling in the area where radiation was administered. If any skin irritation occurs, please contact your family physician. FOLLOW UP VISIT: Keep any scheduled doctor appointments. Prescriptions: New atorvastatin 40 mg Tablet 80 mg PO QAM Qty: 30 RF: 0 metoprolol succinate 50 mg Tablet Extended Release 24 Hr 50 mg PO QAM Qty: 30 RF: 0 clopidogrel 75 mg Tablet 75 mg PO QAM Qty: 30 RF: 0 lisinopril 10 mg Tablet 10 mg PO QAM Qty: 30 RF: 0 nitroglycerin [Nitrostat] 0.4 mg Tablet, Sublingual 0.4 mg sublingual UD PRN (Reason: chest pain) Qty: 30 RF: 0 aspirin [Ecotrin Low Strength] 81 mg Tablet,Delayed Release (Dr/Ec) 81 mg PO QAM Qty: 30 RF: 0 Discontinued diltiazem HCl [DILT-XR] 240 mg capsule,ext.rel 24h degradable 240 mg PO DAILY RF: 0 Stand-Alone Forms: [facility] Discharge Orders: Discharge Order (Routine); Ordered 08/25/18 Ordered By: Lara Leos Admission Data Admit Date/Time: 08/23/18 15:07 Attending Provider: Mark Ennis Admit Provider: Lara Leos Primary Care Provider: Alex Sol Other Providers: Jose A Aquino ; Alia Pimentel Service: Telemetry Other Interventions: Discharge Summary Assessment (RN) Last Done: 08/25/18 11:53 DC Date/Time DO NOT enter until pt leaves facility: 08/25/18 12:37 Supervising Physician Co-Signing Physician Notes I personally examined the patient and verified all villarreal points of history and exam, discussed case, and agree with decision making with Dr Leos. Feeling better. Feeling up to going home. Reiterated medications and lifestyle. He offered good understanding. Vitals noted, in general he is awake and alert pleasant no distress. HEENT normal cephalic atraumatic mucous members moist. Breathing unlabored no accessory muscle use good effort. Skin shows no rashes no pallor or icterus. NSTEMIstable for home. Med management lifestyle changes above. Resident Activity Tracking Resident Involvement: Resident Care Provided Care Provided: Adult Hospital Medicine
== END 2018-08-25 12:37 | disposition home or self-care (01) | DRG 282 ==
LOC: ED 11:52 → 2S 15:07

== ENCOUNTER 2018-08-28 15:08 | Inpatient (IN) ==
[2018-08-28] MEDS ORDERED: SODIUM CHLORIDE 0.9% 500 ML IV SCH (15:30)
[2018-08-28 15:39] LABS: Basophils # (auto) 0.02 K/uL (0-0.2); Basophils % (auto) 0.2 %; Eosinophils # (auto) 0.08 K/uL (0-0.5); Eosinophils % (auto) 0.7 %; Hematocrit (blood only) 53.7 % (42-52); Hemoglobin 19.2 g/dL (14.0-18.0); Immature Granulocytes # (auto) 0.03 K/uL (0.00-0.02); Immature Granulocytes % (auto) 0.3 %; Lymphocytes # (auto) 1.33 K/uL (1.2-3.4); Lymphocytes % (auto) 11.6 %; Mean Corpuscular Hgb Conc 35.8 g/dL (32-36); Mean Corpuscular Volume 86.9 fL (80-100); Mean Platelet Volume 10.5 fL (7.4-10.4); Monocytes # (auto) 0.51 K/uL (0.11-0.59); Monocytes % (auto) 4.5 %; Neutrophils # (auto) 9.45 K/uL (1.4-6.5); Neutrophils % (auto) 82.7 %; Platelet Count 219 K/uL (130-400); RDW Coefficient of Variation 14.1 % (11.5-14.5); RDW Standard Deviation 44.4 fL (36.4-46.3); Red Blood Count 6.18 M/uL (4.7-6.1); White Blood Count 11.42 K/uL (4.8-10.8)
[2018-08-28 15:48] LABS: BUN Creatinine Ratio 19.3 (10-20); Calcium 9.5 mg/dl (8.5-10.1); Creatinine Clr Calc Pharmacy 32.3 ml/min; Est GFR (African American) 26.8; Est GFR (Non-African American) 23.1; Potassium 4.3 mmol/L (3.5-5.1)
[2018-08-28 16:01] LABS: Bilirubin,Total 1.2 mg/dl (0.2-1); Total Protein 7.3 gm/dl (6.4-8.2); Troponin I 1.96 ng/ml (0-0.045)
[2018-08-28 16:02] LABS: Albumin Globulin Ratio 1.2 (0.9-2); Globulin 3.3 gm/dl (2.5-4.0)
--- NOTE | 2018-08-28 16:04 | XRay Report ---
XR chest 1V portable CLINICAL HISTORY: 57 years-old Male presenting with low BP, syncope. TECHNIQUE: Portable upright AP view of the chest was obtained. COMPARISON: 08/23/2018. FINDINGS: Atherosclerosis of the aortic arch. Cardiac silhouette mildly enlarged. No focal opacity. No large ef fusion or pneumothorax. Degenerative changes of the thoracic spine. Upper abdomen normal. IMPRESSION: 1. Mild cardiomegaly. No other convincing evidence of acute cardiopulmonary disease. Electronically signed by: Reinaldo Lora M.D. 08/28/2018 4:03 PM
[2018-08-28] MEDS ORDERED: SODIUM CHLORIDE 0.9% 250 ML IV ONE (17:31)
--- NOTE | 2018-08-28 20:12 | History & Physical Report ---
Date of Service August 28, 2018 Assessment & Plan (1) Hypotension: Patient with hypotension on arrival, BP 90/59, +dizziness reported with positional changes. Most likely secondary to medication effects as well as dehydration. -Observation to medical floor -Hold Metoprolol and Lisinopril -Check orthostatic VS -NSS at 125mL/hr x 2 liters -Consider resuming medications at a lower dose Present on Admission?: Yes (2) Acute kidney injury: BUN=56, Cr=2.9 up from 17 and 1.36, respectively. Patient reports making adequate amount of clear yellow urine. MERCED most likely multifactorial, underlying CKD +dehydration +medication effects -Observation to medical floor -Check urine Na and Cr to calculate FeNa -Check CK total - patient recently started on statin -Check UA -NSS 125mL/hr x 2 liters -Repeat BMP in AM -Avoid nephrotoxic agents, renal dosing where appropriate for CrCl of 32 Present on Admission?: Yes (3) Dehydration: Patient with hemoconcentration on CBC, dehydration -NSS as above -CBC in AM Present on Admission?: Yes (4) CAD (coronary artery disease), [place] coronary artery: CAD s/p NSTEMI 5 days ago. Patient presently CP free, no EKG evidence of acute ischemia. Elevated troponin=1.94, most likely resolving from prior NSTEMI -Continue ASA and Plavix -Continue Atorvastatin -Holding Metoprolol in setting of hypotension -Holding Lisinopril in setting of MERCED Present on Admission?: Yes (5) Diabetes mellitus type 2, diet-controlled: Blood sugar presently 129. TlO0g=8.5 -CC diet as tolerated Present on Admission?: Yes (6) Dyslipidemia: Chronic -Continue Atorvastatin -Check CK (7) Hypertension: Patient presently hypotensive -Holding BP meds as above -Continue to monitor F/E/N - NSS at 125mL/hr x 2 liters, monitor electrolytes and replete as needed, CC/Heart healthy diet as tolerated Ppx - Low risk for DVT, encourage ambulation Code - Full per discussion Dispo - Observation to medical floor History of Present Illness Chief Complaint: Syncope, MERCED Primary Care Provider: Alex Sol DO Mr. Castro is a 57yo C male with history of DM, HTN, HLP and colon cancer s/p resection in 2009. He was recently admitted on 08/23 with an NSTEMI. He had a cardiac catheterization performed which revealed nonobstructive CAD. He was discharged home on 08/25/18 on ASA, Plavix, Atorvastatin, Metoprolol and Lisinopril. He reports compliance with his medications and overall feeling well. Today he had a followup appointment with his PCP. He felt well during the appointment but as he was checking out he became dizzy and passed out. He laid down to rest in the office but continued to feel dizzy upon standing so he was sent to the ER. Patient with mildly low BP in the ER, 98/72. Laboratory workup revealed elevated BUN and Cr, 56 and 2.9, respectively. Patient presently with no additional complaints. Reports adequate oral intake. He de nies CP/palpitations/SOB/cough/orthopnea/fevers/chills. Denies abdominal pain/nausea/vomiting/diarrhea or constipation. ER Course: NSS Allergies Allergy/AdvReac Type Severity Reaction Status Date / Time No Known Allergies Allergy Verified 08/28/18 15:46 Home Medications Home Medications Medication Instructions Recorded Confirmed Type aspirin [Ecotrin Low Strength] 81 mg PO QAM #30 tab 08/25/18 08/28/18 Rx atorvastatin 80 mg PO QAM #30 tab 08/25/18 08/28/18 Rx clopidogrel 75 mg PO QAM #30 tab 08/25/18 08/28/18 Rx lisinopril 10 mg PO QAM #30 tab 08/25/18 08/28/18 Rx metoprolol succinate 50 mg PO QAM #30 tab 08/25/18 08/28/18 Rx nitroglycerin [Nitrostat] 0.4 mg SUBLINGUAL UD PRN #30 tab 08/25/18 08/28/18 Rx Past Med/Surg History Medical History Colon cancer (Resolved) Diabetes mellitus type 2, diet-controlled (Chronic) Gout (Chronic) Chronic kidney disease (Chronic) Dyslipidemia (Chronic) Kidney stones (Chronic) Hypertension (Chronic) Surgical History H/O total colectomy (Resolved) History of lithotripsy (Resolved) History of hernia repair Family History Other Cancer Social History Preferred Language: Stateless Communication Ability: Effective Beliefs That Will Affect Care: None marital status: Single Current Living Situation: Alone current occupational status: employed Feels Safe at Home: Yes Smoking Status: Never smoker Review of Systems Review of Systems: All systems reviewed & are unremarkable except as noted in HPI & below Physical Exam Physical Exam: General: patient resting comfortably, NAD, non-toxic in appearance, AA&O x 4 Skin: warm, dry, intact, no rashes or lesions HEENT: NC/AT, PERRL, EOMI, anicteric sclera, conjunctiva without injection, external ear normal to inspection and nontender, nares patent, moist mucus membranes, dentition intact, no oropharyngeal lesions, neck supple, trachea midline, no LAD, no thyromegaly, no JVD Heart: +S1/S2, regular, no m/r/g Lungs: equal air entry bilaterally, no rales/rhonchi/wheezes Abd: +BS, soft, NT/ND, no masses/organomegaly/ascites Ext: warm, 2+ pulses in UE/LE bilaterally, no clubbing/cyanosis or edema Neuro: nonfocal, patient AA&O x 4, speech intact, no facial droop, moving all extremities on command with equal strength 5/5 Results & Data Vital Signs (Past 12 Hours) Vital Signs Temp Pulse Pulse Resp BP BP Pulse Ox 08/28/18 18:33 74 20 98/72 L 97 08/28/18 17:46 75 25 H 105/61 95 08/28/18 17:11 75 24 95/67 L 96 08/28/18 17:10 65 21 90/59 L 97 08/28/18 15:05 36.6 C 67 19 95/61 L 98 Laboratory Results Lab Results 08/28/18 08/28/18 Range/Units 15:24 15:24 WBC 11.42 H (4.8-10.8) K/uL RBC 6.18 H (4.7-6.1) M/uL Hgb 19.2 H (14.0-18.0) g/dL Hct 53.7 H (42-52) % MCV 86.9 (80-100) fL MCH 31.1 (25-34) pg MCHC 35.8 (32-36) g/dL RDW Std Deviation 44.4 (36.4-46.3) fL RDW Coeff of Karla 14.1 (11.5-14.5) % Plt Count 219 (130-400) K/uL MPV 10.5 H (7.4-10.4) fL Immature Gran % (Auto) 0.3 % Neut % (Auto) 82.7 % Lymph % (Auto) 11.6 % [place] % (Auto) 4.5 % Eos % (Auto) 0.7 % Baso % (Auto) 0.2 % Immature Gran # (Auto) 0.03 H (0.00-0.02) K/uL Neut # (Auto) 9.45 H (1.4-6.5) K/uL Lymph # (Auto) 1.33 (1.2-3.4) K/uL [place] # (Auto) 0.51 (0.11-0.59) K/uL Eos # (Auto) 0.08 (0-0.5) K/uL Baso # (Auto) 0.02 (0-0.2) K/uL Sodium 141 (136-145) mmol/L Potassium 4.3 (3.5-5.1) mmol/L Chloride 108 H (98-107) mmol/L Carbon Dioxide 25 (21-32) mmol/L Anion Gap 8.0 (3-11) BUN 56 H (7-18) mg/dl Creatinine 2.90 H (0.6-1.4) mg/dl Est Cr Clr Drug Dosing 32.3 ml/min Est GFR ( Amer) 26.8 Est GFR (Non-Af Amer) 23.1 BUN/Creatinine Ratio 19.3 (10-20) Glucose 129 H (70-99) mg/dl Calcium 9.5 (8.5-10.1) mg/dl Total Bilirubin 1.2 H (0.2-1) mg/dl AST 21 (15-37) U/L ALT 41 (12-78) U/L Alkaline Phosphatase 96 (45-117) U/L Troponin I 1.960 H* (0-0.045) ng/ml Total Protein 7.3 (6.4-8.2) gm/dl Albumin 4.0 (3.4-5.0) gm/dl Globulin 3.3 (2.5-4.0) gm/dl Albumin/Globulin Ratio 1.2 (0.9-2) Diagnostic Findings XR chest 1V portable CLINICAL HISTORY: 57 years-old Male presenting with low BP, syncope. TECHNIQUE: Portable upright AP view of the chest was obtained. COMPARISON: 08/23/2018. FINDINGS: Atherosclerosis of the aortic arch. Cardiac silhouette mildly enlarged. No focal opacity. No large effusion or pneumothorax. Degenerative changes of the thoracic spine. Upper abdomen normal. IMPRESSION: 1. Mild cardiomegaly. No other convincing evidence of acute cardiopulmonary disease. Electronically signed by: Reinaldo Lora M.D. 08/28/2018 4:03 PM Dictated: 08/28/18 1602 Transcribed: 08/28/18 1602 ECG Additional Comments: The study shows NSR at 69bpm, left axis deviation, XR=502, FMD=899, QHo=014, LVH, no acute ischemic changes, no change from prior Code Status & VTE Plan Code Status FULL VTE Prophylaxis Plan VTE Prophylaxis will be ordered: No Critical Care Time Critical Care Time: No (1) Hypotension Hypotension type: orthostatic hypotension Qualified Code(s): I95.1 - Orthostatic hypotension (2) CAD (coronary artery disease), [place] coronary artery [place] vs. transplanted heart: [place] heart Associated angina: without angina Qualified Code(s): I25.10 - Atherosclerotic heart disease of [place] coronary artery without angina pectoris (3) Hypertension Hypertension type: essential hypertension Qualified Code(s): I10 - Essential (primary) hypertension
[2018-08-28] MEDS: SODIUM CHLORIDE 0.9% 1000ML 1,000 ML IV SCH (21:07)
[2018-08-28 21:45] LABS: BUN Creatinine Ratio 23.9 (10-20); Calcium 9.5 mg/dl (8.5-10.1); Creatinine Clr Calc Pharmacy 41.1 ml/min; Est GFR (African American) 35.8; Est GFR (Non-African American) 30.9; Magnesium 2.2 mg/dl (1.8-2.4); Potassium 3.9 mmol/L (3.5-5.1)
[2018-08-28 21:48] LABS: Phosphorus 4.3 mg/dl (2.5-4.9)
--- NOTE | 2018-08-29 00:32 | Emergency Department Note ---
Entered by Corie Temple acting as a scribe for History of Present Illness General Chief complaint: Hypotension Stated complaint: hypotension Source: patient Mode of arrival: EMS Limitations: no limitations History of Present Illness Onset (ago): hour(s) 2 Location: head Radiation: non-radiation Pain Consistency: + now resolved Relieved By: + none Exacerbated By: + none Associated symptoms: + other (-diarrhea); no chest pain and no nausea/vomiting Treatments prior to arrival: none The patient is a 57 year old male who presents to the ED with complaints of syncope. He was brought to the ED via EMS. He states he was at a follow up appointment with his PCP, Dr. Conner, today when he began to feel dizzy and experienced a syncopal episode. He was sitting down in a chair during the episode and denies any head injuries or sustaining other injuries. The patient notes he was at the appointment to follow up from an NSTEMI that he experienced on August 23. He underwent a cardiac catheterization and had no stents placed, but was placed on several new medications. He states he now takes daily Atorvastatin, Metoprolol, Plavix, Lisinopril, Nitroglycerin as needed and Aspirin. This is his 3rd day taking the new medications. He denies any recent falls, chest pain, vomiting or diarrhea. He notes he did feel fine this morning and was able to work a half day up until his appointment at noon today. He ate strawberries and a banana for breakfast. Home Medications Home Medications Medication Instructions Recorded Confirmed Type aspirin [Ecotrin Low Strength] 81 mg PO QAM #30 tab 08/25/18 08/28/18 Rx atorvastatin 80 mg PO QAM #30 tab 08/25/18 08/28/18 Rx clopidogrel 75 mg PO QAM #30 tab 08/25/18 08/28/18 Rx nitroglycerin [Nitrostat] 0.4 mg SUBLINGUAL UD PRN #30 tab 08/25/18 08/28/18 Rx metoprolol succinate 25 mg PO QAM 30 Days #30 tab 08/30/18 Rx Allergies Allergy/AdvReac Type Severity Reaction Status Date / Time No Known Allergies Allergy Verified 08/28/18 15:46 Past Med/Surg History Medical History Colon cancer (Resolved) Diabetes mellitus type 2, diet-controlled (Chronic) Gout (Chronic) Chronic kidney disease (Chronic) Dyslipidemia (Chronic) Kidney stones (Chronic) Hypertension (Chronic) Surgical History H/O total colectomy (Resolved) History of lithotripsy (Resolved) History of hernia repair Family History Other Cancer Social History Preferred Language: Kyrgyz Communication Ability: Effective Inspector Glass Or Mirror Required: No Beliefs That Will Affect Care: None marital status: Single Current Living Situation: Alone current occupational status: employed Other Information That Helps Us Care for You: No Feels Safe at Home: Yes Safety Concerns: Feels Safe At This Time Smoking Status: Never smoker Do You Dip or Chew Tobacco: No Hx Alcohol Use: No Hx Substance Use: No Review of Systems See HPI for pertinent positives & negatives. and A total of 10 systems reviewed and were otherwise negative Physical Exam Vital Signs Vital Signs - 24 hr 08/28/18 15:05 08/28/18 15:41 08/28/18 17:10 Temperature 36.6 C Temperature Source Oral Sepsis Recent Fever Within 48 Hours No Sepsis New/Unexplained Change in Mental Status No Sepsis Action Taken by Nursing No Action Required Pulse Rate - Lying 72 Pulse Rate - Sitting 78 Pulse Rate - Standing 89 Pulse Rate 67 Pulse Rate [Left Finger] 65 Pulse Rhythm [Left Finger] Regular Respiratory Rate 19 21 Respiratory Effort / Characteristics Non-Labored Non-Labored Respiratory Depth Normal Normal Respiratory Pattern Regular Regular Blood Pressure - Lying 86/64 L Blood Pressure - Sitting 94/65 L Blood Pressure- Standing 91/48 L Blood Pressure 95/61 L Blood Pressure [Left Arm] 90/59 L Blood Pressure Mean 72 Blood Pressure Mean [Left Arm] 69 Pulse Oximetry 98 97 Oxygen Delivery Method Room Air Room Air 08/28/18 17:11 08/28/18 17:46 08/28/18 18:33 Temperature Temperature Source Sepsis Recent Fever Within 48 Hours Sepsis New/Unexplained Change in Mental Status Sepsis Action Taken by Nursing Pulse Rate - Lying Pulse Rate - Sitting Pulse Rate - Standing Pulse Rate Pulse Rate [Left Finger] 75 75 74 Pulse Rhythm [Left Finger] Regular Regular Regular Respiratory Rate 24 25 H 20 Respiratory Effort / Characteristics Non-Labored Non-Labored Non-Labored Respiratory Depth Normal Normal Normal Respiratory Pattern Regular Regular Regular Blood Pressure - Lying Blood Pressure - Sitting Blood Pressure- Standing Blood Pressure Blood Pressure [Left Arm] 95/67 L 105/61 98/72 L Blood Pressure Mean Blood Pressure Mean [Left Arm] 76 75 80 Pulse Oximetry 96 95 97 Oxygen Delivery Method Room Air Room Air Room Air Patient is noted to be hypotensive. General: Well-appearing 57 year old male, in no significant distress. HEENT: No scleral icterus, PERRLA, neck supple. Atraumatic. Cardiovascular: Regular rate and rhythm, no extra sounds. Pulmonary: Clear to auscultation bilaterally, normal work of breathing. Abdomen: Soft, nontender, nondistended, positive bowel sounds. Musculoskeletal: Atraumatic, no peripheral edema. Neurologic: Patient awake alert and oriented x 3, full strength in all 4 extremities. Cranial nerves 2 through 12 grossly intact. Skin: Warm, dry, no rash Course 1525: The patient was evaluated in room B10 and a complete history and physical were performed. 1621: Nursing informed me the patients Troponin is elevated. 1729: I reevaluated the patient and his blood pressure is now up and he is feeling great. I discussed my recommendation that he remains in the hospital for further evaluation and management. The patient verbalized complete understanding and agreement. 1740: I discussed the patients case with Dr. Aquino, [facility]. The patient will be further evaluated. 1801: I discussed the patient's case with Dr. Kerr, [facility]. The patient will be further evaluated. Consultations Consultation #1: I discussed the patients case with Dr. Aquino, [facility]. The patient will be further evaluated. Time: 17:40 Consultation #2: I discussed the patient's case with Dr. Kerr, [facility]. The patient will be further evaluated. Time: 18:01 Administered Medications Discontinued Medications Aspirin (Ecotrin Ectab) 81 mg PO [facility] Stop: 09/28/18 08:59 Last Admin: 08/30/18 08:12 Dose: 81 mg Documented by: [id number] Admin: 08/29/18 09:00 Dose: 81 mg Documented by: [id number] Atorvastatin Calcium (Lipitor) 80 mg PO [facility] Stop: 09/28/18 08:59 Last Admin: 08/30/18 08:11 Dose: 80 mg Documented by: [id number] Admin: 08/29/18 08:59 Dose: 80 mg Documented by: [id number] Clopidogrel Bisulfate (Plavix) 75 mg PO [facility] Stop: 09/28/18 08:59 Last Admin: 08/30/18 08:12 Dose: 75 mg Documented by: [id number] Admin: 08/29/18 08:59 Dose: 75 mg Documented by: [id number] Sodium Chloride (Nss) 500 mls @ 999 mls/hr IV .Q31M JANETH Stop: 08/28/18 16:00 Last Infusion: 08/28/18 16:30 Dose: 0 mls/hr Documented by: [id number] Admin: 08/28/18 15:47 Dose: 999 mls/hr Documented by: [id number] Sodium Chloride (Nss) 250 mls @ 999 mls/hr IV .Q16M ONE Stop: 08/28/18 17:46 Last Infusion: 08/28/18 17:59 Dose: 0 mls/hr Documented by: [id number] Admin: 08/28/18 17:42 Dose: 999 mls/hr Documented by: [id number] Sodium Chloride (Nss 1000ml) 1,000 mls @ 125 mls/hr IV .Q8H [facility] Stop: 08/29/18 12:46 Last Infusion: 08/29/18 12:49 Dose: 0 mls/hr Documented by: [id number] Admin: 08/29/18 04:49 Dose: 125 mls/hr Documented by: [id number] Infusion: 08/29/18 04:49 Dose: 125 mls/hr Documented by: [id number] Admin: 08/28/18 21:07 Dose: 125 mls/hr Documented by: [id number] Metoprolol Succinate ([facility]rol Xl) [facility] Stop: 09/28/18 08:59 Last Admin: 08/30/18 08:12 Dose: 25 mg Documented by: [id number] Admin: 08/29/18 11:48 Dose: 25 mg Documented by: [id number] Medical Decision Making Differential Diagnosis Differential diagnoses include Benign positional vertigo, Dehydration, Hypovolemia, Anemia, Tumor, Infection, Hypoglycemia, Electrolyte abnormalities, Cardiac sources, Intracerebral event, Toxicologic, Neurologic, medication effect as well as others were entertained. Medical Records Attestation: I reviewed the patient's medical records. Home Medications Current Medication List: was personally reviewed by me Laboratory Data Attestation: I reviewed the patient's lab results. Result diagrams: 08/30/18 05:39 08/30/18 05:39 Lab Results 08/28/18 08/28/18 08/28/18 Range/Units 15:24 15:24 15:24 WBC 11.42 H (4.8-10.8) K/uL RBC 6.18 H (4.7-6.1) M/uL Hgb 19.2 H (14.0-18.0) g/dL Hct 53.7 H (42-52) % MCV 86.9 (80-100) fL MCH 31.1 (25-34) pg MCHC 35.8 (32-36) g/dL RDW Std Deviation 44.4 (36.4-46.3) fL RDW Coeff of Karla 14.1 (11.5-14.5) % Plt Count 219 (130-400) K/uL MPV 10.5 H (7.4-10.4) fL Immature Gran % (Auto) 0.3 % Neut % (Auto) 82.7 % Lymph % (Auto) 11.6 % Sampson % (Auto) 4.5 % Eos % (Auto) 0.7 % Baso % (Auto) 0.2 % Immature Gran # (Auto) 0.03 H (0.00-0.02) K/uL Neut # (Auto) 9.45 H (1.4-6.5) K/uL Lymph # (Auto) 1.33 (1.2-3.4) K/uL Sampson # (Auto) 0.51 (0.11-0.59) K/uL Eos # (Auto) 0.08 (0-0.5) K/uL Baso # (Auto) 0.02 (0-0.2) K/uL Sodium 141 (136-145) mmol/L Potassium 4.3 (3.5-5.1) mmol/L Chloride 108 H (98-107) mmol/L Carbon Dioxide 25 (21-32) mmol/L Anion Gap 8.0 (3-11) BUN 56 H (7-18) mg/dl Creatinine 2.90 H (0.6-1.4) mg/dl Est Cr Clr Drug Dosing 32.3 ml/min Est GFR ( Amer) 26.8 Est GFR (Non-Af Amer) 23.1 BUN/Creatinine Ratio 19.3 (10-20) Glucose 129 H (70-99) mg/dl Calcium 9.5 (8.5-10.1) mg/dl Phosphorus (2.5-4.9) mg/dl Magnesium (1.8-2.4) mg/dl Total Bilirubin 1.2 H (0.2-1) mg/dl AST 21 (15-37) U/L ALT 41 (12-78) U/L Alkaline Phosphatase 96 (45-117) U/L Total Creatine Kinase (39-308) U/L Troponin I 1.960 H* (0-0.045) ng/ml Total Protein 7.3 (6.4-8.2) gm/dl Albumin 4.0 (3.4-5.0) gm/dl Globulin 3.3 (2.5-4.0) gm/dl Albumin/Globulin Ratio 1.2 (0.9-2) Urine Color Urine Appearance (Clear) Urine pH (4.5-7.5) Ur Specific [place] (1.000-1.030) Urine Protein (Negative) Urine Glucose (UA) (Negative) Urine Ketones (Negative) Urine Blood (Negative) Urine Nitrite (Negative) Urine Bilirubin (Negative) Urine Urobilinogen (Negative) Ur Leukocyte Esterase (Negative) Ur Random Creatinine Ur Random Sodium mmol/L Hepatitis C Ab Screen Neg (Neg) 08/28/18 08/29/18 08/29/18 Range/Units 21:04 04:55 04:55 WBC (4.8-10.8) K/uL RBC (4.7-6.1) M/uL Hgb (14.0-18.0) g/dL Hct (42-52) % MCV (80-100) fL MCH (25-34) pg MCHC (32-36) g/dL RDW Std Deviation (36.4-46.3) fL RDW Coeff of Karla (11.5-14.5) % Plt Count (130-400) K/uL MPV (7.4-10.4) fL Immature Gran % (Auto) % Neut % (Auto) % Lymph % (Auto) % Sampson % (Auto) % Eos % (Auto) % Baso % (Auto) % Immature Gran # (Auto) (0.00-0.02) K/uL Neut # (Auto) (1.4-6.5) K/uL Lymph # (Auto) (1.2-3.4) K/uL Sampson # (Auto) (0.11-0.59) K/uL Eos # (Auto) (0-0.5) K/uL Baso # (Auto) (0-0.2) K/uL Sodium 140 (136-145) mmol/L Potassium 3.9 (3.5-5.1) mmol/L Chloride 110 H (98-107) mmol/L Carbon Dioxide 20 L (21-32) mmol/L Anion Gap 10.0 (3-11) BUN 55 H (7-18) mg/dl Creatinine 2.28 H D (0.6-1.4) mg/dl Est Cr Clr Drug Dosing 41.1 ml/min Est GFR ( Amer) 35.8 Est GFR (Non-Af Amer) 30.9 BUN/Creatinine Ratio 23.9 H (10-20) Glucose 122 H (70-99) mg/dl Calcium 9.5 (8.5-10.1) mg/dl Phosphorus 4.3 (2.5-4.9) mg/dl Magnesium 2.2 (1.8-2.4) mg/dl Total Bilirubin (0.2-1) mg/dl AST (15-37) U/L ALT (12-78) U/L Alkaline Phosphatase (45-117) U/L Total Creatine Kinase 82 (39-308) U/L Troponin I (0-0.045) ng/ml Total Protein (6.4-8.2) gm/dl Albumin (3.4-5.0) gm/dl Globulin (2.5-4.0) gm/dl Albumin/Globulin Ratio (0.9-2) Urine Color Urine Appearance (Clear) Urine pH (4.5-7.5) Ur Specific [place] (1.000-1.030) Urine Protein (Negative) Urine Glucose (UA) (Negative) Urine Ketones (Negative) Urine Blood (Negative) Urine Nitrite (Negative) Urine Bilirubin (Negative) Urine Urobilinogen (Negative) Ur Leukocyte Esterase (Negative) Ur Random Creatinine Cancelled 124.0 Ur Random Sodium 29 mmol/L Hepatitis C Ab Screen (Neg) 08/29/18 08/29/18 08/29/18 Range/Units 04:55 06:38 06:39 WBC (4.8-10.8) K/uL RBC (4.7-6.1) M/uL Hgb (14.0-18.0) g/dL Hct (42-52) % MCV (80-100) fL MCH (25-34) pg MCHC (32-36) g/dL RDW Std Deviation (36.4-46.3) fL RDW Coeff of Karla (11.5-14.5) % Plt Count (130-400) K/uL MPV (7.4-10.4) fL Immature Gran % (Auto) % Neut % (Auto) % Lymph % (Auto) % Sampson % (Auto) % Eos % (Auto) % Baso % (Auto) % Immature Gran # (Auto) (0.00-0.02) K/uL Neut # (Auto) (1.4-6.5) K/uL Lymph # (Auto) (1.2-3.4) K/uL Sampson # (Auto) (0.11-0.59) K/uL Eos # (Auto) (0-0.5) K/uL Baso # (Auto) (0-0.2) K/uL Sodium 144 (136-145) mmol/L Potassium 4.3 (3.5-5.1) mmol/L Chloride 116 H (98-107) mmol/L Carbon Dioxide 21 (21-32) mmol/L Anion Gap 7.0 (3-11) BUN 46 H (7-18) mg/dl Creatinine 1.87 H D (0.6-1.4) mg/dl Est Cr Clr Drug Dosing 50.1 ml/min Est GFR ( Amer) 45.6 Est GFR (Non-Af Amer) 39.3 BUN/Creatinine Ratio 24.4 H (10-20) Glucose 100 H (70-99) mg/dl Calcium 8.8 (8.5-10.1) mg/dl Phosphorus (2.5-4.9) mg/dl Magnesium 2.1 (1.8-2.4) mg/dl Total Bilirubin (0.2-1) mg/dl AST (15-37) U/L ALT (12-78) U/L Alkaline Phosphatase (45-117) U/L Total Creatine Kinase (39-308) U/L Troponin I 1.720 H* (0-0.045) ng/ml Total Protein (6.4-8.2) gm/dl Albumin (3.4-5.0) gm/dl Globulin (2.5-4.0) gm/dl Albumin/Globulin Ratio (0.9-2) Urine Color Yellow Urine Appearance Clear (Clear) Urine pH 5.0 (4.5-7.5) Ur Specific [place] 1.023 (1.000-1.030) Urine Protein Negative (Negative) Urine Glucose (UA) Negative (Negative) Urine Ketones Negative (Negative) Urine Blood Negative (Negative) Urine Nitrite Negative (Negative) Urine Bilirubin Negative (Negative) Urine Urobilinogen Negative (Negative) Ur Leukocyte Esterase Negative (Negative) Ur Random Creatinine Ur Random Sodium mmol/L Hepatitis C Ab Screen (Neg) 08/29/18 Range/Units 06:39 WBC 7.43 (4.8-10.8) K/uL RBC 5.14 (4.7-6.1) M/uL Hgb 16.0 D (14.0-18.0) g/dL Hct 45.2 (42-52) % MCV 87.9 (80-100) fL MCH 31.1 (25-34) pg MCHC 35.4 (32-36) g/dL RDW Std Deviation 46.1 (36.4-46.3) fL RDW Coeff of Karla 14.2 (11.5-14.5) % Plt Count 161 (130-400) K/uL MPV 10.2 (7.4-10.4) fL Immature Gran % (Auto) % Neut % (Auto) % Lymph % (Auto) % Sampson % (Auto) % Eos % (Auto) % Baso % (Auto) % Immature Gran # (Auto) (0.00-0.02) K/uL Neut # (Auto) (1.4-6.5) K/uL Lymph # (Auto) (1.2-3.4) K/uL Sampson # (Auto) (0.11-0.59) K/uL Eos # (Auto) (0-0.5) K/uL Baso # (Auto) (0-0.2) K/uL Sodium (136-145) mmol/L Potassium (3.5-5.1) mmol/L Chloride (98-107) mmol/L Carbon Dioxide (21-32) mmol/L Anion Gap (3-11) BUN (7-18) mg/dl Creatinine (0.6-1.4) mg/dl Est Cr Clr Drug Dosing ml/min Est GFR ( Amer) Est GFR (Non-Af Amer) BUN/Creatinine Ratio (10-20) Glucose (70-99) mg/dl Calcium (8.5-10.1) mg/dl Phosphorus (2.5-4.9) mg/dl Magnesium (1.8-2.4) mg/dl Total Bilirubin (0.2-1) mg/dl AST (15-37) U/L ALT (12-78) U/L Alkaline Phosphatase (45-117) U/L Total Creatine Kinase (39-308) U/L Troponin I (0-0.045) ng/ml Total Protein (6.4-8.2) gm/dl Albumin (3.4-5.0) gm/dl Globulin (2.5-4.0) gm/dl Albumin/Globulin Ratio (0.9-2) Urine Color Urine Appearance (Clear) Urine pH (4.5-7.5) Ur Specific [place] (1.000-1.030) Urine Protein (Negative) Urine Glucose (UA) (Negative) Urine Ketones (Negative) Urine Blood (Negative) Urine Nitrite (Negative) Urine Bilirubin (Negative) Urine Urobilinogen (Negative) Ur Leukocyte Esterase (Negative) Ur Random Creatinine Ur Random Sodium mmol/L Hepatitis C Ab Screen (Neg) Imaging Data Radiologist's Impression: Radiology results as stated below per my review and the radiologist's interpretation: XR chest 1V portable CLINICAL HISTORY: 57 years-old Male presenting with low BP, syncope. TECHNIQUE: Portable upright AP view of the chest was obtained. COMPARISON: 08/23/2018. FINDINGS: Atherosclerosis of the aortic arch. Cardiac silhouette mildly enlarged. No focal opacity. No large effusion or pneumothorax. Degenerative changes of the thoracic spine. Upper abdomen normal. IMPRESSION: 1. Mild cardiomegaly. No other convincing evidence of acute cardiopulmonary disease. Electronically signed by: Reinaldo Lora M.D. 08/28/2018 4:03 PM ECG Data Attestation: I personally reviewed and interpreted this ECG as follows: Indication: syncope Rate (beats per minute): 69 Rhythm: sinus rhythm Findings: + other (LVH, QRS widening, T wave abnormality inferior and lateral leads, QTC of 439), + 1st degree AV block and + left axis deviation Blood Pressure Blood Pressure Findings: Low blood pressure MDM Narrative This pt was evaluated and appeared to be in no distress. Pt was noted to be hypotensive. Pt stated this is only day 2 of taking his new medications from recent admit/NSTEMI. IV access was obtained and lab work was drawn. Pt was placed on the environmental monitoring technician. EKG is fairly reassuring, there is no evidence of acute ischemia. Pt was hydrated with NSS. Lab work reveals an elevated BUN and creatinine from recent admission (56/2.9). Pt was feeling well. IV hydration was continued and SBP improved. I suspect the new medications (lisinopril, metoprolol) will need some adjustments. Pt was d/w Dr Miles alvarez. Dr Kerr of of the [facility] hospitalist service will evaluate for further management. Pt is aware of the plan and agrees. Impression & Plan Hypotension, Acute kidney injury, Dehydration, Adverse effects of medication Discharge Plan Visit Data *Final* Discharge Date/Time: 08/28/18 20:23 Chief Complaint: Hypotension Stated Complaint: hypotension ED Provider: Susi Garcia Discharge Problem: Hypotension, Acute kidney injury, Dehydration, Adverse effects of medication Patient Disposition: Admitted As Inpatient Condition: Good Discharge Instructions Interventions: ED Discharge Assessment Last Done: 08/28/18 20:23 Discharge Problem: Hypotension Qualifiers: Hypotension type: orthostatic hypotension Qualified Code(s): I95.1 - Orthostatic hypotension Adverse effects of medication Qualifiers: Encounter type: initial encounter Qualified Code(s): T50.905A - Adverse effect of unspecified drugs, medicaments and biological substances, initial encounter The scribe's documentation has been prepared under my direction and personally reviewed by me in its entirety. I confirm that the note above accurately reflects all work, treatment, procedures, and medical decision making performed by me.
[2018-08-29] MEDS: SODIUM CHLORIDE 0.9% 1000ML 1,000 ML IV SCH (04:49)
[2018-08-29 05:09] LABS: Appearance Urine Clear (Clear); Bilirubin Urine Negative (Negative); Color Urine Yellow; Glucose Urine UA Negative (Negative); Ketones Urine Negative (Negative); Leukocyte Esterase Urine Negative (Negative); Nitrite Urine Negative (Negative); Protein Urine Negative (Negative); Specific Gravity Urine 1.023 (1.000-1.030); Urobilinogen Urine Negative (Negative)
[2018-08-29 08:34] LABS: BUN Creatinine Ratio 24.4 (10-20); Calcium 8.8 mg/dl (8.5-10.1); Creatinine Clr Calc Pharmacy 50.1 ml/min; Est GFR (African American) 45.6; Est GFR (Non-African American) 39.3; Magnesium 2.1 mg/dl (1.8-2.4); Potassium 4.3 mmol/L (3.5-5.1)
[2018-08-29] MEDS: ATORVASTATIN 40 MG TAB PO SCH (08:59)
[2018-08-29] MEDS: CLOPIDOGREL BISULFATE 75 MG TAB PO SCH (08:59)
[2018-08-29] MEDS: ASPIRIN 81 MG ECTAB PO SCH (09:00)
[2018-08-29 09:58] LABS: Hematocrit (blood only) 45.2 % (42-52); Mean Corpuscular Hgb Conc 35.4 g/dL (32-36); Mean Corpuscular Volume 87.9 fL (80-100); Mean Platelet Volume 10.2 fL (7.4-10.4); Platelet Count 161 K/uL (130-400); RDW Coefficient of Variation 14.2 % (11.5-14.5); RDW Standard Deviation 46.1 fL (36.4-46.3); Red Blood Count 5.14 M/uL (4.7-6.1); White Blood Count 7.43 K/uL (4.8-10.8)
[2018-08-29] MEDS: METOPROLOL SUCC 25MG EXT REL TAB PO SCH (11:48)
--- NOTE | 2018-08-29 13:06 | Hospitalist Progress Note ---
Date of Service August 29, 2018 Assessment & Plan (1) Hypotension: - SBP 90's as outpatient and at presentation in the ED -- likely led to dizziness and syncopal episode at PCP office. - Medication induced -- recently started Metoprolol succinate 50 mg daily and Lisinopril 10 mg daily. - BP now slightly improved with SBP 100's. - Received IVFs at 125 cc/hr x 2 bags; will hold further IVFs. - Orthostatic vital signs were negative. - Held beta yonatan and ACEI at admission; will resume Metoprolol at lower dose of 25 mg daily, continue to hold Lisinopril. (2) Syncope: - Likely related to medication induced hypotension; no further episodes of syncope noted. - Treatment of hypotension as noted above. - Most recent TTE showed preserved EF, hypokinetic inferior wall and severe LVH. No significant valvular abnormalities. (3) Dehydration: - Received IV fluids at 125 cc/hr, total of 2 bags. - Renal function improving. (4) Acute kidney injury: - Likely related to dehydration vs. medication induced (ACEI?) vs. possible ATN from hypotension. - FeNa was 0.3%, likely pre-renal; U/a negative. - Holding ACEI due to MERCED and hypotension. - Renal function now improved, is close to baseline with IV fluid hydration. (5) Stage III chronic kidney disease: - Does follow with Dr. Borrero from nephrology. - Renally dose all meds. (6) CAD (coronary artery disease), [place] coronary artery: - S/p NSTEMI, admitted 08/23/18. - Trop is elevated, likely still trending down from previous elevation. - No evidence of acute ischemia during this admission. - Continue aspirin/plavix/statin as prescribed. - Resume Metoprolol at lower dose of 25 mg daily. - Holding Lisinopril in setting of MERCED. (7) Diabetes mellitus type 2, diet-controlled: - Hemoglobin A1C was 5.5. - Heart healthy diet. (8) Dyslipidemia: - Continue statin as prescribed. (9) Hypertension: - Resume Metoprolol at 25 mg daily; holding ACEI due to MERCED and hypotension. - SBP 100's, will monitor. (10) DVT prophylaxis: - Holding DVT ppx; encourage ambulation. Dispo: Med/surg; discharge on 08/30 pending improvement in BP. Supervising Physician Co-Signing Physician Notes Attending Attestation - Chart reviewed, care plan d/w SELINA Nieto. I agree w/ the villarreal components of her documentation. Cardiac/BP med adjustments in process due to hypotension/orthostasis. Recent NSTEMI - no ischemic symptoms at this time. Ted Carvajal MD Subjective Pt. is doing well today. Has not had any further episodes of dizziness or syncope since admission. Denied dizziness at home prior to presenting to PCP yesterday. Denies chest pain, SOB, N/V, diarrhea or constipation. Orthostatics were negative this morning. Will resume beta blockade at lower dose and continue to hold ACEI. Plan for discharge possibly on 08/30 pending blood pressure over next 24 hours. Review of Systems Review of Systems: All systems reviewed & are unremarkable except as noted in HPI & below Constitutional: no fever, no chills, no fatigue, no weakness and no anorexia Respiratory: no cough, no dyspnea, no dyspnea on exertion and no wheezing Cardiovascular: no chest pain, no palpitations, no lightheadedness, no syncope and no edema Gastrointestinal: no abdominal pain, no nausea, no vomiting, no constipation and no diarrhea/loose stools Genitourinary: no difficulty urinating Musculoskeletal: no back pain and no joint pain Integumentary: no non-healing lesions Allergy / Immunological: no rash Physical Exam Physical Exam: General: Resting comfortably in no apparent distress; A&OX3 HEENT: NC/AT; PERRLA with EOMI; [place] conjunctiva, MMM. No erythema of posterior pharynx Neck: Supple and nontender Cardiac: RRR w/o murmurs, gallops or rubs Lungs: CTA bilaterally; No rhonchi, wheezing, or rales Abdomen: Bowel normoactive X 4; Nontender to palpation Extremities: Warm. No edema present Neuro: No focal weakness Skin: No rash Results & Data Vital Signs (Past 12 Hours) Vital Signs Temp Pulse Resp BP Pulse Ox 08/29/18 06:55 36.6 C 63 16 106/71 95 Laboratory Results 08/29/18 08/29/18 08/29/18 Range/Units 06:39 06:39 06:38 WBC 7.43 (4.8-10.8) K/uL RBC 5.14 (4.7-6.1) M/uL Hgb 16.0 D (14.0-18.0) g/dL Hct 45.2 (42-52) % MCV 87.9 (80-100) fL MCH 31.1 (25-34) pg MCHC 35.4 (32-36) g/dL RDW Std Deviation 46.1 (36.4-46.3) fL RDW Coeff of Karla 14.2 (11.5-14.5) % Plt Count 161 (130-400) K/uL MPV 10.2 (7.4-10.4) fL Immature Gran % (Auto) % Neut % (Auto) % Lymph % (Auto) % [place] % (Auto) % Eos % (Auto) % Baso % (Auto) % Immature Gran # (Auto) (0.00-0.02) K/uL Neut # (Auto) (1.4-6.5) K/uL Lymph # (Auto) (1.2-3.4) K/uL [place] # (Auto) (0.11-0.59) K/uL Eos # (Auto) (0-0.5) K/uL Baso # (Auto) (0-0.2) K/uL Sodium 144 (136-145) mmol/L Potassium 4.3 (3.5-5.1) mmol/L Chloride 116 H (98-107) mmol/L Carbon Dioxide 21 (21-32) mmol/L Anion Gap 7.0 (3-11) BUN 46 H (7-18) mg/dl Creatinine 1.87 H D (0.6-1.4) mg/dl Est Cr Clr Drug Dosing 50.1 ml/min Est GFR ( Amer) 45.6 Est GFR (Non-Af Amer) 39.3 BUN/Creatinine Ratio 24.4 H (10-20) Glucose 100 H (70-99) mg/dl Calcium 8.8 (8.5-10.1) mg/dl Phosphorus (2.5-4.9) mg/dl Magnesium 2.1 (1.8-2.4) mg/dl Total Bilirubin (0.2-1) mg/dl AST (15-37) U/L ALT (12-78) U/L Alkaline Phosphatase (45-117) U/L Total Creatine Kinase (39-308) U/L Troponin I 1.720 H* (0-0.045) ng/ml Total Protein (6.4-8.2) gm/dl Albumin (3.4-5.0) gm/dl Globulin (2.5-4.0) gm/dl Albumin/Globulin Ratio (0.9-2) Urine Color Urine Appearance (Clear) Urine pH (4.5-7.5) Ur Specific [place] (1.000-1.030) Urine Protein (Negative) Urine Glucose (UA) (Negative) Urine Ketones (Negative) Urine Blood (Negative) Urine Nitrite (Negative) Urine Bilirubin (Negative) Urine Urobilinogen (Negative) Ur Leukocyte Esterase (Negative) Ur Random Creatinine Ur Random Sodium mmol/L Hepatitis C Ab Screen (Neg) 08/29/18 08/29/18 08/29/18 Range/Units 04:55 04:55 04:55 WBC (4.8-10.8) K/uL RBC (4.7-6.1) M/uL Hgb (14.0-18.0) g/dL Hct (42-52) % MCV (80-100) fL MCH (25-34) pg MCHC (32-36) g/dL RDW Std Deviation (36.4-46.3) fL RDW Coeff of Karla (11.5-14.5) % Plt Count (130-400) K/uL MPV (7.4-10.4) fL Immature Gran % (Auto) % Neut % (Auto) % Lymph % (Auto) % [place] % (Auto) % Eos % (Auto) % Baso % (Auto) % Immature Gran # (Auto) (0.00-0.02) K/uL Neut # (Auto) (1.4-6.5) K/uL Lymph # (Auto) (1.2-3.4) K/uL [place] # (Auto) (0.11-0.59) K/uL Eos # (Auto) (0-0.5) K/uL Baso # (Auto) (0-0.2) K/uL Sodium (136-145) mmol/L Potassium (3.5-5.1) mmol/L Chloride (98-107) mmol/L Carbon Dioxide (21-32) mmol/L Anion Gap (3-11) BUN (7-18) mg/dl Creatinine (0.6-1.4) mg/dl Est Cr Clr Drug Dosing ml/min Est GFR ( Amer) Est GFR (Non-Af Amer) BUN/Creatinine Ratio (10-20) Glucose (70-99) mg/dl Calcium (8.5-10.1) mg/dl Phosphorus (2.5-4.9) mg/dl Magnesium (1.8-2.4) mg/dl Total Bilirubin (0.2-1) mg/dl AST (15-37) U/L ALT (12-78) U/L Alkaline Phosphatase (45-117) U/L Total Creatine Kinase (39-308) U/L Troponin I (0-0.045) ng/ml Total Protein (6.4-8.2) gm/dl Albumin (3.4-5.0) gm/dl Globulin (2.5-4.0) gm/dl Albumin/Globulin Ratio (0.9-2) Urine Color Yellow Urine Appearance Clear (Clear) Urine pH 5.0 (4.5-7.5) Ur Specific [place] 1.023 (1.000-1.030) Urine Protein Negative (Negative) Urine Glucose (UA) Negative (Negative) Urine Ketones Negative (Negative) Urine Blood Negative (Negative) Urine Nitrite Negative (Negative) Urine Bilirubin Negative (Negative) Urine Urobilinogen Negative (Negative) Ur Leukocyte Esterase Negative (Negative) Ur Random Creatinine 124.0 Cancelled Ur Random Sodium 29 mmol/L Hepatitis C Ab Screen (Neg) 08/28/18 08/28/18 08/28/18 Range/Units 21:04 15:24 15:24 WBC (4.8-10.8) K/uL RBC (4.7-6.1) M/uL Hgb (14.0-18.0) g/dL Hct (42-52) % MCV (80-100) fL MCH (25-34) pg MCHC (32-36) g/dL RDW Std Deviation (36.4-46.3) fL RDW Coeff of Karla (11.5-14.5) % Plt Count (130-400) K/uL MPV (7.4-10.4) fL Immature Gran % (Auto) % Neut % (Auto) % Lymph % (Auto) % [place] % (Auto) % Eos % (Auto) % Baso % (Auto) % Immature Gran # (Auto) (0.00-0.02) K/uL Neut # (Auto) (1.4-6.5) K/uL Lymph # (Auto) (1.2-3.4) K/uL [place] # (Auto) (0.11-0.59) K/uL Eos # (Auto) (0-0.5) K/uL Baso # (Auto) (0-0.2) K/uL Sodium 140 141 (136-145) mmol/L Potassium 3.9 4.3 (3.5-5.1) mmol/L Chloride 110 H 108 H (98-107) mmol/L Carbon Dioxide 20 L 25 (21-32) mmol/L Anion Gap 10.0 8.0 (3-11) BUN 55 H 56 H (7-18) mg/dl Creatinine 2.28 H D 2.90 H (0.6-1.4) mg/dl Est Cr Clr Drug Dosing 41.1 32.3 ml/min Est GFR ( Amer) 35.8 26.8 Est GFR (Non-Af Amer) 30.9 23.1 BUN/Creatinine Ratio 23.9 H 19.3 (10-20) Glucose 122 H 129 H (70-99) mg/dl Calcium 9.5 9.5 (8.5-10.1) mg/dl Phosphorus 4.3 (2.5-4.9) mg/dl Magnesium 2.2 (1.8-2.4) mg/dl Total Bilirubin 1.2 H (0.2-1) mg/dl AST 21 (15-37) U/L ALT 41 (12-78) U/L Alkaline Phosphatase 96 (45-117) U/L Total Creatine Kinase 82 (39-308) U/L Troponin I 1.960 H* (0-0.045) ng/ml Total Protein 7.3 (6.4-8.2) gm/dl Albumin 4.0 (3.4-5.0) gm/dl Globulin 3.3 (2.5-4.0) gm/dl Albumin/Globulin Ratio 1.2 (0.9-2) Urine Color Urine Appearance (Clear) Urine pH (4.5-7.5) Ur Specific [place] (1.000-1.030) Urine Protein (Negative) Urine Glucose (UA) (Negative) Urine Ketones (Negative) Urine Blood (Negative) Urine Nitrite (Negative) Urine Bilirubin (Negative) Urine Urobilinogen (Negative) Ur Leukocyte Esterase (Negative) Ur Random Creatinine Ur Random Sodium mmol/L Hepatitis C Ab Screen Neg (Neg) 08/28/18 Range/Units 15:24 WBC 11.42 H (4.8-10.8) K/uL RBC 6.18 H (4.7-6.1) M/uL Hgb 19.2 H (14.0-18.0) g/dL Hct 53.7 H (42-52) % MCV 86.9 (80-100) fL MCH 31.1 (25-34) pg MCHC 35.8 (32-36) g/dL RDW Std Deviation 44.4 (36.4-46.3) fL RDW Coeff of Karla 14.1 (11.5-14.5) % Plt Count 219 (130-400) K/uL MPV 10.5 H (7.4-10.4) fL Immature Gran % (Auto) 0.3 % Neut % (Auto) 82.7 % Lymph % (Auto) 11.6 % [place] % (Auto) 4.5 % Eos % (Auto) 0.7 % Baso % (Auto) 0.2 % Immature Gran # (Auto) 0.03 H (0.00-0.02) K/uL Neut # (Auto) 9.45 H (1.4-6.5) K/uL Lymph # (Auto) 1.33 (1.2-3.4) K/uL [place] # (Auto) 0.51 (0.11-0.59) K/uL Eos # (Auto) 0.08 (0-0.5) K/uL Baso # (Auto) 0.02 (0-0.2) K/uL Sodium (136-145) mmol/L Potassium (3.5-5.1) mmol/L Chloride (98-107) mmol/L Carbon Dioxide (21-32) mmol/L Anion Gap (3-11) BUN (7-18) mg/dl Creatinine (0.6-1.4) mg/dl Est Cr Clr Drug Dosing ml/min Est GFR ( Amer) Est GFR (Non-Af Amer) BUN/Creatinine Ratio (10-20) Glucose (70-99) mg/dl Calcium (8.5-10.1) mg/dl Phosphorus (2.5-4.9) mg/dl Magnesium (1.8-2.4) mg/dl Total Bilirubin (0.2-1) mg/dl AST (15-37) U/L ALT (12-78) U/L Alkaline Phosphatase (45-117) U/L Total Creatine Kinase (39-308) U/L Troponin I (0-0.045) ng/ml Total Protein (6.4-8.2) gm/dl Albumin (3.4-5.0) gm/dl Globulin (2.5-4.0) gm/dl Albumin/Globulin Ratio (0.9-2) Urine Color Urine Appearance (Clear) Urine pH (4.5-7.5) Ur Specific [place] (1.000-1.030) Urine Protein (Negative) Urine Glucose (UA) (Negative) Urine Ketones (Negative) Urine Blood (Negative) Urine Nitrite (Negative) Urine Bilirubin (Negative) Urine Urobilinogen (Negative) Ur Leukocyte Esterase (Negative) Ur Random Creatinine Ur Random Sodium mmol/L Hepatitis C Ab Screen (Neg) (1) CAD (coronary artery disease), [place] coronary artery Associated angina: without angina [place] vs. transplanted heart: [place] heart Qualified Code(s): I25.10 - Atherosclerotic heart disease of [place] coronary artery without angina pectoris (2) Hypertension Hypertension type: essential hypertension Qualified Code(s): I10 - Essential (primary) hypertension (3) Hypotension Hypotension type: orthostatic hypotension Qualified Code(s): I95.1 - Orthostatic hypotension
[2018-08-30 05:59] LABS: Hematocrit (blood only) 44.2 % (42-52); Mean Corpuscular Hgb Conc 33.9 g/dL (32-36); Mean Corpuscular Volume 88.2 fL (80-100); Mean Platelet Volume 10.1 fL (7.4-10.4); Platelet Count 139 K/uL (130-400); RDW Coefficient of Variation 13.7 % (11.5-14.5); Red Blood Count 5.01 M/uL (4.7-6.1); White Blood Count 4.74 K/uL (4.8-10.8)
[2018-08-30 06:36] LABS: BUN Creatinine Ratio 19.1 (10-20); Calcium 8.7 mg/dl (8.5-10.1); Creatinine Clr Calc Pharmacy 57.8 ml/min; Est GFR (African American) 54.2; Est GFR (Non-African American) 46.7; Potassium 3.9 mmol/L (3.5-5.1)
[2018-08-30] MEDS: ATORVASTATIN 40 MG TAB PO SCH (08:11)
[2018-08-30] MEDS: METOPROLOL SUCC 25MG EXT REL TAB PO SCH (08:12)
[2018-08-30] MEDS: ASPIRIN 81 MG ECTAB PO SCH (08:12)
[2018-08-30] MEDS: CLOPIDOGREL BISULFATE 75 MG TAB PO SCH (08:12)
--- NOTE | 2018-08-30 12:10 | Discharge Summary ---
Date of Service August 30, 2018 Admission HPI Per Admitting Provider Mr. Castro is a 57yo C male with history of DM, HTN, HLP and colon cancer s/p resection in 2009. He was recently admitted on 08/23 with an NSTEMI. He had a cardiac catheterization performed which revealed nonobstructive CAD. He was discharged home on 08/25/18 on ASA, Plavix, Atorvastatin, Metoprolol and Lisinopril. He reports compliance with his medications and overall feeling well. Today he had a followup appointment with his PCP. He felt well during the appointment but as he was checking out he became dizzy and passed out. He laid down to rest in the office but continued to feel dizzy upon standing so he was sent to the ER. Patient with mildly low BP in the ER, 98/72. Laboratory workup revealed elevated BUN and Cr, 56 and 2.9, respectively. Patient presently with no additional complaints. Reports adequate oral intake. He denies CP/palpitations/SOB/cough/orthopnea/fevers/chills. Denies abdominal pain/nausea/vomiting/diarrhea or constipation. ER Course: NSS Admission Exam Per Admitting Provider General: patient resting comfortably, NAD, non-toxic in appearance, AA&O x 4 Skin: warm, dry, intact, no rashes or lesions HEENT: NC/AT, PERRL, EOMI, anicteric sclera, conjunctiva without injection, external ear normal to inspection and nontender, nares patent, moist mucus membranes, dentition intact, no oropharyngeal lesions, neck supple, trachea midline, no LAD, no thyromegaly, no JVD Heart: +S1/S2, regular, no m/r/g Lungs: equal air entry bilaterally, no rales/rhonchi/wheezes Abd: +BS, soft, NT/ND, no masses/organomegaly/ascites Ext: warm, 2+ pulses in UE/LE bilaterally, no clubbing/cyanosis or edema Neuro: nonfocal, patient AA&O x 4, speech intact, no facial droop, moving all extremities on command with equal strength 5/5 Principal Diagnosis Syncope, Acute Kidney Injury Discharge Exam General: Resting comfortably in no apparent distress; A&OX3 HEENT: NC/AT; PERRLA with EOMI; [place] conjunctiva, MMM. No erythema of posterior pharynx Neck: Supple and nontender Cardiac: RRR w/o murmurs, gallops or rubs Lungs: CTA bilaterally; No rhonchi, wheezing, or rales Abdomen: Bowel normoactive X 4; Nontender to palpation Extremities: Warm. No edema present Neuro: No focal weakness Skin: No rash Discharge Data Allergies Allergy/AdvReac Type Severity Reaction Status Date / Time No Known Allergies Allergy Verified 08/28/18 15:46 Consultations 08/28/18 18:02 ED Decision to Admit Stat Ordered Studies CXR 08/28/18 Hospital Course (1) Hypotension: SBP 90's as outpatient and at presentation in the ED -- likely led to dizz iness and syncopal episode at PCP office. Medication induced -- recently started Metoprolol succinate 50 mg daily and Lisinopril 10 mg daily. BP improved after holding Metoprolol and Lisinopril; restarted Metoprolol at lower dose of 25 mg qAM on 08/29. Received IVFs at 125 cc/hr x 2 bags. Orthostatic vital signs were negative. Will continue to hold ACEI at discharge and continue Metoprolol at lower dose of 25 mg daily. F/u with PCP scheduled on 09/05, f/u with cardiology also scheduled in September 2018. (2) Syncope: Likely related to medication induced hypotension; no further episodes of syncope noted. Treatment of hypotension as noted above. Most recent TTE showed preserved EF, hypokinetic inferior wall and severe LVH. No significant valvular abnormalities. (3) Dehydration: Received IV fluids at 125 cc/hr, total of 2 bags. (4) Acute kidney injury: Likely related to dehydration vs. medication induced (ACEI?) vs. possible ATN from hypotension. FeNa was 0.3%, likely pre-renal; U/a negative. D/c'ed ACEI due to hypotension and renal failure. Renal function improving, was 1.6 on day of discharge (very close to baseline) (5) Stage III chronic kidney disease: Does follow with Dr. Borrero from nephrology. Renally dosed all meds. (6) CAD (coronary artery disease), [place] coronary artery: S/p NSTEMI, admitted 08/23/18. Trop elevated, was likely still trending down from previous elevation. No evidence of acute ischemia during this admission. Continued aspirin/plavix/statin as prescribed. Resumed Metoprolol at lower dose of 25 mg daily. D/c'ed Lisinopril in setting of MERCED and hyoptension. (7) Diabetes mellitus type 2, diet-controlled: Hemoglobin A1C was 5.5. Heart healthy diet. (8) Dyslipidemia: Continued statin as prescribed. (9) Hypertension: Resumed Metoprolol at 25 mg daily; d/c'ed ACEI due to MERCED and hypotension. (10) DVT prophylaxis: Encouraged ambulation. Stable for discharge to home on 08/30/18. Total Time Total Time Spent Total Time Spent (In Minutes): >30 minutes Total Time Includes: Examination of the Patient, Discharge Planning, Medication Reconciliation, Communication With Other Providers and Other Discharge Plan Discharge Items Patient Disposition: Home - Self-Care Reason For Visit: MERCED ON CKD Discharge Diagnosis: Acute Kidney Injury, Syncope Condition: Good Discharge Goals: Decrease discomfort, Improve disease control, Improve function, Increase independence, Improve nutritional status and Prevent disease Activity: As commented below Exercise/Sports: Gradually increase as tolerated Non-emergency contact: Primary Care Provider and [employer] Call non-emergency contact if: you have any medication questions, your symptoms worsen, your pain is not controlled, your pain is worsening, your pain is unusual for you, your pain is concerning for you and you have a fever Follow-up/Referrals: Jose A Aquino MD [Physician] - 09/11/18 10:40 am (Please, follow up at [facility] Office with Dr. Aquino on TuesdaySeptember 11 at 11:00 am (arrive 10:40 am). *The office is located in [address] of [facility]. This is the big building next to [facility]. If you need to change this appointment, call the office at [phone].) Alex Sol DO [Primary Care Provider] - 09/05/18 1:30 pm (Please, follow up at Dr. Sol's office with his associate, Dr. Markus Rivera, on TuesdaySeptember 05 at 1:30 pm. *If you need to change this appointment, call their office at [phone].) Diet: Heart Healthy Addtl Provider Instructions: 1. Syncope * Please continue to drink plenty of fluids at home to avoid dehydration. * Metoprolol dose has been decreased from 50 mg daily to 25 mg daily. * Lisinopril has been discontinued due to low blood pressure leading to syncope. * Please monitor blood pressure at home if you develop dizziness. Record all readings and bring documentation to your next PCP appointment. * Please follow up with Dr. Sol as scheduled on 09/05/18. * An appointment will be scheduled with cardiology in the near future following recent NSTEMI. 2. Acute Kidney Injury * Renal function is now improving following IV fluid hydration. * Please continue to drink plenty of fluids, at leas 8 glasses of water per day. * You will need follow up labs to monitor renal function in the future; continue to follow with Dr. Borrero as scheduled. 3. Prescription for new medication (Metoprolol succinate 25 mg tablet) was sent to your pharmacy - [facility] on [facility]. Prescriptions: New metoprolol succinate 25 mg Tablet Extended Release 24 Hr 25 mg PO QAM 30 Days Qty: 30 RF: 2 Continued atorvastatin 40 mg Tablet 80 mg PO QAM Qty: 30 RF: 0 clopidogrel 75 mg Tablet 75 mg PO QAM Qty: 30 RF: 0 nitroglycerin [Nitrostat] 0.4 mg Tablet, Sublingual 0.4 mg sublingual UD PRN (Reason: chest pain) Qty: 30 RF: 0 aspirin [Ecotrin Low Strength] 81 mg Tablet,Delayed Release (Dr/Ec) 81 mg PO QAM Qty: 30 RF: 0 Discontinued metoprolol succinate 50 mg Tablet Extended Release 24 Hr 50 mg PO QAM Qty: 30 RF: 0 lisinopril 10 mg Tablet 10 mg PO QAM Qty: 30 RF: 0 Stand-Alone Forms: [facility], Work/School Release (Inpt) Discharge Orders: Discharge Order (Routine); Ordered 08/30/18 Ordered By: Magalys Nieto Admission Data Admit Date/Time: 08/29/18 13:25 Attending Provider: Ted Carvajal Admit Provider: Layla Kerr Primary Care Provider: Alex Sol Other Providers: Layla Kerr ; Magalys Nieto Service: Medical Other Interventions: Discharge Summary Assessment (RN) Last Done: 08/30/18 13:12 Pending Studies at Discharge: No DC Date/Time DO NOT enter until pt leaves facility: 08/30/18 14:07 Supervising Physician Co-Signing Physician Notes Attending Discharge Note & Attestation: Pt seen/examined, chart reviewed, discharge care plan d/w SELINA Nieto. I agree w/ the villarreal components of her discharge summary. 57yo male with recent NSTEMI who presented from the office with dizziness/lightheadedness and subsequent syncope. At time of presentation had evidence of significant acute kidney injury with creatinine of nearly 3 (baseline mid 1's). Recently instituted beta yonatan and GENE were held and he was hydrated. Orthostasis resolved, low BPs improved, and creatinine gradually improved. [facility] 1.6. Beta yonatan was restarted at discharge but GENE inhibitor was held. He never had evidence of recurrent NSTEMI or other cardiac process. Exact cause of MERCED was not 100% certain but could have been due to hypotension itself, GENE inhibitor, or even recently used IV contrast for his cardiac cath. Discharge exam - gen - NAD mouth - MMM heart - RRR, s1 s2, no murmur lungs - CTA b/l abd - soft NT ND BS+ ext - no edema Tde Carvajal MD
== END 2018-08-30 14:07 | disposition home or self-care (01) | DRG 312 ==
LOC: ED 15:08 → 2N 15:08 → SUATTDRO 19:41 → 2N 20:23
DX: N17.0 Acute kidney failure with tubular necrosis; Z85.038 Personal history of other malignant neoplasm of large intestine; I25.2 Old myocardial infarction; E86.0 Dehydration; N18.3 Chronic kidney disease, stage 3 (moderate); Z79.82 Long term (current) use of aspirin; Z79.02 Long term (current) use of antithrombotics/antiplatelets; I12.9 Hypertensive chronic kidney disease with stage 1 through stage 4 chronic kidney disease, or unspecified chronic kidney disease; E11.22 Type 2 diabetes mellitus with diabetic chronic kidney disease; N17.8 Other acute kidney failure; I25.10 Atherosclerotic heart disease of native coronary artery without angina pectoris; R55 Syncope and collapse; I95.2 Hypotension due to drugs; T46.4X5A Adverse effect of angiotensin-converting-enzyme inhibitors, initial encounter; T44.7X5A Adverse effect of beta-adrenoreceptor antagonists, initial encounter; E78.5 Hyperlipidemia, unspecified; Z90.49 Acquired absence of other specified parts of digestive tract; Z79.899 Other long term (current) drug therapy